=== PATIENT | female | born 1990 ===

== ENCOUNTER 2020-11-17 17:15 | Inpatient (IN) | payer OTHER, SELFPAY ==
--- NOTE | ~2020-11-17 | CT_ITS ---
EXAMINATION: CT ABDOMEN AND PELVIS WITH CONTRAST CLINICAL INFORMATION: Lower abdominal pain. Elevated white blood cell count. Rule out appendicitis COMPARISON: Pelvic ultrasound earlier the same day TECHNIQUE: Multidetector volumetric images were obtained from the superior aspect of the liver through the pubic symphysis following administration 85 mL of Omnipaque 350 intravenous contrast. Sagittal and coronal reformatted images were obtained on the technologist's workstation. Oral contrast: No This CT examination was performed using dose optimization techniques as appropriate, variously including the following: *Automated exposure control *Adjustment of mA and/or kV according to patient size (this includes techniques or standardized protocols for targeted exams where dose is matched to indication/reason for exam; i.e. extremities or head) *Use of iterative reconstruction technique DLP: 774 mGy-cm FINDINGS: LUNG BASES: The visualized lung bases are unremarkable. LIVER, GALLBLADDER, AND BILIARY TREE: Liver is diffusely hypoattenuating consistent with diffuse hepatic steatosis. There is a likely gallstone in the gallbladder. No concerning focal liver lesion. No biliary ductal dilatation. PANCREAS: Unremarkable. SPLEEN: Unremarkable. ADRENAL GLANDS: Unremarkable. KIDNEYS AND URETERS: The kidneys are normal in size, shape, and attenuation. No hydronephrosis, hydroureter, or calculi seen. No perinephric stranding. BLADDER: Unremarkable. GASTROINTESTINAL TRACT: Stomach and small bowel are nondilated. The appendix is not seen but there are no right lower quadrant inflammatory changes to suggest acute appendicitis. No evidence of colitis or diverticulitis. ABDOMINAL WALL: No significant hernia is appreciated. LYMPH NODES: Normal. VASCULAR: Unremarkable. PELVIC VISCERA: As noted on the earlier ultrasound, there is fluid and material expanding the endocervical canal. Higher density material measures 46 Hounsfield units, possibly clot or soft tissue. The right ovary is normal in appearance. There is fluid and fat stranding adjacent the left adnexa. There is a somewhat tubular appearance on coronal images. OSSEOUS STRUCTURES: Unremarkable. CT/CT abdomen pelvis w con IMPRESSION: The appendix is not seen but there are no right lower quadrant inflammatory changes to suggest appendicitis. There is an abnormal appearance to the left ovary which appears enlarged with adjacent fluid and fat stranding. There is a somewhat tubular appearance on coronal images. Pelvic inflammatory disease with hydrosalpinx/pyosalpinx could give this appearance. Left ovarian torsion could contribute to the findings but there were normal arterial and venous spectral Doppler waveforms on the earlier ultrasound. Abnormal appearance of the endocervical canal with either clot or soft tissue expanding the endocervical canal. Recommend correlation with direct visualization.
--- NOTE | ~2020-11-17 | US_ITS ---
EXAMINATION: PELVIC ULTRASOUND CLINICAL INFORMATION: Pain COMPARISON: None TECHNIQUE: Transabdominal and transvaginal pelvic ultrasound was performed. Transvaginal exam was performed for better visualization of the uterus and ovaries. FINDINGS: The uterus is anteverted and measures 10.5 x 5.7 6.2 cm in dimension. No focal uterine lesion is seen. Endometrial thickness is normal measuring 1 cm. The endocervical canal is dilated. There is heterogeneous soft tissue mass seen in the endocervical canal measuring 2.9 x 1.5 x 2.3 cm in sagittal AP and transverse dimension. Demonstrates minimal vascularity. Differential would include blood clot and mass/polyp. The right ovary measures 3.5 x 2.6 x 2.6 cm and contains a 1.9 x 1.5 x 2 cm cyst. The left ovary measures 4.6 x 3 x 2.8 cm, volume 20 mL and is slightly enlarged. No focal left ovarian lesion is seen. There is no fluid in the pelvis. US/US transvaginal IMPRESSION: Fluid in the endocervical canal and heterogeneous appearing soft tissue questionable for blood clot versus a mass or polyp. Small right ovarian cyst. Slightly prominent left ovary.
--- NOTE | ~2020-11-17 | US_ITS ---
EXAMINATION: PELVIC ULTRASOUND CLINICAL INFORMATION: Pain COMPARISON: None TECHNIQUE: Transabdominal and transvaginal pelvic ultrasound was performed. Transvaginal exam was performed for better visualization of the uterus and ovaries. FINDINGS: The uterus is anteverted and measures 10.5 x 5.7 6.2 cm in dimension. No focal uterine lesion is seen. Endometrial thickness is normal measuring 1 cm. The endocervical canal is dilated. There is heterogeneous soft tissue mass seen in the endocervical canal measuring 2.9 x 1.5 x 2.3 cm in sagittal AP and transverse dimension. Demonstrates minimal vascularity. Differential would include blood clot and mass/polyp. The right ovary measures 3.5 x 2.6 x 2.6 cm and contains a 1.9 x 1.5 x 2 cm cyst. The left ovary measures 4.6 x 3 x 2.8 cm, volume 20 mL and is slightly enlarged. No focal left ovarian lesion is seen. There is no fluid in the pelvis. US/US pelvic complete IMPRESSION: Fluid in the endocervical canal and heterogeneous appearing soft tissue questionable for blood clot versus a mass or polyp. Small right ovarian cyst. Slightly prominent left ovary.
[2020-11-17 19:14] VITALS: BP 147/90; PULSE 115; RESP 16; TEMP 37.1; O2SAT 100; BMI 32.4
--- NOTE | 2020-11-17 19:15 | ED.FEMALEGU ---
HPI - Female Genitourinary General Chief complaint: Back Pain/Injury Stated complaint: menstrual pain Time Seen by Provider: 11/17/20 19:15 Source: patient Mode of arrival: ambulatory Limitations: no limitations History of Present Illness HPI Narrative: 29 yo female on her period here with lower abdominal pain c/o suprapubic pelvic and wraps around her back - at this time no prior events when she has had her menses MD elicited complaint: pelvic pain Onset (ago): day(s) (2) Location of symptoms: suprapubic and low back Severity: moderate Quality of pain: aching Consistency: constant Vaginal discharge: none Vaginal bleeding: other (typical period for her) Exacerbating factors: none Relieving factors: none Associated symptoms: denies other symptoms Related Data Allergies Allergy/AdvReac Type Severity Reaction Status Date / Time No Known Allergies Allergy Verified 11/17/20 19:20 Review of Systems Review of Systems: Constitutional : No Weight loss, No Fever, No Chills ENT/Mouth : No sore throat, No Rhinorrhea Eyes: No Swelling, No Redness Cardiovascular : No Chest Pain, No SOB, NoEdema Respiratory : No Cough, No Sputum, No Wheezing Gastrointestinal : no Nausea, no Vomiting, no Diarrhea, positive abdominal Pain, No Hematochezia, No Melena Genitourinary : No Dysuria, No Urinary Frequency, No Hematuria, No Urgency Musculoskeletal : No joint pain, No Myalgias, No Joint Swelling Skin : No Skin Lesions, No rash Neuro : No Weakness, No Numbness, No Dizziness, No Headache Psych : No Anxiety/Panic, No Depression Heme/Lymph: No Bruising, No Lymphadenopathy Endocrine : No Polyuria, No Polydipsia All other systems reviewed and are negative. ON LICENSE OF [facility] Past Medical History Attestation statement: The following information was validated with the patient. Medical History (Updated 11/17/20 @ 22:46 by Surekha Keys DO) No active medical problems Social History Social History (Updated 11/17/20 @ 19:31 by Surekha Keys DO) Smoking Status: Never smoker Use of substances other than those prescribed or required for medical reasons: No Advance Directives: No Advance Directives Information Provided: Yes Patient : No Physical Exam Vital Signs: Vital Signs: Last Vital Signs Temp 98.4 F 11/17/20 22:28 Pulse 87 11/17/20 22:28 Resp 14 11/17/20 22:28 BP 140/91 H 11/17/20 22:28 Pulse Ox 100 11/17/20 22:28 Body Mass Index 32.4 Appearance: Alert. Oriented X3. No acute distress. Eyes: Pupils equal, round and reactive to light. ENT: Pharynx normal. Neck: Normal inspection. Neck supple. CVS: Normal heart rate and rhythm. Pulses normal. Respiratory: No respiratory distress. Breath sounds normal. Abdomen: Soft and mild suprapubic ttp no rebound or guarding : internal exam - L sided ovarian ttp + fullness felt, no CMT, pink discharge noted on exam from os Skin: Skin warm and dry. Normal skin color. Normal skin turgor. Extremities: No lower extremity edema. No calf ttp Neuro: Oriented X 3. No motor deficit. No sensory deficit. Course Course Course Narrative: 1031 pm possible infection suspected, lactic acid, cultures, IV antibiotics, call to OBGYN at this time Dr. Menendez ?possible TOA will admit for further workup and management MDM - Female Genitourinary MDM Narrative Medical decision making narrative: 29 yo female suprapubic abdominal pain on her menses but does not usually have pain like this - pain across entire abdomen at this time will need labs, PO pain control, US to evaluate ovaries for cyst, bilateral pain without n/v seems atypical for appendicitis Lab Data Result diagrams: 11/17/20 19:33 11/17/20 19:33 Labs: Lab Results 11/17/20 11/17/20 11/17/20 Range/Units 19:33 19:33 19:33 WBC 16.4 H (4.8-10.8) X10*3/uL RBC 4.55 (4.20-5.50) X10*6/uL Hgb 13.0 (12.0-16.0) g/dl Hct 38.8 (37-47) % MCV 85.3 (80-98) fL MCH 28.6 (27.0-33.0) pg MCHC 33.5 (31.0-35.0) g/dl RDW 12.5 (11.0-16.0) % Plt Count 329 (160-400) X10*3/uL MPV 10.6 (9.4-12.3) fL Immature Gran % (Auto) 0.5 H (0.0-0.4) % Neut % (Auto) 78.2 H (45-73) % Lymph % (Auto) 13.7 L (20-40) % [place] % (Auto) 6.8 (2-11) % Eos % (Auto) 0.4 (0-4) % Baso % (Auto) 0.4 (0-2) % Lymph # (Auto) 2.2 (1.2-4.9) X10*3/uL [place] # (Auto) 1.1 (0.1-1.2) X10*3/uL Eos # (Auto) 0.1 (0.0-0.4) X10*3/uL Baso # (Auto) 0.1 (0.0-0.2) X10*3/uL Abs Immat Gran (auto) 0.09 H (0.00-0.03) X10*3/uL Absolute Neuts (auto) 12.8 H (2.0-8.3) X10*3/uL Absolute Nucleated RBC 0.000 (0.0-0.012) X10*3/uL Nucleated RBC % (auto) 0.0 (0.0-0.2) /100WBC Sodium 138 (135-145) mmol/L Potassium 3.8 (3.3-5.1) mmol/L Chloride 103 (96-108) mmol/L Carbon Dioxide 25 (22-29) mmol/L Anion Gap 14 (12-20) BUN 10 (9-16) mg/dL Creatinine 0.76 (0.5-1.4) mg/dL Estim Creat Clear Calc 114.7 Estimated GFR > 60 Random Glucose 112 (60-115) mg/dL Calcium 9.5 (8.4-10.2) mg/dL Total Bilirubin 0.5 (0.0-1.0) mg/dL Direct Bilirubin 0.2 (0.0-0.5) mg/dL AST 16 (5-31) U/L ALT 30 (0-31) U/L Alkaline Phosphatase 87 (39-117) U/L Total Protein 7.6 (6.5-8.0) g/dL Albumin 4.0 (3.5-5.0) g/dL Lipase 8 (8-78) U/L Urine Color YELLOW Urine Appearance CLEAR Urine pH 6.0 (5.0-8.0) Ur Specific [place] 1.025 (1.005-1.025) Urine Protein NEG (NEG-TRACE) MG/DL Urine Glucose (UA) NEG (NEG) MG/DL Urine Ketones 5 (NEG) MG/DL Urine Blood 2+ H (NEG) Urine Nitrite NEG (NEG) Ur Leukocyte Esterase NEG (NEG) Urine RBC 0-2 (0) /HPF Urine WBC 0-2 (0-4) /HPF Ur Squamous Epith Cells 2+ /LPF Urine Bacteria 2+ /LPF Urine Mucus NONE /LPF Urine Test (NEGATIVE) 11/17/20 Range/Units 19:33 WBC (4.8-10.8) X10*3/uL RBC (4.20-5.50) X10*6/uL Hgb (12.0-16.0) g/dl Hct (37-47) % MCV (80-98) fL MCH (27.0-33.0) pg MCHC (31.0-35.0) g/dl RDW (11.0-16.0) % Plt Count (160-400) X10*3/uL MPV (9.4-12.3) fL Immature Gran % (Auto) (0.0-0.4) % Neut % (Auto) (45-73) % Lymph % (Auto) (20-40) % [place] % (Auto) (2-11) % Eos % (Auto) (0-4) % Baso % (Auto) (0-2) % Lymph # (Auto) (1.2-4.9) X10*3/uL [place] # (Auto) (0.1-1.2) X10*3/uL Eos # (Auto) (0.0-0.4) X10*3/uL Baso # (Auto) (0.0-0.2) X10*3/uL Abs Immat Gran (auto) (0.00-0.03) X10*3/uL Absolute Neuts (auto) (2.0-8.3) X10*3/uL Absolute Nucleated RBC (0.0-0.012) X10*3/uL Nucleated RBC % (auto) (0.0-0.2) /100WBC Sodium (135-145) mmol/L Potassium (3.3-5.1) mmol/L Chloride (96-108) mmol/L Carbon Dioxide (22-29) mmol/L Anion Gap (12-20) BUN (9-16) mg/dL Creatinine (0.5-1.4) mg/dL Estim Creat Clear Calc Estimated GFR Random Glucose (60-115) mg/dL Calcium (8.4-10.2) mg/dL Total Bilirubin (0.0-1.0) mg/dL Direct Bilirubin (0.0-0.5) mg/dL AST (5-31) U/L ALT (0-31) U/L Alkaline Phosphatase (39-117) U/L Total Protein (6.5-8.0) g/dL Albumin (3.5-5.0) g/dL Lipase (8-78) U/L Urine Color Urine Appearance Urine pH (5.0-8.0) Ur Specific [place] (1.005-1.025) Urine Protein (NEG-TRACE) MG/DL Urine Glucose (UA) (NEG) MG/DL Urine Ketones (NEG) MG/DL Urine Blood (NEG) Urine Nitrite (NEG) Ur Leukocyte Esterase (NEG) Urine RBC (0) /HPF Urine WBC (0-4) /HPF Ur Squamous Epith Cells /LPF Urine Bacteria /LPF Urine Mucus /LPF Urine Test NEGATIVE (NEGATIVE) Discharge Plan Discharge Clinical Impression: TOA (tubo-ovarian abscess) Leukocytosis Qualifiers: Leukocytosis type: unspecified Qualified Code(s): D72.829 - Elevated white blood cell count, unspecified Abdominal pain Qualifiers: Abdominal location: left lower quadrant Qualified Code(s): R10.32 - Left lower quadrant pain Patient Disposition: Admitted As Inpatient
[2020-11-17 19:41] LABS: MANUAL DIFF FLAG NO
[2020-11-17 19:42] LABS: Basophils Absolute Auto 0.1 X10*3/uL (0.0-0.2); Basophils Percent Auto 0.4 % (0-2); Eosinophils Absolute Auto 0.1 X10*3/uL (0.0-0.4); Eosinophils Percent Auto 0.4 % (0-4); Hematocrit 38.8 % (37-47); Imm Gran Abs Auto 0.09 X10*3/uL (0.00-0.03); Imm Gran Pct Auto 0.5 % (0.0-0.4); Lymphocytes Absolute Auto 2.2 X10*3/uL (1.2-4.9); Lymphocytes Percent Auto 13.7 % (20-40); Mean Corpuscular HGB Conc 33.5 g/dl (31.0-35.0); Mean Corpuscular Hemoglobin 28.6 pg (27.0-33.0); Mean Corpuscular Volume 85.3 fL (80-98); Mean Platelet Volume 10.6 fL (9.4-12.3); Monocytes Absolute Auto 1.1 X10*3/uL (0.1-1.2); Monocytes Percent Auto 6.8 % (2-11); Neutrophils Absolute Auto 12.8 X10*3/uL (2.0-8.3); Neutrophils Percent Auto 78.2 % (45-73); Platelet Count 329 X10*3/uL (160-400); Red Blood Count 4.55 X10*6/uL (4.20-5.50); Red Cell Distribution Width 12.5 % (11.0-16.0); White Blood Count 16.4 X10*3/uL (4.8-10.8)
[2020-11-17 19:47] LABS: Glucose Urine UA NEG (NEG); Leukocyte Esterase Urine NEG (NEG); Nitrite Urine NEG (NEG); Specific Gravity - Urine 1.025 (1.005-1.025); Urine Blood 2+ (NEG); Urine Ketones 5 MG/DL (NEG); Urine Protein NEG (NEG-TRACE)
[2020-11-17 19:49] LABS: Appearance Urine CLEAR; Color Urine YELLOW
[2020-11-17 19:51] LABS: UPreg QC Valid YES; Urine Pregnancy NEGATIVE (NEGATIVE)
[2020-11-17 20:06] LABS: Bacteria Urine 2+ /LPF; RBC Urine 0-2 /HPF (0); Squamous Epithelial Cell Urine 2+ /LPF; WBC Urine 0-2 /HPF (0-4)
[2020-11-17 20:14] LABS: Alanine Aminotransferase 30 U/L (0-31); Alkaline Phosphatase 87 U/L (39-117); Anion Gap 14 (12-20); Aspartate Amino Transferase 16 U/L (5-31); Bilirubin Direct 0.2 mg/dL (0.0-0.5); Bilirubin Total 0.5 mg/dL (0.0-1.0); Blood Urea Nitrogen 10 mg/dL (9-16); Calcium 9.5 mg/dL (8.4-10.2); Carbon Dioxide 25 mmol/L (22-29); Chloride 103 mmol/L (96-108); Creatinine Clr Calc Pharmacy 114.7; Estimated Glomerular Filt Rate > 60; Glucose Random 112 mg/dL (60-115); Lipase 8 U/L (8-78); Potassium 3.8 mmol/L (3.3-5.1); Sodium 138 mmol/L (135-145); Total Protein 7.6 g/dL (6.5-8.0)
[2020-11-17] MEDS: Ibuprofen 600 MG TABLET PO (20:15)
[2020-11-17] MEDS: HYDROcodone Bit/Acetam 5/325 TABLET 1 TAB PO (20:16)
[2020-11-17] MEDS: iohexoL 350 MG/ML 100 ML INFUS..BTL IV (22:07)
[2020-11-17 22:28] VITALS: BP 140/91; PULSE 87; RESP 14; TEMP 36.9; O2SAT 100
--- NOTE | 2020-11-17 23:03 | PM.GYNHP ---
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 The patient's pain started getting worse over the coming 2 days till Wednesday evening when she presented emergency room with worsening of her pain no associated urinary or GI symptoms, no vaginal bleeding or discharge. 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 Systems Review of Systems ROS Unobtainable: All systems reviewed & are unremarkable except as noted in HPI and below Cardiovascular: Denies Palpatations, Loss of consciousness and Chest pain Respiratory: Denies Cough, Wheezing and Shortness of breath Musculoskeletal: Denies Low back pain Gastrointestinal: Denies Heartburn, Constipation, Diarrhea, Nausea and Vomiting Genitourinary: Denies Pain with urination, Burning with urination and Urinary frequency Neurological: Denies Migranes Psychological: Denies Depression OB PMFSH Past Medical History Medical History No active medical problems Social History Social History Household Members: Family Household Members Other:: mother Housing: Apartment Smoking Status: Never smoker Use of substances other than those prescribed or required for medical reasons: No Currently Displaying Signs/Symptoms of Drug Intoxication Withdrawal: No Have you been hit, kicked, punched, or otherwise hurt by someone within the past year? If so, by whom?: No Do you feel safe in your current relationship?: Yes Is there a partner from a previous relationship who is making you feel unsafe now?: No Are you made to feel afraid or neglected: No Advance Directives: No Advance Directives Information Provided: Yes Do you have thoughts of harming others: None Do you have a plan to hurt others: No Plan Recently lost weight without trying: No Nutrition Risks: No Nutritional Risk Patient : No : No Poor oral hygiene: No service: No Current occupational status: employed Meds Allergies Allergy/AdvReac Type Severity Reaction Status Date / Time No Known Allergies Allergy Verified 11/17/20 19:20 Active Medications: Current Medications Generic Name Dose Route Start Last Admin Trade Name Freq PRN Reason Stop Dose Admin Pharmacy Consult 1 each 11/17/20 22:43 Consult Rx Perform Med Rec MISCELLANE ONCE PRN Consult order GEOGRAPHIC INFORMATION SYSTEMS ANALYST Physical Exam Vitals Vital signs: Temp Pulse Resp BP Pulse Ox 98.4 F 87 14 140/91 H 100 11/17/20 22:28 11/17/20 22:28 11/17/20 22:28 11/17/20 22:28 11/17/20 22:28 Body Mass Index 32.4 Constitutional General Appearance: Healthy appearing, Well-nourished and Well-developed Psychiatric Mood and Affect: active and alert, normal mood and normal affect Skin Appearance: No rashes and No lesions Lungs Respiratory Effort: No intercostal retractions Auscultation: Clear to auscultation Cardiovascular Auscultation: RRR Abdomen Auscultation/Inspection/Palpation: Normal bowel sounds, Non-distended and Tenderness (Left lower quadrant) Female Genitalia (Pelvic) Exam: Deferred GEOGRAPHIC INFORMATION SYSTEMS ANALYST - Results Labs CBC & Chem 7: 11/18/20 06:51 11/17/20 19:33 Labs: Short CBC 11/17/20 Range/Units 19:33 WBC 16.4 H (4.8-10.8) X10*3/uL Hgb 13.0 (12.0-16.0) g/dl Hct 38.8 (37-47) % Plt Count 329 (160-400) X10*3/uL BMP 11/17/20 19:33 Sodium 138 Potassium 3.8 Chloride 103 Carbon Dioxide 25 BUN 10 Creatinine 0.76 Calcium 9.5 Liver Function 11/17/20 Range/Units 19:33 Total Bilirubin 0.5 (0.0-1.0) mg/dL Direct Bilirubin 0.2 (0.0-0.5) mg/dL AST 16 (5-31) U/L ALT 30 (0-31) U/L Alkaline Phosphatase 87 (39-117) U/L Albumin 4.0 (3.5-5.0) g/dL Urine 11/17/20 11/17/20 Range/Units 19:33 19:33 Urine Color YELLOW Urine Appearance CLEAR Urine pH 6.0 (5.0-8.0) Ur Specific [place] 1.025 (1.005-1.025) Urine Protein NEG (NEG-TRACE) MG/DL Urine Glucose (UA) NEG (NEG) MG/DL Urine Test NEGATIVE (NEGATIVE) Assessment and Plan (1) TOA (tubo-ovarian abscess): Status: Acute Will admit start for IV antibiotics with cefotetan 2 g IV Q 12 with doxycycline 100 mg IV q.12, repeat CBC, HIV, hepatitis-B surface antigen, hepatitis-C surface antibody in a.m. pain management with p.o. ibuprofen, oxycodone, Tylenol as needed
[2020-11-17] MEDS: cefoTEtan disodium 2 GM in 0.9 % Sodium Chloride 50 ML IV (23:31)
[2020-11-17 23:33] LABS: COVID-19 Test Negative (Negative)
[2020-11-17 23:43] LABS: Lactic Acid 0.7 mmol/L (0.5-2.0)
--- NOTE | 2020-11-18 01:49 | PC.NURSE ---
PELVIC PERFORMED AT BEDSIDE BY DR DAVIS AND PCT WITNESS. PT AWARE SHE WILL BE ADMITTED FOR ANTIBIOTIC THERAPY.
--- NOTE | 2020-11-18 01:50 | PC.NURSE ---
PT MOVED TO MAIN ED ROOM 21 REPORT GIVEN TO LC AL.
[2020-11-18] MEDS: Lactated Ringers 1,000 ML 125 ML IVCONT ×3 (03:24→20:45)
[2020-11-18] MEDS: oxyCODONE HCl Immed Release 5 MG TABLET PO ×2 (03:25→20:45)
[2020-11-18 07:15] LABS: MANUAL DIFF FLAG NO
[2020-11-18 07:31] LABS: Basophils Percent Auto 0.3 % (0-2); Eosinophils Absolute Auto 0.1 X10*3/uL (0.0-0.4); Hematocrit 38.4 % (37-47); Hemoglobin 12.5 g/dl (12.0-16.0); Imm Gran Abs Auto 0.07 X10*3/uL (0.00-0.03); Imm Gran Pct Auto 0.6 % (0.0-0.4); Lymphocytes Percent Auto 15.5 % (20-40); Mean Corpuscular HGB Conc 32.6 g/dl (31.0-35.0); Mean Corpuscular Hemoglobin 28.4 pg (27.0-33.0); Mean Corpuscular Volume 87.3 fL (80-98); Mean Platelet Volume 10.8 fL (9.4-12.3); Monocytes Absolute Auto 0.9 X10*3/uL (0.1-1.2); Neutrophils Absolute Auto 9.6 X10*3/uL (2.0-8.3); Neutrophils Percent Auto 75.6 % (45-73); Platelet Count 295 X10*3/uL (160-400); Red Cell Distribution Width 12.5 % (11.0-16.0); White Blood Count 12.6 X10*3/uL (4.8-10.8)
[2020-11-18 08:00] VITALS: BP 133/79; PULSE 102; RESP 18; TEMP 36.4; O2SAT 97
[2020-11-18 08:46] LABS: BV Int Neg Control Negative (Negative); BV Int Pos Control Positive (Positive)
[2020-11-18 08:53] LABS: CT PCR NOT DETECTED (Not Detect.); NG PCR NOT DETECTED (Not Detect.)
[2020-11-18 09:04] LABS: Syphilis Screen Nonreactive (Nonreactive)
--- NOTE | 2020-11-18 09:36 | MHC.CM.PN ---
PATIENT LIVES WITH HER MOTHER. SHE IS INDEPENDENT WITH HER ADLS. NO DME OR VNA SERVICES. SHE WILL DISCHARGE HOME WITH NO SERVICES. FAMILY WILL PROVIDE TRANSPORTATION. PCP IS NOT DR FUNEZ. SHE NOW SEES GRACE CASTILLO. UPDATE MADE TO CASE MANAGEMENT OFFICE.
[2020-11-18] MEDS: cefoTEtan disodium 2 GM in 0.9 % Sodium Chloride 50 ML IV ×2 (10:18→22:00)
[2020-11-18] MEDS: Doxycycline Hyclate 100 MG in 0.9 % Sodium Chloride 250 ML 166.67 MG IV ×2 (11:56→22:42)
[2020-11-18 11:59] VITALS: BP 127/85; PULSE 89; RESP 18; TEMP 36.2; O2SAT 94
[2020-11-18 13:25] LABS: HBsAGNum1 0.26 S/CO (0.00-0.99); HIV AB/AG Nonreactive (Nonreactive); HIV Num 1 0.04 S/CO (0.00-0.99); Hepatitis B Surface Antigen Negative (Negative)
--- NOTE | 2020-11-18 13:32 | P.PNOB_ITS ---
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 Has been on cefotetan/doxycycline IV since yesterday evening, the pain has improved markedly, no fever, chills nausea or vomiting no other symptoms. 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 Physical Exam Vitals Vital signs: Temp Pulse Resp BP Pulse Ox 97.1 F 89 18 127/85 94 11/18/20 11:59 11/18/20 11:59 11/18/20 11:59 11/18/20 11:59 11/18/20 11:59 Body Mass Index 32.4 Abdomen Auscultation/Inspection/Palpation: Normal bowel sounds, Soft, Non-distended and No tenderness SWIMMING POOL ATTENDANT - Prog Note: Results Labs CBC & Chem 7: 11/18/20 06:51 11/17/20 19:33 Labs: Laboratory Results - last 24 hr 11/17/20 11/17/20 11/17/20 19:33 19:33 19:33 WBC 16.4 H RBC 4.55 Hgb 13.0 Hct 38.8 MCV 85.3 MCH 28.6 MCHC 33.5 RDW 12.5 Plt Count 329 MPV 10.6 Immature Gran % (Auto) 0.5 H Neut % (Auto) 78.2 H Lymph % (Auto) 13.7 L [place] % (Auto) 6.8 Eos % (Auto) 0.4 Baso % (Auto) 0.4 Lymph # (Auto) 2.2 Jay # (Auto) 1.1 Eos # (Auto) 0.1 Baso # (Auto) 0.1 Abs Immat Gran (auto) 0.09 H Absolute Neuts (auto) 12.8 H Absolute Nucleated RBC 0.000 Nucleated RBC % (auto) 0.0 Sodium 138 Potassium 3.8 Chloride 103 Carbon Dioxide 25 Anion Gap 14 BUN 10 Creatinine 0.76 Estim Creat Clear Calc 114.7 Estimated GFR > 60 Random Glucose 112 Lactic Acid Calcium 9.5 Total Bilirubin 0.5 Direct Bilirubin 0.2 AST 16 ALT 30 Alkaline Phosphatase 87 Total Protein 7.6 Albumin 4.0 Lipase 8 Urine Color YELLOW Urine Appearance CLEAR Urine pH 6.0 Ur Specific [place] 1.025 Urine Protein NEG Urine Glucose (UA) NEG Urine Ketones 5 Urine Blood 2+ H Urine Nitrite NEG Ur Leukocyte Esterase NEG Urine RBC 0-2 Urine WBC 0-2 Ur Squamous Epith Cells 2+ Urine Bacteria 2+ Urine Mucus NONE Urine Test T.pallidum Ab (EIA) Connie species DNA Chlam trachomat DNA PCR COVID-19 ([facility]) COVID-19 Clin Com [place] DNA Probe N.gonorrhoeae DNA (PCR) Trichomonas DNA Probe 11/17/20 11/17/20 11/17/20 19:33 19:33 23:03 WBC RBC Hgb Hct MCV MCH MCHC RDW Plt Count MPV Immature Gran % (Auto) Neut % (Auto) Lymph % (Auto) Jay % (Auto) Eos % (Auto) Baso % (Auto) Lymph # (Auto) Jay # (Auto) Eos # (Auto) Baso # (Auto) Abs Immat Gran (auto) Absolute Neuts (auto) Absolute Nucleated RBC Nucleated RBC % (auto) Sodium Potassium Chloride Carbon Dioxide Anion Gap BUN Creatinine Estim Creat Clear Calc Estimated GFR Random Glucose Lactic Acid 0.7 Calcium Total Bilirubin Direct Bilirubin AST ALT Alkaline Phosphatase Total Protein Albumin Lipase Urine Color Urine Appearance Urine pH Ur Specific [place] Urine Protein Urine Glucose (UA) Urine Ketones Urine Blood Urine Nitrite Ur Leukocyte Esterase Urine RBC Urine WBC Ur Squamous Epith Cells Urine Bacteria Urine Mucus Urine Test NEGATIVE T.pallidum Ab (EIA) Nonreactive Connie species DNA Chlam trachomat DNA PCR COVID-19 ([facility]) COVID-19 Clin Com [place] DNA Probe N.gonorrhoeae DNA (PCR) Trichomonas DNA Probe 11/17/20 11/17/20 11/17/20 23:04 23:04 23:05 WBC RBC Hgb Hct MCV MCH MCHC RDW Plt Count MPV Immature Gran % (Auto) Neut % (Auto) Lymph % (Auto) Jay % (Auto) Eos % (Auto) Baso % (Auto) Lymph # (Auto) Jay # (Auto) Eos # (Auto) Baso # (Auto) Abs Immat Gran (auto) Absolute Neuts (auto) Absolute Nucleated RBC Nucleated RBC % (auto) Sodium Potassium Chloride Carbon Dioxide Anion Gap BUN Creatinine Estim Creat Clear Calc Estimated GFR Random Glucose Lactic Acid Calcium Total Bilirubin Direct Bilirubin AST ALT Alkaline Phosphatase Total Protein Albumin Lipase Urine Color Urine Appearance Urine pH Ur Specific [place] Urine Protein Urine Glucose (UA) Urine Ketones Urine Blood Urine Nitrite Ur Leukocyte Esterase Urine RBC Urine WBC Ur Squamous Epith Cells Urine Bacteria Urine Mucus Urine Test T.pallidum Ab (EIA) Connie species DNA Negative Chlam trachomat DNA PCR NOT DETECTED COVID-19 ([facility]) Negative COVID-19 Clin Com See Note [place] DNA Probe Positive A N.gonorrhoeae DNA (PCR) NOT DETECTED Trichomonas DNA Probe Negative 11/18/20 06:51 WBC 12.6 H RBC 4.40 Hgb 12.5 Hct 38.4 MCV 87.3 MCH 28.4 MCHC 32.6 RDW 12.5 Plt Count 295 MPV 10.8 Immature Gran % (Auto) 0.6 H Neut % (Auto) 75.6 H Lymph % (Auto) 15.5 L [place] % (Auto) 7.0 Eos % (Auto) 1.0 Baso % (Auto) 0.3 Lymph # (Auto) 2.0 Jay # (Auto) 0.9 Eos # (Auto) 0.1 Baso # (Auto) 0.0 Abs Immat Gran (auto) 0.07 H Absolute Neuts (auto) 9.6 H Absolute Nucleated RBC 0.000 Nucleated RBC % (auto) 0.0 Sodium Potassium Chloride Carbon Dioxide Anion Gap BUN Creatinine Estim Creat Clear Calc Estimated GFR Random Glucose Lactic Acid Calcium Total Bilirubin Direct Bilirubin AST ALT Alkaline Phosphatase Total Protein Albumin Lipase Urine Color Urine Appearance Urine pH Ur Specific [place] Urine Protein Urine Glucose (UA) Urine Ketones Urine Blood Urine Nitrite Ur Leukocyte Esterase Urine RBC Urine WBC Ur Squamous Epith Cells Urine Bacteria Urine Mucus Urine Test T.pallidum Ab (EIA) [place] species DNA Chlam trachomat DNA PCR COVID-19 ([facility]) COVID-19 Clin Com [place] DNA Probe N.gonorrhoeae DNA (PCR) Trichomonas DNA Probe SWIMMING 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 antibiotics for 10 more days. Explained to the patient the findings on physical exam, initial workup in the emergency room and subsequent blood work this morning white count improvement, negative GC and chlamydia, syphilis and Trichomonas, hepatitis-B surface antigen, hepatitis-C antibody are pending Time Spent With Patient Time: Total time spent is greater than 50% in coordination of care (as documented) at patient's floor/unit and/or counseling patient: 15 minutes Time with patient: 15 - 24 minutes
[2020-11-18] MEDS: Acetaminophen 325 MG TABLET 650 MG PO (15:31)
[2020-11-18 16:00] VITALS: BP 135/85; PULSE 98; RESP 14; TEMP 36.4; O2SAT 99
[2020-11-18 20:00] VITALS: BP 144/83; PULSE 99; RESP 16; TEMP 36.9; O2SAT 96
[2020-11-19] VITALS: BP 135/82; PULSE 97; RESP 16; TEMP 36.5; O2SAT 99
[2020-11-19 04:00] VITALS: BP 113/62; PULSE 101; RESP 16; TEMP 37.1; O2SAT 100
[2020-11-19] MEDS: Lactated Ringers 1,000 ML 125 ML IVCONT (04:53)
[2020-11-19 08:00] VITALS: BP 117/72; PULSE 104; RESP 18; TEMP 36.3; O2SAT 99
[2020-11-19 08:30] LABS: ~HepC Num1 0.08 S/CO (0.00-0.79); ~Hepatitis C Antibody Nonreactive (Nonreactive)
[2020-11-19] MEDS: cefoTEtan disodium 2 GM in 0.9 % Sodium Chloride 50 ML IV (09:24)
[2020-11-19] MEDS: Doxycycline Hyclate 100 MG in 0.9 % Sodium Chloride 250 ML 166.67 MG IV (10:03)
--- NOTE | 2020-11-19 11:07 | P.PNOB_ITS ---
GENERAL SERVICE TECHNICIAN - Subjective Subjective Date of Service: 11/19/20 Interval history: Doing well with no complaints. Has been on cefotetan/doxycycline IV since Wednesday evening, the pain has improved markedly, no fever, chills nausea or vomiting no other symptoms. On no and a G6 [employer] Physical Exam Vitals Vital signs: Temp Pulse Resp BP Pulse Ox 97.4 F 104 H 18 117/72 99 11/19/20 08:00 11/19/20 08:00 11/19/20 08:00 11/19/20 08:00 11/19/20 08:00 Body Mass Index 32.4 Abdomen Auscultation/Inspection/Palpation: Normal bowel sounds, Soft, Non-distended and No tenderness GENERAL SERVICE TECHNICIAN - Prog Note: Results Labs CBC & Chem 7: 11/18/20 06:51 11/17/20 19:33 Labs: Laboratory Results - last 24 hr 11/18/20 06:51 Hep Bs Antigen Negative Hepatitis C Ab (EIA) Nonreactive HIV 1&2 Ab/P24 Ag 4thGn Nonreactive GENERAL SERVICE TECHNICIAN - A/P (1) TOA (tubo-ovarian abscess): Status: Acute Assessment and Plan: Will discharge patient home on p.o. doxycycline 100 mg p.o. b.i.d. for 14 days and follow-up in the office in 2 weeks. Instructions given to patient to call if fever above 100.4, abdominal pain, vaginal bleeding, nausea and vomiting occur. Time Spent With Patient Time: Total time spent is greater than 50% in coordination of care (as documented) at patient's floor/unit and/or counseling patient: Time with patient: less than 15 minutes
--- NOTE | 2020-11-19 11:49 | MHC.CM.PN ---
PATIENT IS DISCHARGED HOME WITH NO SERVICES. RN AWARE OF PLAN.
--- NOTE | 2020-11-20 09:16 | PM.DS ---
DS: Providers Provider Date of Service: 11/20/20 Date of admission: 11/17/20 22:46 Primary care physician: Joey Mcdowell MD DS: Diagnosis Discharge Diagnosis (1) TOA (tubo-ovarian abscess): Status: Acute DS: Medications Discharge Medications Home Medications: Previous Rx's Medication Instructions Recorded doxycycline monohydrate 100 mg 100 mg PO BID #14 cap 11/20/20 capsule DS: Summary Time Spent with Patient Time attestation: Total time spent providing and/or coordinating discharge services: 10 minutes Discharge coordination time: Less than 30 minutes Quality: Stroke Does the patient have a stroke diagnosis?: No Physical Exam Vital Signs: Vital Signs: Last Vital Signs Temp 97.4 F 11/19/20 08:00 Pulse 104 H 11/19/20 08:00 Resp 18 11/19/20 08:00 BP 117/72 11/19/20 08:00 Pulse Ox 99 11/19/20 08:00 Body Mass Index 32.4 Const: General: cooperative, healthy appearing and comfortable GI: Inspection: Yes normal to inspection Palpation (GI): Soft to palpation and nontender Percussion: Yes normal to percussion Auscultation: normal bowel sounds DS: Data Data Completed and Pending Labs on day of discharge: Laboratory Results - last 24 hr 11/18/20 06:51 Hepatitis C Ab (EIA) Nonreactive Preliminary micro results at discharge 11/17/20 23:03 Blood Culture - Preliminary Blood - Venous No growth after 48 hours. 11/17/20 23:03 Blood Culture - Preliminary Blood - Venous No growth after 48 hours. Discharge Plan Discharge Patient Disposition: Home, Self-Care Discharge Diagnosis: TOA Referrals: Joey Mcdowell MD [Primary Care Provider] - 1 Week Discharge Medications: No Action doxycycline monohydrate 100 mg capsule 100 mg PO BID Qty: 14 RF: 0 Discharge Orders: Discharge Order (Routine); Ordered 11/19/20 Ordered By: Sonu Menendez Diet: advance to usual diet Activity on Discharge: As tolerated Stand Alone Forms: Patient Portal Discharge page Care Plan Goals: Continue doxycycline 100 mg p.o. b.i.d. for 14 days and follow-up in 14 days in the office. Call if fever above 100.4, abdominal pain, nausea and vomiting occur Health Concerns: Continue antibiotics Plan of Treatment: Doxycycline 100 mg p.o. b.i.d. for 14 days and follow up in 2 weeks in the office Assessment: Call if fever above 100.4, abdominal pain, nausea and vomiting occur Discharge Date/Time: 11/19/20 12:54
== END 2020-11-19 12:54 | disposition home or self-care (01) | DRG 531 ==
LOC: HO.ED 22:46 → HO.EDOVER 11-18 00:43 → HO.S3 11-18 02:19
PROVIDERS: Admitting Provider Obstetrics & Gynecology; Emergency Provider Emergency Medicine; PCP Internal Medicine; Visit Provider Obstetrics & Gynecology
DX: N70.93 Salpingitis and oophoritis, unspecified (principal); D72.829 Elevated white blood cell count, unspecified; Z20.822 Contact with and (suspected) exposure to COVID-19
CPT/HCPCS: 36415; 74177; 76830; 76856; 80048; 80076; 81001; 81025; 83605; 83690; 85025; 86780; 86803; 87040; 87340; 87389; 87480; 87491; 87510; 87591; 87635; 87660; 96365; 96366; 96368; 99024; 99285; Q9967

== ENCOUNTER 2021-09-08 10:46 | Outpatient (REF) | payer OTHER, SELFPAY ==
[2021-09-09 03:06] LABS: CT PCR NOT DETECTED (Not Detect.); NG PCR NOT DETECTED (Not Detect.)
[2021-09-09 14:11] LABS: BV Int Neg Control Negative (Negative); BV Int Pos Control Positive (Positive)
== END 2021-09-08 10:47 | disposition home or self-care (01) ==
LOC: HO.LAB 10:46
PROVIDERS: PCP Internal Medicine; Visit Provider Advanced Practice Midwife
DX: Z01.411 Encounter for gynecological examination (general) (routine) with abnormal findings (principal); N92.6 Irregular menstruation, unspecified; N70.93 Salpingitis and oophoritis, unspecified; Z20.2 Contact with and (suspected) exposure to infections with a predominantly sexual mode of transmission
CPT/HCPCS: 81025; 87086; 87480; 87491; 87510; 87591; 87660; 99212

== ENCOUNTER 2021-10-02 10:34 | Outpatient (REF) | payer OTHER, SELFPAY ==
--- NOTE | ~2021-10-02 | US_ITS ---
EXAM: Pelvic Ultrasound CLINICAL INDICATION: Irregular menstruation. COMPARISON: CT abdomen pelvis 11/17/2020 and pelvic ultrasound 11/17/2020 TECHNIQUE: The pelvis was evaluated using transabdominal and transvaginal imaging. FINDINGS: The uterus measures 11.3 x 4.7 x 5.5 cm in longitudinal by AP by transverse dimension. The endometrial stripe measures 1.4 cm. The cervix measures approximately 3 cm in length. Within the cervix there is a heterogeneous soft tissue avascular focus which measures approximately 2.3 x 0.7 x 1.9 cm (previously 2.9 x 1.5 x 2.3 cm). The left ovary measures approximately 2.5 x 2.8 x 2.7 cm. Abutting the left ovary is a 2 cm tubular hypoechoic focus which although nonspecific possibly represents a hydrosalpinx or exophytic cyst. The right ovary measures approximately 2.5 x 2.3 x 2.3 cm and is normal. There is no free fluid in the pelvis. US/US pelvic and transvaginal IMPRESSION: 1. Again demonstrated is an approximately 2.3 cm heterogeneous soft tissue avascular focus within the endocervical canal. The persistence of this finding is concerning for a large polyp. Direct inspection is warranted. 2. Small tubular hypoechoic focus adjacent to the left ovary is nonspecific but possibly a hydrosalpinx or exophytic cyst. This structure appears less prominent compared with CT imaging from 11/17/2020. 3. Endometrial stripe measures 1.4 cm in thickness. Correlation with menstrual cycle recommended.
== END 2021-10-02 10:35 | disposition home or self-care (01) ==
LOC: HO.US 10:34
PROVIDERS: Visit Provider Advanced Practice Midwife
DX: N70.93 Salpingitis and oophoritis, unspecified (principal); N92.6 Irregular menstruation, unspecified
CPT/HCPCS: 76830; 76856

== ENCOUNTER 2021-10-16 14:58 | Outpatient (REF) | payer OTHER, SELFPAY ==
[2021-10-17 03:16] LABS: CT PCR NOT DETECTED (Not Detect.); NG PCR NOT DETECTED (Not Detect.)
[2021-10-17 09:24] LABS: BV Int Neg Control Negative (Negative); BV Int Pos Control Positive (Positive)
[2021-10-21 19:31] LABS: HPV mRNA E6/E7 rflx Not Detected (Not Detected)
== END 2021-10-16 14:59 | disposition home or self-care (01) ==
LOC: HO.LAB 14:58
PROVIDERS: Visit Provider Advanced Practice Midwife
DX: N92.6 Irregular menstruation, unspecified (principal); Z11.51 Encounter for screening for human papillomavirus (HPV); Z20.2 Contact with and (suspected) exposure to infections with a predominantly sexual mode of transmission; N70.93 Salpingitis and oophoritis, unspecified; R93.89 Abnormal findings on diagnostic imaging of other specified body structures
CPT/HCPCS: 87480; 87491; 87510; 87591; 87624; 87660; 88142

== ENCOUNTER 2022-05-14 13:25 | Outpatient (REF) | payer OTHER, SELFPAY ==
--- NOTE | ~2022-05-14 | US_ITS ---
EXAMINATION: US PELVIS CLINICAL INFORMATION: Salpingitis and oophoritis, last menstrual period 04/12/2022. COMPARISON: 10/02/2021 TECHNIQUE: Ultrasound of the pelvis is performed using both transabdominal and transvaginal transducers along with Doppler. Transvaginal imaging is performed due to inadequate visualization transabdominally. FINDINGS: The uterus is heterogeneous and measures 10.6 x 5.0 x 6.6 cm. No discrete fibroids. Endometrial thickness is 1.1 cm. Right ovary seen only on transabdominal ultrasound images and is grossly unremarkable. Right ovary measures 2.9 x 2.2 x 1.9 cm, volume 6.6 mL. Left ovary is unremarkable and measures 3.7 x 2.2 x 2.9 cm, volume 12.0 mL. Complex fluid and soft tissue collection within the cervix measures approximately 4.2 x 1.3 x 3.4 cm. Previously identified possible 2.3 cm polyp may contribute to this appearance, but is less well defined today. Gynecologic consultation and possible biopsy recommended. Previously identified possible left hydrosalpinx or exophytic cyst not identified today, although visualization of the left ovary and left adnexa limited due to bowel gas and body habitus. US/US pelvic and transvaginal IMPRESSION: 1. Complex fluid and soft tissue collection within the cervix measures approximately 4.2 x 1.3 x 3.4 cm. Previously identified possible 2.3 cm polyp may contribute to this appearance, but is less well defined today. Gynecologic consultation and possible biopsy recommended. 2. Previously identified possible left hydrosalpinx or exophytic cyst not identified today, although visualization of the left ovary and left adnexa is limited due to bowel gas and body habitus.
== END 2022-05-14 13:26 | disposition home or self-care (01) ==
LOC: HO.US 13:25
PROVIDERS: Visit Provider Advanced Practice Midwife
DX: N70.93 Salpingitis and oophoritis, unspecified (principal); N92.6 Irregular menstruation, unspecified; R93.89 Abnormal findings on diagnostic imaging of other specified body structures
CPT/HCPCS: 76830; 76856

== ENCOUNTER 2022-12-03 13:29 | Outpatient (REF) | payer OTHER, SELFPAY ==
[2022-12-04 10:29] LABS: CT PCR NOT DETECTED (Not Detect.); NG PCR NOT DETECTED (Not Detect.)
[2022-12-04 11:13] LABS: BV Int Neg Control Negative (Negative); BV Int Pos Control Positive (Positive)
== END 2022-12-03 13:30 | disposition home or self-care (01) ==
LOC: HO.LNP 13:29
PROVIDERS: PCP Internal Medicine; Visit Provider Advanced Practice Midwife
DX: N93.9 Abnormal uterine and vaginal bleeding, unspecified (principal); N70.93 Salpingitis and oophoritis, unspecified; N84.1 Polyp of cervix uteri; N92.6 Irregular menstruation, unspecified; R10.2 Pelvic and perineal pain; R93.89 Abnormal findings on diagnostic imaging of other specified body structures; R10.9 Unspecified abdominal pain; Z98.51 Tubal ligation status; Z12.4 Encounter for screening for malignant neoplasm of cervix
CPT/HCPCS: 0353U; 58100; 87480; 87510; 87660; 88305; 99212

== ENCOUNTER 2022-12-04 14:50 | Outpatient (REF) | payer OTHER, SELFPAY ==
--- NOTE | ~2022-12-04 | US_ITS ---
EXAMINATION: US PELVIS CLINICAL INFORMATION: Polyp of cervix. COMPARISON: Portions of previous including 05/14/22, 10/02/21, 11/17/20 TECHNIQUE: Ultrasound of the pelvis is performed using both transabdominal and transvaginal transducers along with Doppler. Transvaginal imaging is performed due to inadequate visualization transabdominally. FINDINGS: Uterus: The uterus is anteverted and measures 12.2 x 4.8 x 5.6 cm. There is no abnormality in the expected region of the vagina. The cervix is abnormal. The estimated cervical length is approximately 4.4 cm. There is a complex echo pattern within the cervix including anechoic spaces and thin linear echogenic components. There are submucosal round and oval anechoic spaces. This is difficult to quantify but measures approximately 2.5 x 0.9 x 2.6 cm. On 11/17/20 this had a more solid appearance and measured approximately 2.8 x 1.5 x 2.3 cm and on that remote study there was some color signal. The endometrium measures approximately 0.9 cm. No focal endometrial mass. The myometrium is homogeneous. The uterine contour is smooth. Right ovary measures 1.9 x 2.3 x 3.1 cm. The right ovarian estimated volume a 7 mL. No suspicious right adnexal mass or collection Left ovary measures 2.5 x 2.3 x 1.9 cm. The estimated left ovarian volume is approximately 6 mL. No suspicious left adnexal mass. There may be a trace amount of fluid around the left ovary. Color mapping was performed. There is color signal present within each ovary. US/US pelvic and transvaginal IMPRESSION: There is a persistent abnormality of the cervix. This manifests as anechoic and linear septated components as well as some mucosal cystic components. The appearance 11/17/20 was more solid-appearing. Correlate with any biopsy results or visual inspection. If no intervention is undertaken continued imaging follow-up necessary
== END 2022-12-04 14:51 | disposition home or self-care (01) ==
LOC: HO.US 14:50
PROVIDERS: Visit Provider Advanced Practice Midwife
DX: R10.9 Unspecified abdominal pain (principal); N84.1 Polyp of cervix uteri; N92.6 Irregular menstruation, unspecified; Z98.51 Tubal ligation status
CPT/HCPCS: 76830; 76856

== ENCOUNTER → 2022-12-14 13:09 | Outpatient (BNVA) | payer OTHER, SELFPAY | PROVIDERS: PCP Internal Medicine; Visit Provider Advanced Practice Midwife ==

== ENCOUNTER 2022-12-25 16:59 | Emergency (ER) | payer OTHER, SELFPAY ==
[2022-12-25 17:07] VITALS: BP 136/84; PULSE 103; RESP 20; TEMP 36.6; O2SAT 99; BMI 32.6
--- NOTE | 2022-12-25 17:08 | ED_ITS ---
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 Related Data Home Medications Medication Instructions Recorded Confirmed No Known Home Meds 12/14/22 12/14/22 Allergies Allergy/AdvReac Type Severity Reaction Status Date / Time No Known Allergies Allergy Verified 12/14/22 13:10 Review of Systems Review of Systems: Pertinent positives and negatives as stated in [facility] Past Medical History Source: nursing notes reviewed Medical History TOA (tubo-ovarian abscess) Surgical History History of tubal ligation Family History Family History Father Medical history unknown Mother Diabetes Hypertension Maternal Aunt Breast cancer Social History Social History Household Members: Family Household Members Other:: mother Housing: Apartment Advance Directives: No Advance Directives Information Provided: No service: No Current occupational status: employed Physical Exam ED Vital Signs: Vital Signs - 24 hr 12/25/22 17:07 12/25/22 17:37 Temperature 97.8 F 98.6 F Pulse Rate 103 H 95 Respiratory Rate 20 18 Blood Pressure 136/84 144/92 H Pulse Oximetry 99 98 Oxygen Delivery Method Room Air BMI result Body Mass Index 32.6 VITAL SIGNS: Reviewed. GENERAL: Well developed, well nourished, in no acute distress. HEAD: Normocephalic/atraumatic EYES: PERRLA, EOMI EARS: Ext canals without abnormality NOSE: Nares patent bilateral OROPHARYNX: no oral lesions noted, posterior pharynx clear NECK: Supple, no adenopathy LUNGS: Normal breath sounds. No adventitious sounds or accessory muscle use. SpO2<98> CARDIOVASCULAR: Regular rate and rhythm without noted murmurs ABDOMEN: Soft, non-tender, non-distended with bowel sounds. BACK: No midline vertebral tenderness or step-offs. MUSCULOSKELETAL: No tenderness, deformities, or effusions noted on gross inspection. EXTREMITIES: No cyanosis, clubbing or edema. SKIN: Inspection of the skin reveals no rashes NEUROLOGIC: Alert and oriented x 4. Strength and sensation to light touch were grossly intact x 4. Course Course Course Narrative: This is an RME: Additional HPI, ROS, PE not included below will be deferred to primary provider. 32 yo f presents w/ L lower lumbar back pain atraumatic. No red flag sx. Ambulatory into triage Meds ordered Medical Decision Making Medical Decision Making MDM Narrative: This is a 32-year-old female with history and clinical presentation consistent with lower back strain, I have no clinical suspicion for abscess/diskitis/cauda equina/renal colic/pyelonephritis/UTI. Patient was treated with combination analgesics to include a lidocaine patch and discharged home in stable condition. Differential Diagnosis Please see the discussion above Discharge Plan Discharge Clinical Impression: Lumbar strain, Back pain Patient Disposition: Home, Self-Care Instructions: Low Back Strain (ED), Back Pain (ED), Lower Back Exercises (ED) Additional Instructions: 1. Tylenol 1000 mg, por v?a oral, cada 6 horas seg?n sea necesario para cont rolar el dolor. No exceda los 4000 mg dentro de las 24 horas. 2. Parche de lidoca?na, aplique en el ?sumit de m?xima sensibilidad maddy se indica en el empaque exterior. 3. Ibuprofeno 400 mg, por v?a oral con leche o comida, cada 6 horas seg?n sea necesario para controlar el dolor. T?ayon junto con Tylenol para un mayor alivio de los s?ntomas. Regrese a la kevin de emergencias si los s?ntomas empeoran. 1. Tylenol 1000 mg, orally, every 6 hours as needed for pain control. Do not exceed 4000 mg within 24 hours. 2. Lidocaine patch, apply to area of maximal tenderness as directed on the outside packaging. 3. Ibuprofen 400 mg, orally with milk or food, every 6 hours as needed for pain control. Please take this together with Tylenol for increased symptom relief. Return to the ER for any worsening symptoms. Prescriptions: No Action No Known Home Meds Referrals: Dayan Malave MD [Primary Care Provider] - Stand Alone Forms: Work/School Release Print Language: Paraguayan
[2022-12-25 17:37] VITALS: BP 144/92; PULSE 95; RESP 18; TEMP 37; O2SAT 98
[2022-12-25] MEDS: Acetaminophen 325 MG TABLET 975 MG PO (18:24)
[2022-12-25] MEDS: Lidocaine 4 % Patch ADH..PATCH 1 PATCH TRANSDERMA (18:25)
[2022-12-25] MEDS: Ketorolac Tromethamine 15 MG/ML VIAL 30 MG IM (18:26)
== END 2022-12-25 18:34 | disposition home or self-care (01) ==
PROVIDERS: Emergency Provider Student in an Organized Health Care Education/Training Program; PCP Internal Medicine
DX: S39.012A Strain of muscle, fascia and tendon of lower back, initial encounter (principal); X50.0XXA Overexertion from strenuous movement or load, initial encounter; Y93.89 Activity, other specified; Y92.59 Other trade areas as the place of occurrence of the external cause; Y99.0 Civilian activity done for income or pay
CPT/HCPCS: 96372; 99283; 99284; J1885

== ENCOUNTER 2023-05-26 13:14 | Outpatient (REF) | payer MEDICAID, SELFPAY ==
[2023-05-26 14:44] LABS: Hematocrit 40.1 % (37.0-47.0); Mean Corpuscular HGB Conc 32.4 g/dl (31.0-35.0); Mean Corpuscular Hemoglobin 26.7 pg (27.0-33.0); Mean Corpuscular Volume 82.5 fL (80.0-98.0); Mean Platelet Volume 10.9 fL (9.4-12.3); Platelet Count 411 X10*3/uL (160-400); Red Blood Count 4.86 X10*6/uL (4.20-5.50); Red Cell Distribution Width 13.6 % (11.0-16.0); White Blood Count 9.8 X10*3/uL (4.8-10.8)
[2023-05-26 15:37] LABS: HCG Quantitative < 2 mIU/mL; TSH reflex Free T4 1.98 uIU/mL (0.32-4.0)
[2023-05-27 05:54] LABS: Prolactin 8.2 ng/mL
== END 2023-05-26 13:15 | disposition home or self-care (01) ==
LOC: HO.LAB 13:14
PROVIDERS: PCP Internal Medicine; Visit Provider Obstetrics & Gynecology
DX: N93.9 Abnormal uterine and vaginal bleeding, unspecified (principal); N88.9 Noninflammatory disorder of cervix uteri, unspecified
CPT/HCPCS: 36415; 84146; 84443; 84702; 85027; 99212

== ENCOUNTER 2023-05-26 13:14 | Outpatient (AMB) | payer SELFPAY ==
[2023-05-26 13:27] VITALS: BP 130/80; BMI 32.6
--- NOTE | 2023-05-26 13:27 | MHC.OFFVIS ---
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 The patient has been experiencing irregular menstrual cycles over the last few months. A pelvic ultrasound done in 12/18 showed the following: IMPRESSION: There is a persistent abnormality of the cervix. This manifests as anechoic and linear septated components as well as some mucosal cystic components. The appearance 11/17/20 was more solid-appearing. Correlate with any biopsy results or visual inspection. If no intervention is undertaken continued imaging follow-up necessary EMB done in 12/18, the pathology results showed the following: Chronic endometritis; background disordered proliferative endometrium with breakdown. - Abundant mucoinflammatory material. - No atypia identified Last co testing in 10/17 was negative GC/chlamydia with BV panel were all negative in 12/18 [facility] Medical History TOA (tubo-ovarian abscess) Surgical History History of tubal ligation Family History Father Medical history unknown Mother Diabetes Hypertension Maternal Aunt Breast cancer Social History Household Members: Family Household Members Other:: mother Housing: Apartment Patient : No service: No Current occupational status: employed Female Reproductive History Menstrual Age of Menarche: 11 Date of last menstrual period: 04/25/20 control method: permanent sterilization Total pregnancies: 2 Full term: 2 Date of last pap smear: 10/17/21 (negative) Review of Systems Const All systems reviewed & are unremarkable except as noted in HPI and below Card Reports as per HPI and Reports no additional complaints Resp Reports as per HPI and Reports no additional complaints GI Reports as per HPI and Reports no additional complaints Reports as per HPI Physical Exam Vital Signs: Last Vital Signs BP 130/80 05/26/23 13:27 BMI result Body Mass Index 32.6 Const General: cooperative, healthy appearing and comfortable Chest Chest palpation & inspection: normal inspection of the chest and normal palpation of entire chest wall Breast/axilla inspection: normal inspection of the breasts and normal inspection of the axillae Breast/axilla palpation: normal palpation of the breasts, normal palpation of the axillae and no axillary lymphadenopathy Resp Effort & Inspection: normal respiratory effort Auscultation: clear to auscultation bilaterally Percussion: percussion normal Cardio Palpation: normal PMI Rate: regular rate Rhythm: regular rhythm Heart sounds: no murmurs and no rubs Peripheral pulses: Peripheral pulses 2+ throughout GI Inspection: Yes normal to inspection Palpation (GI): Soft to palpation, nontender, no guarding, not rigid and No hepatosplenomegaly present Percussion: Yes normal to percussion Auscultation: normal bowel sounds Rectal Exam - Female: deferred General: Yes no CVA tenderness External Female Exam: normal external appearance and normal appearance of the urethra Speculum Exam - Vagina: normal appearance of the vagina, normal palpation, no lesions and no masses Speculum Exam - Cervix: normal appearance of the cervix, normal palpation, no lesions, no masses and nontender Bimanual exam- vagina & uterus: normal bimanual exam, normal palpation, uterine size normal, normal palpation, uterine shape normal, No Cervical tenderness present and non-tender Bimanual Exam- Adnexa, other: normal adnexae Back/Spine/Pelvis Back: no CVA tenderness Assessment & Plan Assessment & Plan (1) Abnormal uterine bleeding (AUB): Code(s): N93.9 - Abnormal uterine and vaginal bleeding, unspecified Plan: Co testing not indicated this year, GC and chlamydia done recently and within normal, will order CBC, TSH, prolactin, HCG, and pelvic ultrasound done in 12/18. Discussed with the patient the different causes of abnormal bleeding including thyroid disorders, uterine and ovarian pathology, endometrial hyperplasia, carcinoma and other potential causes. Discussed with the patient the work up including CBC (to r/o anemia), TSH, prolactin , hCG, endometrial biopsy was done in 12/18 and it ruled out endometrial pathology. All questions answered and the patient verbalized understanding. Instructed the patient to schedule a follow-up appointment fin 2 weeks. (2) Abnormality of cervix: Comment: By ultrasound Code(s): N88.9 - Noninflammatory disorder of cervix uteri, unspecified Plan: Discussed with the patient the abnormal finding on ultrasound, since on pelvic exam the cervix looks normal, recommended hysteroscopy D&C possible polypectomy/myomectomy rule out endocervical pathology. Discussed with the patient the procedure , all benefits and risks including but not limited to inability to complete the procedure , bleeding, infection, possible need for blood transfusion with all its risk ( HIV,syphilis, Hepatitis, anaphylaxis shock, others..), injury to bladder, rectum, possible need for laparoscopy/laparotomy or hysterectomy. The patient verbalized understanding and signed the consent. Instructions given the patient to schedule a 2 week postoperative appointment Orders: Orders TSH reflex Free T4 Today N93.9 - Abnormal uterine and vaginal bleeding, unspecified HCG Quantitative Today N93.9 - Abnormal uterine and vaginal bleeding, unspecified Complete Blood Count no Diff Today N93.9 - Abnormal uterine and vaginal bleeding, unspecified Prolactin Today N93.9 - Abnormal uterine and vaginal bleeding, unspecified Coding Level of Care Code Est Pt Level 3 (76903) Diagnoses Abnormal uterine bleeding (AUB) N93.9 Abnormality of cervix N88.9
== END 2023-05-26 14:05 | disposition home or self-care (01) ==
LOC: HO.HWS 13:14
PROVIDERS: PCP Internal Medicine; Visit Provider Obstetrics & Gynecology
DX: N93.9 Abnormal uterine and vaginal bleeding, unspecified (principal); N88.9 Noninflammatory disorder of cervix uteri, unspecified
CPT/HCPCS: 99213

== ENCOUNTER 2023-05-28 06:21 | Day surgery (SDC) | payer MEDICAID, SELFPAY ==
--- NOTE | 2023-05-27 14:00 | HO.ANESPROP2 ---
Documented by User: Kaitlin Crabtree NP 05/27/23 14:00 HPI - Anesthesia Eval Consult details Narrative: 32yo F for D&C Hysteroscopy,poss myomectomy,poss polypectomy, PMFSH Active Problems Active Problems: All Active Problems (Updated 05/26/23 @ 13:56 by Sonu Menendez MD) Abnormality of cervix (Acute) Abnormal uterine bleeding (AUB) (Acute) Right sided abdominal pain (Acute) Polyp at cervical os (Acute) History of tubal ligation (Acute) Cervical cancer screening (Acute) Abnormal ultrasound (Acute) Menstrual periods irregular (Acute) TOA (tubo-ovarian abscess) (Acute) Past Medical History Medical History TOA (tubo-ovarian abscess) Family History Family History Father Medical history unknown Mother Diabetes Hypertension Maternal Aunt Breast cancer Surgical History Surgical History History of tubal ligation Social History Social History Household Members: Family Household Members Other:: mother Housing: Apartment Use of substances other than those prescribed or required for medical reasons: No Are you DNR?: No Advance Directives: No Advance Directives Information Provided: Yes service: No Current occupational status: employed Meds Allergies Allergy/AdvReac Type Severity Reaction Status Date / Time No Known Allergies Allergy Verified 05/26/23 13:28 Home Medications Medication Instructions Recorded Confirmed Last Taken Type No Known Home Meds 12/14/22 12/14/22 Unknown History Exam Pertinent Lab Results Pertinent Lab Results: Laboratory Tests 05/26/23 14:19 WBC 9.8 Hgb 13.0 Hct 40.1 Plt Count 411 H Assessment and Plan Assessment Anesthesia Assessment: Chart Reviewed Documented by User: John Webster MD 05/28/23 07:27 PMFSH Past Medical History Medical History TOA (tubo-ovarian abscess) Family History Family History Father Medical history unknown Mother Diabetes Hypertension Maternal Aunt Breast cancer Family history of problems with anesthesia: No Surgical History Surgical History History of tubal ligation History of Problems with Anesthesia: No Social History Social History Household Members: Family Household Members Other:: mother Housing: Apartment Use of substances other than those prescribed or required for medical reasons: No Are you DNR?: No Advance Directives: No Advance Directives Information Provided: Yes service: No Current occupational status: employed Meds Allergies Allergy/AdvReac Type Severity Reaction Status Date / Time No Known Allergies Allergy Verified 05/26/23 13:28 Home Medications Medication Instructions Recorded Confirmed Last Taken Type No Known Home Meds 12/14/22 12/14/22 Unknown History Exam Airway Mallampati Class: II TM Dist: <=3cm Neck ROM: Full Heart: ok Lungs: ok Assessment and Plan Assessment Anesthesia Assessment: Anesthesia Plan Discussed Final Anesthetic Review Family History of Problems with Anesthesia: No History of Problems with Anesthesia: No NPO: Yes ASA Class: II Final Preanesthetic Review: No Changes in Pt Med Stat, Meds/Allgs Chart Reviewed, Consent Obtained/Reviewed and Anes Risks/Benef Reviewed Patient Risk: Intermediate Procedure Risk: Low Anesthetic Plan Anesthetic Plan: GA and Agree w/ Assess. and Plan Disposition: Standard PACU
[2023-05-28] VITALS (7 sets, daily range): BP systolic 115–143; BP diastolic 70–95; PULSE 71–94; RESP 16–18; TEMP 36.4–36.7; O2SAT 96–99; BMI 35.9
[2023-05-28] MEDS: Lactated Ringers 1,000 ML 100 ML IVCONT (07:04)
--- NOTE | 2023-05-28 07:37 | MHC.SHP ---
Pre-Procedural Eval Section A Date of Service: 05/28/23 The patient is an INPATIENT: No Changes since office visit: No Cold of Flu in the past 2 weeks, No New Medical Problems, No Changes in Medication and No Patient answered all questions The History & Physical has been completed within 30 days and I have reviewed it.: Yes Section B Chief Complaint: Abnormal uterine and vaginal bleeding, unspecified Allergies: Allergies Allergy/AdvReac Type Severity Reaction Status Date / Time No Known Allergies Allergy Verified 05/26/23 13:28 Plan Diagnosis/Plan: Unchanged I have reviewed the history and physical and performed a pertinent physical examination on my patient. No changes have occurred unless specified. Time Spent With Patient Time: Total time managing care of this patient today ____ minutes.
--- NOTE | 2023-05-28 07:39 | PC.NURSE ---
MD aware no urine obtained due to pt having QUANT done 05/26, neg.
--- NOTE | 2023-05-28 08:10 | P.BOP_ITS ---
Brief Operative Note Date of Service: 05/28/23 Pre-op diagnosis: Abnormal cervix by ultrasound Post-op diagnosis: same ( endocervical cyst / purulent accumulation) Procedure: Hysteroscopy D&C GC/CT, BV panel and culture of the purulent discharge Surgeon: Sonu Menendez MD Anesthesia: GLMA Was an Certified Ophthalmic Surgical Assistant used for this Procedure?: No Estimated blood loss (mL): 0 Pathology: other (Endometrial Scrapping. Polyp) Condition: stable Disposition: PACU
--- NOTE | 2023-05-28 08:11 | W.PM.OPN ---
Operative Note Operative Note Date of Service: 05/28/23 Narrative: Preop Diagnosis: Abnormal cervix by ultrasound Operation: Diagnostic Hysteroscopy, Dilataion & Curettage Post Op Diagnosis: Endocervical cyst /purulent collection.Normal endometrial QBL: Minimal Anesthesia: GLMA Surgeon: Sonu Menendez MD Utility Systems Repairer Operator: None Complication: None Pathology: Endometrial Scrapings , GC/ Chlamydia, BV panel, culture of the endocervical fluid collection Procedure: The patient was put in the dorsal lithotomy position, scrubbed, and draped in the usual manner. A sterile speculum was inserted in the patient's vagina. The anterior lip of the cervix was grasped with a single tooth tenaculum. The cervix was dilated up to 5 mm, purulent discharge came out of the cervix, GC/CT collected, BV panel taken, and general culture taken from the fluid coming out of this the endocervix.Then the scope was inserted in the patient's uterus. Inspection revealed normal endocervical & endometrial cavity with no evidence of remaining pathology. The scope was taken out of the uterine cavity , then sharp curetting was carried on with no complications. At the end of the procedure, all instruments were taken out of the patient uterine and vaginal cavity. The single tooth tenaculum was removed and homeostasis was assured using pressure. The patient tolerated the procedure well and was transferred to the PACU in a stable condition. Will give the patient prophylactic ceftriaxone 500 mg IM , 2 g Flagyl p.o. and start the patient on doxycycline 100 mg p.o. b.i.d. pending cultures results
[2023-05-28] MEDS: oxyCODONE HCl Immed Release 5 MG TABLET PO (08:27)
[2023-05-28] MEDS: Acetaminophen 325 MG TABLET 650 MG PO (08:27)
[2023-05-28] MEDS: metroNIDAZOLE 500 MG TABLET PO (08:39)
[2023-05-28] MEDS: Doxycycline Monohydrate 100 MG CAPSULE PO (08:39)
[2023-05-28] MEDS: cefTRIAXone sodium 500 MG VIAL IM (08:42)
[2023-05-28 09:56] LABS: CT PCR NOT DETECTED (Not Detect.); NG PCR NOT DETECTED (Not Detect.)
[2023-05-28 11:02] LABS: BV Int Neg Control Negative (Negative); BV Int Pos Control Positive (Positive)
== END 2023-05-28 09:31 | disposition home or self-care (01) ==
PROVIDERS: PCP Internal Medicine; Visit Provider Obstetrics & Gynecology
PROC: 0UDB8ZZ Extraction of Endometrium, Via Natural or Artificial Opening Endoscopic (ICD-10-PCS; CPT 58558; principal; 2023-05-28 07:30)
DX: N93.9 Abnormal uterine and vaginal bleeding, unspecified (principal); N88.8 Other specified noninflammatory disorders of cervix uteri
CPT/HCPCS: 58558; 0353U; 87070; 87205; 87480; 87510; 87660; 88305; J0696; J1885; J2405; J2704; J3010

== ENCOUNTER → 2023-05-28 06:21 | Outpatient (BNV) | payer SELFPAY | PROVIDERS: PCP Internal Medicine; Visit Provider Obstetrics & Gynecology | DX: N93.9 Abnormal uterine and vaginal bleeding, unspecified (principal) | CPT/HCPCS: 58558 ==

== ENCOUNTER 2023-06-16 08:39 | Outpatient (AMB) | payer SELFPAY ==
[2023-06-16 08:43] VITALS: BP 124/80; BMI 35.9
--- NOTE | 2023-06-16 08:43 | A.OFFVIS_ITS ---
Intake Vital Signs 06/16/23 08:43 Height 5 ft 4 in Weight 209 lb BMI 35.9 BP 124/80 Intake Visit Reasons: post op Shroud Line Tier Required: Yes Shroud Line Tier Language: Mining Consultant Name: Lotus Paz Allergies No Known Allergies Allergy (Verified 06/16/23 08:44) Is last menstrual period known: No Post menopausal: No HPI HPI Comments History of Present Illness Details The patient is presenting post hysteroscopy D&C no complaints minimal vaginal bleeding no feverishness chills or abdominal pain. The pathology showed the following: Proliferative endometrium with stromal breakdown; negative for atypia, hyperplasia or malignancy Endocervical discharge GC/chlamydia with BV panel and Trichomonas all negative The following workup was done so far: Pelvic ultrasound showed the following: IMPRESSION: There is a persistent abnormality of the cervix. This manifests as anechoic and linear septated components as well as some mucosal cystic components. The appearance 11/17/20 was more solid-appearing. Correlate with any biopsy results or visual inspection. If no intervention is undertaken continued imaging follow-up necessary EMB done in 12/18, the pathology results showed the following: Chronic endometritis; background disordered proliferative endometrium with breakdown. - Abundant mucoinflammatory material. - No atypia identified Last co testing in 10/17 was negative GC/chlamydia with BV panel were all negative in 12/18 COUNTS INCLUDE 234 BEDS AT THE [facility] Medical History TOA (tubo-ovarian abscess) Surgical History Hx of dilation and curettage History of tubal ligation Family History Father Medical history unknown Mother Diabetes Hypertension Maternal Aunt Breast cancer Social History Household Members: Family Household Members Other:: mother Housing: Apartment service: No Current occupational status: employed Female Reproductive History Menstrual Age of Menarche: 11 control method: permanent sterilization Review of Systems Const All systems reviewed & are unremarkable except as noted in HPI and below Reports as per HPI and Reports no additional complaints GI Reports no additional complaints Reports no additional complaints Physical Exam Vital Signs: Last Vital Signs BP 124/80 06/16/23 08:43 BMI result Body Mass Index 35.9 Assessment & Plan Assessment & Plan (1) Abnormality of cervix: Comment: By ultrasound Code(s): N88.9 - Noninflammatory disorder of cervix uteri, unspecified Plan: Discussed with patient the intraoperative finding showing endocervical cyst that was incised cultures taken for GC/Chlamydia, BV panel and Trichomonas all were negative. (2) Abnormal uterine bleeding (AUB): Code(s): N93.9 - Abnormal uterine and vaginal bleeding, unspecified Plan: Discussed with the patient the results of the work up done and options of treatment including but not limited to BCP's, cyclic Progesterone, Mirena IUD, endometrial ablation and hysterectomy. All pros, cons, risks and benefits of each option were discussed with the patient and the patient decided to go ahead with cyclic Provera, so a more detailed discussion re: Progesterone treatment including mechanism of action, benefits (regular menses, endometrial protection form unopposed estrogen and reduction in the risk of endometrial hyperplasia and/or cancer ...), risks (Thrombosis, mood changes, weight gain, breast soreness, ? increased breast ca, others). Instructions were given to take 10 mg of Provera daily starting day 15-24 cyclically and to schedule a 3 months follow-up appointment; the patient verbalized understanding and agreed with the plan. Medications: New medroxyprogesterone (Provera) start Provera 1 tablet daily from day 15-24 cyclically every months, day 1 being 1st day of menses 10 mg PO DAILY 30 tabs 0RF 10 days Coding Level of Care Code Est Pt Level 3 (95023) Diagnoses Abnormality of cervix N88.9 Abnormal uterine bleeding (AUB) N93.9
== END 2023-06-16 09:06 | disposition home or self-care (01) ==
PROVIDERS: PCP Internal Medicine; Visit Provider Obstetrics & Gynecology
DX: N88.9 Noninflammatory disorder of cervix uteri, unspecified (principal); N93.9 Abnormal uterine and vaginal bleeding, unspecified
CPT/HCPCS: 99213

== ENCOUNTER → 2023-06-16 08:39 | Outpatient (BNVA) | payer MEDICAID, SELFPAY | PROVIDERS: PCP Internal Medicine; Visit Provider Obstetrics & Gynecology | DX: N88.9 Noninflammatory disorder of cervix uteri, unspecified (principal); N93.9 Abnormal uterine and vaginal bleeding, unspecified | CPT/HCPCS: 99212 ==

== ENCOUNTER 2023-09-16 09:03 | Outpatient (AMB) | payer OTHER, SELFPAY ==
[2023-09-16 09:18] VITALS: BP 116/70; BMI 36.6
--- NOTE | 2023-09-16 09:18 | MHC.OFFVIS ---
Intake Vital Signs 09/16/23 09:18 Height 5 ft 4 in Weight 213 lb BMI 36.6 BP 116/70 Blood Pressure Location Rt brachial Position Sitting Intake Visit Reasons: medication follow up Structural Draftsman Required: Yes Structural Draftsman Language: Installer Molding And Trim Name: NATHAN Rudolph Information Interpreted: non-clinical & clinical Brine Tank Separator Operator: Brine Tank Separator Operator Present Accompanied by: Spouse Allergies No Known Allergies Allergy (Verified 09/16/23 09:19) HPI HPI Comments History of Present Illness Details Presenting for follow-up Provera the patient has been taking Provera 10 mg p.o. q.d. day 15-24 and her menstrual cycles are regular. No complaint, the patient is interested in a prescription refill [facility] Medical History TOA (tubo-ovarian abscess) Surgical History Hx of dilation and curettage History of tubal ligation Family History Father Medical history unknown Mother Diabetes Hypertension Maternal Aunt Breast cancer Social History Household Members: Family Household Members Other:: mother Housing: Apartment service: No Current occupational status: employed Female Reproductive History Menstrual Age of Menarche: 11 Review of Systems Const All systems reviewed & are unremarkable except as noted in HPI and below Reports as per HPI and Reports no additional complaints GI Reports no additional complaints Reports no additional complaints Assessment & Plan Assessment & Plan (1) Abnormal uterine bleeding (AUB): Code(s): N93.9 - Abnormal uterine and vaginal bleeding, unspecified Plan: Provera 10 mg p.o. q.d. day 15-24 refilled for a year. Instructions given the patient to schedule annual exam appointment. All questions answered, the patient verbalized understanding. Medications: Refilled medroxyprogesterone (Provera) start Provera 1 tablet daily from day 15-24 cyclically every months, day 1 being 1st day of menses 10 mg PO DAILY 10 days 30 tabs 3RF Coding Level of Care Code Est Pt Level 3 (79283) Diagnoses Abnormal uterine bleeding (AUB) N93.9
== END 2023-09-16 11:37 | disposition home or self-care (01) ==
LOC: HO.HWS 09:03
PROVIDERS: PCP Internal Medicine; Visit Provider Obstetrics & Gynecology
DX: N93.9 Abnormal uterine and vaginal bleeding, unspecified (principal)
CPT/HCPCS: 99213

== ENCOUNTER → 2023-09-16 09:03 | Outpatient (BNVA) | payer OTHER, SELFPAY | PROVIDERS: PCP Internal Medicine; Visit Provider Obstetrics & Gynecology | DX: N93.9 Abnormal uterine and vaginal bleeding, unspecified (principal); Z79.899 Other long term (current) drug therapy | CPT/HCPCS: 99212 ==

== ENCOUNTER 2025-03-12 15:09 | Outpatient (AMB) | payer OTHER, SELFPAY ==
--- NOTE | 2025-03-12 15:15 | A.OFFVIS_ITS ---
Intake Visit Reasons: pelvic pain/AUB Educational Assistant Required: Yes Educational Assistant Language: Wardrobe Assistant Services: Educational Assistant Present (in person) Educational Assistant Name: NATHAN Rudolph Information Interpreted: non-clinical & clinical Membership Sales Representative: Membership Sales Representative Present (NATHAN Rudolph ) Accompanied by: Self / Same As Patient Allergies No Known Allergies Allergy (Verified 09/16/23 09:19) HPI Comments Details: Presenting complaining of urinary frequency, dysuria PFSH Medical History TOA (tubo-ovarian abscess) Surgical History Hx of dilation and curettage History of tubal ligation Family History Father Medical history unknown Mother Diabetes Hypertension Maternal Aunt Breast cancer Social History Household Members: Family Household Members Other:: mother Housing: Apartment service: No Current occupational status: employed Female Reproductive History Menstrual Age of Menarche: 11 Review of Systems Const All systems reviewed & are unremarkable except as noted in HPI and below Physical Exam General: Yes no CVA tenderness External Female Exam: normal external appearance and normal appearance of the urethra Speculum Exam - Vagina: normal appearance of the vagina, normal palpation, no lesions and no masses Speculum Exam - Cervix: normal appearance of the cervix, normal palpation, no lesions, no masses and nontender Bimanual exam- vagina & uterus: normal bimanual exam, normal palpation, uterine size normal, normal palpation, uterine shape normal, No Cervical tenderness present and non-tender Bimanual Exam- Adnexa, other: normal adnexae Back/Spine/Pelvis Back: no CVA tenderness Assessment & Plan Assessment & Plan (1) UTI (urinary tract infection): Code(s): N39.0 - Urinary tract infection, site not specified Category: Medical Plan: Urine dip showed microscopic hematuria with leukocytes, urine culture sent, Macrobid 100 mg p.o. b.i.d. sent to the patient's pharmacy for 5 days. Instructions given the patient to call if symptoms not improve within 48 hours, in case of fever above 100.4, nausea or vomiting or flank pain. All questions answered, the patient verbalized understanding (2) Microscopic hematuria: Code(s): R31.29 - Other microscopic hematuria Category: Medical Plan: Urine dip showed microscopic hematuria, urine culture sent. Will repeat urine dip in 2 weeks. Discussed with the patient the possible causes of microscopic hematuria including but not limited to: interstitial cystitis, polyps, stones, masses, urethral inflammatory processes and others. If Urine Culture is negati ve and repeat urine dip in 2 weeks shows persistent microscopic hematuria, will proceed with CT abdomen/pelvis and urology referral. Instructions given the patient to schedule a 2 week urine dip follow-up appointment. All questions answered and the patient verbalized understanding. Medications: New nitrofurantoin monohyd/m-cryst 100 mg (Macrobid) 100 mg PO BID 10 caps 0RF 5 days Coding Level of Care Code Est Pt Level 3 (72817) Diagnoses UTI (urinary tract infection) N39.0 Microscopic hematuria R31.29
--- OUTSIDE RECORDS SUMMARY | 2025-03-12 20:34 | XMS_ITS | Encounter Summary ---
Author Organization [employer] Address [address] [facility] 7 [place] [address] Care Team Providers Care Construction Project Engineer Name Role Phone Unavailable Primary Care Provider Unavailabl e Encounter Details Date Type Department Care Team (Latest Contact Info) Description 08/31/2018 Abstract [facility] Dental, Provider, DDS Social History Tobacco Use Types Packs/Day Years Used Date Smoking Tobacco: Never Assessed Comments Unknown Sex and Gender Information Value Date Recorded Sex Assigned at Female 04/27/2022 10:34 AM EDT Legal Sex Female 10:34 AM EDT Gender Identity Female 06/03/2022 2:54 PM EST Sexual Orientation Straight 06/30/2022 8: 48 AM EST documented as of this encounter Plan of Treatment Not on file documented as of this encounter Visit Diagnoses Not on filedocumented in this encounter
--- OUTSIDE RECORDS SUMMARY | 2025-03-12 20:34 | XMS_ITS | Encounter Summary ---
Author Organization [employer] Address [address] [facility] [address] [place] [address] Care Team Providers Care Ambulatory Technologist Name Role Phone Unavailable Primary Care Provider Unavailabl e Encounter Details Date Type Department Care Team (Late st Contact Info) Description 06/12/2022 Abstract [facility]ULT D[facility] [address] [place] [address] Rhys Diaz DDS [address] [place] [address] Social History Tobacco Use Types Packs/Day Years [...]
--- OUTSIDE RECORDS SUMMARY | 2025-03-12 20:34 | XMS_ITS | Clinical Summary ---
Author Organization [facility] Address [address] [place] [address] Care Team Providers Care Magazine Designer Name Role Phone Unavailable Primary Care Provider Unavailabl e Social History Tobacco Use Types Packs/Day Years Used Date Smoking Tobacco: Never Assessed Comments Unknown Sex and Gender Information Value Date Recorded Sex Assigned at Not on file Legal Sex Female 3:24 AM EST Gender Identity Not on file Sexual Orientation Not on file Plan of Treatment Health Maintenance Due Date Last Done Comments DTaP,Tdap,and Td Vaccines (1 - Tdap) 2008 Hepatitis B Vaccines (1 of 3 - 19+ 3-dose series) 2008 Cervical Cancer Screening: P ap Smear 2010 HIV Screening 05/31/2022 Hepatitis C Screening 05/31/2022 Social Influencers of Health Screening 05/31/2022 Depression Screening 06/28/2024 COVID-19 Vaccine (2023-2 5 season) 2025 Influenza Vaccine (#1) 2025 HIB Vaccines Aged Out No longer eligi ble based on patient's age to complete this topic HPV Vaccines Aged Out No longer eligi ble based on patient's age to complete this topic Hepatitis A Vaccines Aged Out No long er eligible based on patient's age to complete this topic IPV Vaccines Aged Out No longer eligi ble based on patient's age to complete this topic MMR Vaccines Aged Out No longer eligi ble based on patient's age to complete this topic Meningococcal ACWY Vaccine Aged Out N o longer eligible based on patient's age to complete this topic Meningococcal B Vaccine Aged Out No l onger eligible based on patient's age to complete this topic Pneumococcal Vaccine: Pediat rics (0 to 5 Years) and At-Risk Patients (6 to 49 Years) Aged Out No longer eligible b ased on patient's age to complete this topic RSV Immunization Patients Un meenu 20 months Aged Out No longer eligible b ased on patient's age to complete this topic Varicella Vaccines Aged Out No longer eligible based on patient's age to complete this topic
--- OUTSIDE RECORDS SUMMARY | 2025-03-12 20:34 | XMS_ITS | Encounter Summary ---
Author Organization [employer] Address [address] [place] [address] 7 [place] [address] Care Team Providers Care Land Lease Information Clerk Name Role Phone Unavailable Primary Care Provider Unavailabl e Reason for Visit * Reason Onset Date Comments medication 09/23/2022 Encounter Details Date Type Department Care Team ([facility] st Contact Info) Description 09/23/2022 Telephone [facility] ADULT DENTAL [address], [place] [phone] Rhys Diaz DDS [address], [place] [phone] medication Social History Tobacco Use Types Packs/Day Years Used Date Smoking Tobacco: Never Passive Smoke Exposure: Never Smokeless Tobacco: Never Alcohol Use Standard Drinks/Week Comments Defer 0 (1 standard drink = 0.6 oz pur e alcohol) Comments Unknown Sex and Gender Information Value Date Recorded Sex Assigned at Female 04/27/2022 10:34 AM EDT Legal Sex Female 10:34 AM EDT Gender Identity Female 06/03/2022 2:54 PM EST Sexual Orientation Straight 06/30/2022 8: 48 AM EST COVID-19 Exposure Response Date Recorded In the last 10 days, have yo u been in contact with someone who was confirmed or suspected to have Coronavirus/COVID-19? No / Unsure 09/07/2022 2:02 PM EDT documented as of this encounter Miscellaneous Notes * Telephone Encounter - Johana Howard - 10/02/2022 10:39 AM EDT Patient was here yesterday 10/[address] Edward. Alena is not here today and the script that he was to send to pharmacy was not sent and patient is in pain. Can you help with sending script? * Telephone Encounter - Johana Howard - 09/23/2022 2:22 PM EDT Patient called in stating that she was told she was going to get an appt for the or for ext but has not heard back for scheduling DR documented in this encounter Plan of Treatment Not on file documented as of this encounter Visit Diagnoses Not on filedocumented in this encounter
--- OUTSIDE RECORDS SUMMARY | 2025-03-12 20:34 | XMS_ITS | Clinical Summary ---
Author Organization [employer] Address [address] [place] [address] [address] [place] [address] Care Team Providers Care Stump Shooter Name Role Phone Unavailable Primary Care Provider Unavailabl e Allergies No known active allergies Medications No known medications Social History Tobacco Use Types Packs/Day Years Used Date Smoking Tobacco: Never Passive Smoke Exposure: Never Smokeless Tobacco: Never Tobacco Cessation:Counseling Given: Not Answered Alcohol Use Standard Drinks/Week Comments Defer 0 (1 standard drink = 0.6 oz pur e alcohol) Comments Unknown Sex and Gender Information Value Date Recorded Sex Assigned at Female 04/27/2022 10:34 AM EDT Legal Sex Female 10:34 AM EDT Gender Identity Female 06/03/2022 2:54 PM EST Sexual Orientation Straight 06/30/2022 8: 48 AM EST Last Filed Vital Signs Vital Sign Reading Time Taken Comments Blood Pressure 160/100 10/01/2022 1:49 PM EDT Pulse 68 06/23/2022 2:09 PM EST Temperature - - Respiratory Rate - - Oxygen Saturation - - Inhaled Oxygen Concentration - - Weight - - Height - - Body Mass Index - - Plan of Treatment Health Maintenance Due Date Last Done Comments Dental Oral Exam 1989 Dental Prophylaxis 1989 Dental X-Ray: Bitewings 1989 Depression Screening 1989 HIV Screening 1989 SDOH Screening 1989 Disability Screening 1989 Alcohol/Substance Use Screening 2001 Family Planning (PISQ) 2004 HPV Vaccines (1 - 3-dose series) 2004 Hepatitis C Screening 12/09/2007 DTaP/Tdap/Td Vaccines (1 - Tdap) 2008 Hepatitis B Vaccines (1 of 3 - 19+ 3-dose series) 2008 Pap Smear 2010 Cervical Cancer Screening 12/09/2019 HPV/Cotest 12/09/2019 Tobacco Screening 10/02/2023 10/01/2022 COVID-19 Vaccine (1 - 2023-2 5 season) 2025 Influenza Vaccine (#1) 2025 Dental X-Ray: Full Mouth 09/08/2025 09/07/2022 Zoster Vaccines (1 of 2) 12/09/2039 RSV Patients and Pa tients Aged 60 years or older (1 - 1-dose 75+ series) 2064 HIB Vaccines Aged Out No longer eligi [...] patient's age to complete this topic Meningococcal Vaccine Aged Out No lanny jonh eligible based on patient's age to complete this topic Pneumococcal Vaccine: Pediat rics (0 to 5 Years) and At-Risk Patients (6 to 49) Years Aged Out No longer eligi ble based on patient's age to complete this topic RSV under 20 months Aged Out No longe r eligible based on patient's age to complete this topic Rotavirus Vaccines Aged Out No longer eligible based on patient's age to complete this topic Procedures Procedure Name Priority Date/Time Associated Diagnosis Comments PANORAMIC RADIOGRAPHIC IMAGE Routine 09/07/2022 2:00 PM EDT from Last 3 Months or Most Recently Relevant to Health Maintenance Insurance [place] ST[place] ADULT
== END 2025-03-12 15:34 | disposition home or self-care (01) ==
PROVIDERS: PCP Internal Medicine; Visit Provider Obstetrics & Gynecology
DX: N39.0 Urinary tract infection, site not specified (principal); R31.29 Other microscopic hematuria; Z32.02 Encounter for pregnancy test, result negative
CPT/HCPCS: 99213

== ENCOUNTER 2025-03-12 15:09 | Outpatient (REF) | payer OTHER, SELFPAY | END 2025-03-12 15:10 | disposition home or self-care (01) | LOC: HO.LNP 15:09 | PROVIDERS: PCP Internal Medicine; Visit Provider Obstetrics & Gynecology | DX: N39.0 Urinary tract infection, site not specified (principal); R31.29 Other microscopic hematuria; Z32.02 Encounter for pregnancy test, result negative | CPT/HCPCS: 81002; 81025; 87086 ==

== ENCOUNTER 2025-03-18 08:01 | Observation (INO) | payer OTHER, SELFPAY ==
[2025-03-18] VITALS (9 sets, daily range): BP systolic 116–177; BP diastolic 70–96; PULSE 79–94; RESP 12–18; TEMP 36.1–36.9; O2SAT 96–100; BMI 35.2
--- NOTE | ~2025-03-18 | CT_ITS ---
CLINICAL HISTORY: R flank pain s p atbx ? pyelo CT abdomen and pelvis with contrast Comparison: None provided Findings: No consolidation or effusion. Gallstone in a distended gallbladder. Correlate clinically for presence or absence of right upper quadrant pain. Hepatic steatosis. No bowel obstruction, pneumoperitoneum, or pneumatosis. Nonspecific enlarged portacaval node measuring up to 12 mm in short axis may be reactive in nature. Small broad-based uncomplicated fat containing umbilical hernia. No evidence of appendicitis. The bones are intact. IMPRESSION: 1. Gallstone in a distended gallbladder. Correlate clinically for presence or absence of right upper quadrant pain. 2. Hepatic steatosis. 3. No urinary tract stone or hydronephrosis. This document has been electronically signed by: Gabby Huynh MD on 03/18/2025 12:43:16
--- NOTE | 2025-03-18 08:24 | ED.GENADULT ---
HPI - General Adult General Chief complaint: Back Pain/Injury Stated complaint: lower back pain Time Seen by Provider: 03/18/25 08:18 Source: patient Mode of arrival: ambulatory Limitations: no limitations History of Present Illness ED Provider: ERICA Jorgensen HPI narrative: 34-year-old female past medical history significant for tubo-ovarian abscess, microscopic hematuria presenting to the emergency department with complaints of right-sided flank pain/ abd pain that radiates into right buttocks and intermittent discomfort with urination. Patient reports she was seen by OBGYN, on Wednesday they prescribed her a 5 day course of Macrobid which she recently completed. They told her that they thought she had a UTI however despite this medicine patient is still having right-sided flank pain and mild abnormalities with urination. Patient tells me otherwise she feels okay. Denies chest pain, shortness of breath, nausea, vomiting, abdominal pain, headache, vision changes, dizziness and weakness. Related Data Previous Rx's ?Medication ?Instructions ?Recorded medroxyprogesterone 10 mg tablet 10 mg PO DAILY 10 days #30 tabs 10/12/24 (Provera) nitrofurantoin 100 mg PO BID 5 days #10 caps 03/12/25 monohydrate/macrocrystals 100 mg capsule (Macrobid) Allergies Allergy/AdvReac Type Severity Reaction Status Date / Time No Known Allergies Allergy Verified 03/18/25 08:14 Review of Systems Review of Systems: Yes all other systems are reviewed and are negative [facility] Past Medical History Attestation statement: The following information was validated with the patient. Source: old records reviewed and nursing notes reviewed Medical History TOA (tubo-ovarian abscess) Surgical History Hx of dilation and curettage History of tubal ligation Family History Family History Father Medical history unknown Mother Diabetes Hypertension Maternal Aunt Breast cancer Social History Social History Household Members: Family Household Members Other:: mother Housing: Apartment Smoked in Last 30 Days: No Use of substances other than those prescribed or required for medical reasons: No Advance Directives: No Advance Directives Information Provided: Yes Patient : No service: No Current occupational status: employed Physical Exam ED Exam Exam: Appearance: Alert.? Oriented X3.? No acute distress.? Head: Normocephalic, atraumatic, no step-offs or deformities Eyes: Pupils equal, round and reactive to light.? ENT: Pharynx normal.? Neck: Normal inspection.? Neck supple.? CVS: Normal heart rate and rhythm.? Pulses normal.? Respiratory: No respiratory distress.? Breath sounds normal.? Abdomen: Soft and + mild ttp to RUQ .? Skin: Skin warm and dry.? Normal skin color.? Normal skin turgor.? Extremities: No lower extremity edema.? No calf ttp. 5/5 strength to bilateral upper and lower extremities Back: No midline tenderness, no C-spine tenderness, full range of motion,+ Right RVA tenderness Neuro: Oriented X 3.? No motor deficit.? No sensory deficit. CN 2-12 intact Vital Signs: Vital Signs - 24 hr 03/18/25 08:12 03/18/25 10:00 03/18/25 12:00 Temperature 96.9 F 97.1 F 98.1 F Pulse Rate 94 85 81 Respiratory Rate 18 16 16 Blood Pressure 177/85 H 140/90 H 135/93 H Pulse Oximetry 100 100 98 Oxygen Delivery Method Room Air Room Air Room Air 03/18/25 13:20 Temperature Pulse Rate 79 Respiratory Rate 16 Blood Pressure 127/88 Pulse Oximetry 99 Oxygen Delivery Method Room Air BMI result Body Mass Index 35.2 vss Course Reevaluation(s) Reevaluation #1: CBC unremarkable. Chemistry pending. UA with evidence of infection 2+ bacteria and urine RBCs. IV ceftriaxone ordered at this time infection suspected. Imaging pending Time: 09:33 Reevaluation #2: CBC unremarkable. Chemistry no acute findings needing intervention. Normal lactic acid. CT abdomen pelvis gallstones and a distended gallbladder patient does have mild right upper quadrant discomfort. Hepatic steatosis. No urinary tract obstruction or hydronephrosis. She does explain she has intermittent posterior scapula pain when she gets right upper quadrant pain question + intermittently + boas sign. Ran this case by surgery no acute surgical intervention needed at this time. I do plan to admit this patient for UTI not responding to p.o. antibiotics Time: 12:48 Medications Administered Discontinued Medications Generic Name Dose Route Start Last Admin Trade Name Neel PRN Reason Stop Dose Admin Ceftriaxone Sodium 1 gm 03/18/25 09:32 03/18/25 10:21 Ceftriaxone Sodium 1 Gm Vial IVPUSH 03/18/25 09:33 1 gm ONCE ONE Administration Sodium Chloride 2,793 mls @ 2,793 mls/hr 03/18/25 09:32 03/18/25 13:18 Ns 30 ml/kg infuse over 1 hr (2793 ml) 03/18/25 10:31 Infused IV Infusion .Q1H STA Iohexol 100 ml 03/18/25 09:50 03/18/25 09:51 Iohexol 350 Mg/Ml 100 Ml Infus..Btl IV 03/18/25 09:51 85 ml ONCE ONE Administration Ketorolac Tromethamine 30 mg 03/18/25 08:27 03/18/25 08:52 Ketorolac Tromethamine 15 Mg/Ml Vial IVPUSH 03/18/25 08:28 30 mg ONCE ONE Administration Medical Decision Making Medical Decision Making [facility] Narrative: 0825 34-year-old female presents with right-sided flank pain & abd pain recently completed course of antibiotics however pain persists. Physical exam right-sided CVA tenderness on exam and ruq pain History and physical exam concerning for UTI versus pyelo versus kidney stones vs cholecysittis. Unlikely choledocholithiasis, cholangitis acute abdomen, dissection. No falls or traumas unlikely cauda equina, cord compression. I do not suspect torsion or ectopic Plan labs, imaging Differential Diagnosis Differential Diagnoses: The differential diagnosis associated with the presentation includes (History and physical exam concerning for UTI versus pyelo versus kidney stones vs cholecysittis. Unlikely choledocholithiasis, cholangitis acute abdomen, dissection. No falls or traumas unlikely cauda equina, cord compression. I do not suspect torsion or ectopic ) Admission/Observation Consideration of admission/observation: Escalation of care including admission/observation considered Consult Healthcare Provider Management of the patient was discussed with: Welding Process Specialist (Surgery Dr. Yates ) Lab Data [facility] Lab Attestation statement: I reviewed the patient's lab results. 03/18/25 08:35 03/18/25 08:35 Labs: Lab Results 03/18/25 03/18/25 Range/Units 08:35 10:16 WBC 8.1 (4.8-10.8) X10*3/uL RBC 4.74 (4.20-5.50) X10*6/uL Hgb 13.4 (12.0-16.0) g/dl Hct 39.4 (37.0-47.0) % MCV 83.1 (80.0-98.0) fL MCH 28.3 (27.0-33.0) pg MCHC 34.0 (31.0-35.0) g/dl RDW 12.4 (11.0-16.0) % Plt Count 330 (160-400) X10*3/uL MPV 10.0 (9.4-12.3) fL Immature Gran % (Auto) 0.4 (0.0-0.4) % Neut % (Auto) 62.4 (45-73) % Lymph % (Auto) 28.6 (20-40) % [place] % (Auto) 6.7 (2-11) % Eos % (Auto) 1.5 (0-4) % Baso % (Auto) 0.4 (0-2) % Lymph # (Auto) 2.3 (1.2-4.9) X10*3/uL [place] # (Auto) 0.5 (0.1-1.2) X10*3/uL Eos # (Auto) 0.1 (0.0-0.4) X10*3/uL Baso # (Auto) 0.0 (0.0-0.2) X10*3/uL Abs Immat Gran (auto) 0.03 (0.00-0.03) X10*3/uL Absolute Neuts (auto) 5.0 (2.0-8.3) x10*3/uL Absolute Nucleated RBC 0.000 (0.0-0.012) X10*3/uL Nucleated RBC % (auto) 0.0 (0.0-0.2) /100WBC Sodium 139 (135-145) mmol/L Potassium 3.7 (3.3-5.1) mmol/L Chloride 107 (96-108) mmol/L Carbon Dioxide 26 (22-29) mmol/L Anion Gap 10 L (12-20) BUN 12 (9-16) mg/dL Creatinine 0.66 (0.5-1.4) mg/dL Estim Creat Clear Calc 131.6 Estimated GFR > 60 Random Glucose 113 (60-115) mg/dL Lactic Acid 0.8 (0.5-2.0) mmol/L Calcium 9.1 (8.4-10.2) mg/dL Magnesium 1.9 (1.6-2.6) mg/dL Total Bilirubin 0.3 (0.0-1.0) mg/dL AST 29 (5-31) U/L ALT 35 H (0-31) U/L Alkaline Phosphatase 79 (39-117) U/L Total Protein 7.8 (6.5-8.0) g/dL Albumin 4.4 (3.5-5.0) g/dL Urine Color Yellow Urine Appearance Cloudy Urine pH 5.5 (5.0-9.0) Ur Specific [place] 1.025 (1.005-1.025) Urine Protein 30 (1+) H (Neg-Trace) mg/dL Urine Glucose (UA) Negative (Negative) mg/dL Urine Ketones Negative (Negative) mg/dL Urine Blood Large (3+) H (Negative) Urine Nitrite Negative (Negative) Ur Leukocyte Esterase Small (1+) H (Negative) Urine RBC >20 H (0-2) /HPF Urine WBC 21-50 H (0-5) /HPF Ur Squamous Epith Cells 3-5 (0-2) /HPF Urine Bacteria 2+ (None Seen) Hyaline Casts 0-2 (0-2) /LPF Independent Interpretation I performed an independent interpretation of an: CT Scan (IMPRESSION: 1. Gallstone in a distended gallbladder. Correlate clinically for presence or absence of right upper quadrant pain. 2. Hepatic steatosis. 3. No urinary tract stone or hydronephrosis.) Radiology Impression Discussion of test interpretation with radiology: I have reviewed the radiologist's reading. Independent Historian Clinical information obtained from an independent historian. History obtained from or confirmed by: Other (Significant other) External Record Review External record reviewed: Inpatient record, Office record, Outpatient record, Prior outpatient labs, Prior outpatient radiology, Primary care record and Outside ED record Prescription Management I considered prescription management with: Pain Medication Critical Care Time Critical Care Time Critical Care Time: Yes Total Critical Care Time: 35 Attestation: I attest to this time spent taking care of the patient, obtaining history, physical, reviewing labs, imaging, treatment of patients condition +/- specialist/hospitalist consult +/- procedure Discharge Plan Discharge Clinical Impression: UTI (urinary tract infection), Right flank pain, Hematuria Patient Disposition: Admitted As Inpatient
[2025-03-18 08:40] LABS: MANUAL DIFF FLAG NO
[2025-03-18 08:41] LABS: Hematocrit 39.4 % (37.0-47.0); Hemoglobin 13.4 g/dl (12.0-16.0); Imm Gran Abs Auto 0.03 X10*3/uL (0.00-0.03); Imm Gran Pct Auto 0.4 % (0.0-0.4); Lymphocytes Absolute Auto 2.3 X10*3/uL (1.2-4.9); Mean Corpuscular HGB Conc 34.0 g/dl (31.0-35.0); Mean Corpuscular Hemoglobin 28.3 pg (27.0-33.0); Mean Corpuscular Volume 83.1 fL (80.0-98.0); NRBC Abs Auto 0.000 X10*3/uL (0.0-0.012); NRBC Pct Auto 0.0 /100WBC (0.0-0.2); Platelet Count 330 X10*3/uL (160-400); Red Blood Count 4.74 X10*6/uL (4.20-5.50); White Blood Count 8.1 X10*3/uL (4.8-10.8)
[2025-03-18 08:42] LABS: Appearance Urine Cloudy; Glucose Urine UA Negative (Negative); PH 5.5 (5.0-9.0); Specific Gravity - Urine 1.025 (1.005-1.025); UMIC TRIGGER UACC YES
[2025-03-18 08:47] LABS: UACC Culture Trigger YES
--- OUTSIDE RECORDS SUMMARY | 2025-03-18 08:51 | XMS_ITS | Clinical Summary ---
Author Organization [facility] ity Address [address] [place] [address] Care Team Providers Care Roll Grinder Name Role Phone Unavailable Primary Care Provider [...]
--- OUTSIDE RECORDS SUMMARY | 2025-03-18 08:51 | XMS_ITS | Encounter Summary ---
Author Organization [employer] Address [address] [facility] 7 [place] [address] Care Team Providers Care Cork Floor Installer Name Role Phone Unavailable Primary Care Provider Unavailabl e Encounter Details Date Type Department Care Team (Late st Contact Info) Description 06/12/2022 Abstract [facility] ADULT DENTAL [address] [place] [address] Rhys Diaz DDS [address] [place] [address] Social History Tobacco Use Types Packs/Day Years [...]
--- OUTSIDE RECORDS SUMMARY | 2025-03-18 08:51 | XMS_ITS | Clinical Summary ---
Author Organization [employer] Address [address] [place] [address] [address] [place] [address] Care Team Providers Care Chemical Processing Technician Name Role Phone Unavailable Primary Care Provider [...]
--- OUTSIDE RECORDS SUMMARY | 2025-03-18 08:51 | XMS_ITS | Encounter Summary ---
Author Organization [employer] Address [address] [place] [address] 7 [place] [address] Care Team Providers Care Fisher Seal Name Role Phone Unavailable Primary Care Provider Unavailabl e Reason for Visit * Reason Onset Date Comments medication 09/23/2022 Encounter Details Date Type Department Care Team ([facility] st Contact Info) Description 09/23/2022 Telephone [facility] ADULT DENTAL [address], [place] [phone] Rhys Diaz DDS [address], [place] [phone] medication Social History Tobacco Use Types Packs/Day [...]
--- OUTSIDE RECORDS SUMMARY | 2025-03-18 08:51 | XMS_ITS | Encounter Summary ---
Author Organization [employer] Address [address] [facility] 7 [place] [address] Care Team Providers Care Infantry Senior Sergeant Name Role Phone Unavailable Primary Care Provider Unavailabl e Encounter Details Date Type Department Care Team (Latest Contact Info) Description 08/31/[address] [facility] CONVERSIONS Dental, Provider, DDS Social History Tobacco [...]
[2025-03-18 09:35] LABS: Alanine Aminotransferase 35 U/L (0-31); Albumin Level 4.4 g/dL (3.5-5.0); Alkaline Phosphatase 79 U/L (39-117); Anion Gap 10 (12-20); Aspartate Amino Transferase 29 U/L (5-31); Blood Urea Nitrogen 12 mg/dL (9-16); Calcium 9.1 mg/dL (8.4-10.2); Carbon Dioxide 26 mmol/L (22-29); Chloride 107 mmol/L (96-108); Creatinine Clr Calc Pharmacy 131.6; Estimated Glomerular Filt Rate > 60; Magnesium 1.9 mg/dL (1.6-2.6); Potassium 3.7 mmol/L (3.3-5.1); Sodium 139 mmol/L (135-145); Total Protein 7.8 g/dL (6.5-8.0)
[2025-03-18] MEDS: iohexoL 350 MG/ML 100 ML INFUS..BTL IV (09:51)
[2025-03-18] MEDS: SODIUM CHLORIDE 2793 ML IV (10:21)
--- NOTE | 2025-03-18 14:08 | PM.IMHP ---
History of Present Illness Date of Service: 03/18/25 Attending physician on admission: Jose Hein Chief Complaint: abdominal pain This is a 34-year-old female with no significant past medical history who presents to the emergency department with abdominal pain. Patient states she was diagnosed to have a UTI and was treated with 5 days of oral Macrobid. After completing treatment her dysuria resolved. However she has been having right flank pain. In addition she reports intermittent right upper quadrant abdominal pain with radiation to her right shoulder after eating. In the emergency department she was afebrile, there was no elevated white blood cell count. Kidney function is stable, lactic acid is normal. Urinalysis is consistent with urinary tract infection. CT scan of the abdomen and pelvis showed hepatic steatosis, gallstones with a distended gallbladder. LFTs were within normal limits. Emergency room provider did discuss the case with the on-call general surgeon who did not feel that the patient would likely require acute surgical intervention at this time. Review of Systems Review of Systems: Yes all other systems are reviewed and are negative Constitutional: Constitutional: Denies chills and Denies fever(s) Cardiovascular: Cardiovascular: Denies chest pain, Denies palpitations and Denies dyspnea Respiratory: Respiratory: Denies cough and Denies dyspnea Gastrointestinal: Gastrointestinal: Denies nausea and Denies vomiting Endocrine: Endocrine: Denies palpitations [facility] Medical History TOA (tubo-ovarian abscess) Family History Father Medical history unknown Mother Diabetes Hypertension Maternal Aunt Breast cancer Surgical History Hx of dilation and curettage History of tubal ligation Social History Household Members: Family Household Members Other:: mother Housing: Apartment Smoked in Last 30 Days: No Use of substances other than those prescribed or required for medical reasons: No Advance Directives: No Advance Directives Information Provided: Yes Patient : No service: No Current occupational status: employed Meds Allergies Allergy/AdvReac Type Severity Reaction Status Date / Time No Known Allergies Allergy Verified 03/18/25 08:14 Active Medications: Current Medications Acetaminophen (Acetaminophen 325 Mg Tablet) 650 mg PO Q6H PRN PRN Reason: Pain, Mild 1-3,fever,headache Calcium Carbonate (Calcium Carbonate 750 Mg Tab.Chew) 750 mg PO Q4H PRN PRN Reason: Heartburn Magnesium Hydroxide (Milk Of Magnesia 30 Ml Oral.Susp) 30 ml PO DAILY PRN PRN Reason: Constipation Melatonin (Melatonin 3 Mg Tablet) 6 mg PO BEDTIME PRN PRN Reason: Insomnia Sodium Chloride (0.9 % Sodium Chloride Flush 3 Ml Syringe) 3 ml IVFLUSH QSHIFT [facility] Home Medications ?Medication ?Instructions ?Recorded ?Confirmed ?Last Taken ?Type No Known Home Meds 03/18/25 03/18/25 Unknown History Physical Exam Vital Signs and Narrative: Vital Signs: Last Vital Signs Temp 98.1 F 03/18/25 12:00 Pulse 79 03/18/25 13:20 Resp 16 03/18/25 13:20 BP 127/88 03/18/25 13:20 Pulse Ox 99 03/18/25 13:20 O2 Del Method Room Air 03/18/25 13:20 BMI result Body Mass Index 35.2 Const: General: cooperative, comfortable, alert and awake Nutritional Appearance: obese Orientation/consciousness: patient oriented x3 Resp: Effort & Inspection: normal respiratory effort, able to speak in complete sentences, no respiratory distress and no use of accessory muscles Cardio: Rate: regular rate GI: Other: some RUQ tenderness with deep palpation Inspection: No distended Palpation (GI): Soft to palpation Neuro: General: patient oriented x3, No moves all extremities and No CN's II-XI intact bilaterally Extrem: General: No pedal edema Results Labs 03/18/25 08:35 03/18/25 08:35 Labs: Laboratory Results - last 24 hr 03/18/25 03/18/25 08:35 10:16 MCV 83.1 MCH 28.3 MCHC 34.0 RDW 12.4 Plt Count 330 MPV 10.0 Immature Gran % (Auto) 0.4 Neut % (Auto) 62.4 Lymph % (Auto) 28.6 [place] % (Auto) 6.7 Eos % (Auto) 1.5 Baso % (Auto) 0.4 Lymph # (Auto) 2.3 [place] # (Auto) 0.5 Eos # (Auto) 0.1 Baso # (Auto) 0.0 Abs Immat Gran (auto) 0.03 Absolute Neuts (auto) 5.0 Absolute Nucleated RBC 0.000 Nucleated RBC % (auto) 0.0 Anion Gap 10 L Estim Creat Clear Calc 131.6 Estimated GFR > 60 Random Glucose 113 Lactic Acid 0.8 Calcium 9.1 Magnesium 1.9 Total Bilirubin 0.3 AST 29 ALT 35 H Alkaline Phosphatase 79 Total Protein 7.8 Albumin 4.4 Urine Color Yellow Urine Appearance Cloudy Urine pH 5.5 Ur Specific [place] 1.025 Urine Protein 30 (1+) H Urine Glucose (UA) Negative Urine Ketones Negative Urine Blood Large (3+) H Urine Nitrite Negative Ur Leukocyte Esterase Small (1+) H Urine RBC >20 H Urine WBC 21-50 H Ur Squamous Epith Cells 3-5 Urine Bacteria 2+ Hyaline Casts 0-2 Assessment and Plan (1) UTI (urinary tract infection): Status: Acute (2) Cholelithiasis: Status: Acute Plan This is a 54-year-old female with no significant past medical history who was recently treated for UTI and presents to the emergency with right-sided flank pain and right upper quadrant abdominal pain UTI Failed outpatient therapy with Macrobid No sepsis IV Ceftriaxone follow urine culture RUQ abdominal pain/cholelithiasis possible biliary colic imaging with gallstones with distended gallbladder General surgery consultation Pain management DVT prophylaxis-mechanical devices/early ambulation Quality Stroke Does the patient have a stroke diagnosis?: No VTE Prior VTE?: No VTE Risk Level:: Medical - moderate - high VTE Device Contraindication: N/A - Device Ordered VTE Drug Contraindication: Treatment Not Indicated
--- NOTE | 2025-03-18 15:32 | PHA.MEDREC ---
Addendum entered by Lisa Chan RPh 03/18/25 15:35: MED REC REVIEWED BY [facility] Original Note: Pharmacy Consult ? Medication Reconciliation Pharmacy has completed the medication reconciliation. Patient states she is not taking any medications.
[2025-03-18] MEDS: 0.9 % Sodium Chloride Flush 3 ML SYRINGE IVFLUSH ×2 (16:18→23:36)
--- NOTE | 2025-03-18 17:12 | PM.HPGS ---
History of Present Illness History of Present Illness Date of Service: 03/18/25 Chief complaint: UTI Narrative: Genet Russell is a 34 year old female been having issues with urinary tract infections and was treated as an outpatient with Macrobid. She comes in now because she has been having right flank pain and in the emergency room workup shows gallbladder with gallstones. There is no evidence of any cholecystitis. She does have some tenderness in the right upper quadrant right flank area. With discussion she does complain after eating having epigastric type pain right upper quadrant going towards her back. She does have some nausea at times. She was not aware of having gallstones. Urinalysis is also consistent with active urinary tract infection Review of Systems Review of Systems: Yes all other systems are reviewed and are negative [facility] Past Medical History Medical History TOA (tubo-ovarian abscess) Family History Family History Father Medical history unknown Mother Diabetes Hypertension Maternal Aunt Breast cancer Surgical History Surgical History Hx of dilation and curettage History of tubal ligation Social History Social History Household Members: Family Household Members Other:: mother Housing: Apartment Smoked in Last 30 Days: No Use of substances other than those prescribed or required for medical reasons: No Advance Directives: No Advance Directives Information Provided: Yes Patient : No service: No Current occupational status: employed Meds Allergies Allergy/AdvReac Type Severity Reaction Status Date / Time No Known Allergies Allergy Verified 03/18/25 08:14 Active Medications: Current Medications Acetaminophen (Acetaminophen 325 Mg Tablet) 650 mg PO Q6H PRN PRN Reason: Pain, Mild 1-3,fever,headache Calcium Carbonate (Calcium Carbonate 750 Mg Tab.Chew) 750 mg PO Q4H PRN PRN Reason: Heartburn Ceftriaxone Sodium (Ceftriaxone Sodium 1 Gm Vial) 1 gm IVPUSH Q24H [facility] Magnesium Hydroxide (Milk Of Magnesia 30 Ml Oral.Susp) 30 ml PO DAILY PRN PRN Reason: Constipation Melatonin (Melatonin 3 Mg Tablet) 6 mg PO BEDTIME PRN PRN Reason: Insomnia Morphine Sulfate (Morphine Sulfate 4 Mg/Ml Cartridge) 2 mg IVPUSH Q4H PRN; Protocol PRN Reason: Pain, Severe (Pain Scale 7-10) Ondansetron HCl (Ondansetron Hcl 4 Mg/2 Ml Vial) 4 mg IVPUSH Q8H PRN PRN Reason: Nausea and Vomiting Sodium Chloride (0.9 % Sodium Chloride Flush 3 Ml Syringe) 3 ml IVFLUSH [facility] Last Admin: 03/18/25 16:18 Dose: 3 ml Home Medications ?Medication ?Instructions ?Recorded ?Confirmed ?Last Taken ?Type No Known Home Meds 03/18/25 03/18/25 Unknown History Physical Exam Vital Signs: Vital Signs: Last Vital Signs Temp 98.4 F 03/18/25 16:19 Pulse 87 03/18/25 16:19 Resp 12 03/18/25 16:19 BP 140/87 H 03/18/25 16:19 Pulse Ox 97 03/18/25 16:19 O2 Del Method Room Air 03/18/25 16:19 BMI result Body Mass Index 35.2 Const: General: cooperative, healthy appearing, comfortable and no acute distress Eyes: Other: Nonicteric Resp: Effort & Inspection: normal respiratory effort Auscultation: clear to auscultation bilaterally Cardio: Rate: regular rate Rhythm: regular rhythm GI: Other: Abdomen is soft nondistended little tender in the epigastric to right upper quadrant area mild guarding no rebound no peritoneal signs Skin: Other: Nonicteric Extrem: General: Yes normal to inspection Psych: Appearance: grossly normal Mental Status: mental status grossly normal Speech and movement: Normal speech and movement present Affect: normal affect Results Results Labs: Short CBC 03/18/25 Range/Units 08:35 WBC 8.1 (4.8-10.8) X10*3/uL Hgb 13.4 (12.0-16.0) g/dl Hct 39.4 (37.0-47.0) % Plt Count 330 (160-400) X10*3/uL BMP 03/18/25 08:35 Sodium 139 Potassium 3.7 Chloride 107 Carbon Dioxide 26 BUN 12 Creatinine 0.66 Calcium 9.1 Liver Function 03/18/25 Range/Units 08:35 Total Bilirubin 0.3 (0.0-1.0) mg/dL AST 29 (5-31) U/L ALT 35 H (0-31) U/L Alkaline Phosphatase 79 (39-117) U/L Albumin 4.4 (3.5-5.0) g/dL Urine 03/18/25 Range/Units 08:35 Urine Color Yellow Urine Appearance Cloudy Urine pH 5.5 (5.0-9.0) Ur Specific [place] 1.025 (1.005-1.025) Urine Protein 30 (1+) H (Neg-Trace) mg/dL Urine Glucose (UA) Negative (Negative) mg/dL Abdomen CT scan report/results: report reviewed and image reviewed CT scan - pelvis: report reviewed and image reviewed Additional studies: Patient: Genet Webber MR#: [id number] : 1990 Acct:[id number] Age/Sex: 34 / F ADM Date: 03/18/25 Loc: HO.ED Attending Dr: Ordering Physician: Joseph Jorgensen Date of Service: 03/18/25 Procedure(s): CT abdomen pelvis w IV con Accession Number(s): [id number] cc: Joseph Jorgensen; Dayan Malave MD~ Report Number: [id number]: Total DLP = 0.00 mGy-cm Reason for Exam: R flank pain s/p atbx ? pyelo CLINICAL HISTORY: R flank pain s p atbx ? pyelo CT abdomen and pelvis with contrast Comparison: None provided Findings: No consolidation or effusion. Gallstone in a distended gallbladder. Correlate clinically for presence or absence of right upper quadrant pain. Hepatic steatosis. No bowel obstruction, pneumoperitoneum, or pneumatosis. Nonspecific enlarged portacaval node measuring up to 12 mm in short axis may be reactive in nature. Small broad-based uncomplicated fat containing umbilical hernia. No evidence of appendicitis. The bones are intact. IMPRESSION: 1. Gallstone in a distended gallbladder. Correlate clinically for presence or absence of right upper quadrant pain. 2. Hepatic steatosis. 3. No urinary tract stone or hydronephrosis. This document has been electronically signed by: Gabby Huynh MD on 03/18/2025 12:43:16 Dictated By: Gabby Huynh MD Signed By: <Electronically signed by Gabby Huynh MD in OV> 03/18/25 1244 DD/ 1243 TD/TT: 03/18/25 1243 Compressed Gases Tester: Assessment and Plan (1) Biliary colic: Status: Acute Plan 34-year-old female coming in having issues with urinary tract infection having blood in her urine treated with antibiotics but having flank pain especially after eating yesterday and CT scan showing gallstones and distended gallbladder. Her findings are potentially compatible with biliary colic and plan will be to admit her make her NPO after midnight and re-evaluate in the morning. Consider carrying out laparoscopic cholecystectomy. In the meantime we will treat her as per medical team for continuing urinary tract infection. Extensive discussion had with the patient as well as her fiancee and they understand and agree with the above plan Quality Stroke Does the patient have a stroke diagnosis?: No VTE Prior VTE?: No VTE Risk Level:: Medical - moderate - high VTE Device Contraindication: N/A - Device Ordered VTE Drug Contraindication: Treatment Not Indicated Procedures Date of Service Date of Service: 03/18/25
--- NOTE | 2025-03-18 20:20 | HO.NURTONUR ---
Pt 34 yo f from home with reports of right side flank and abdominal pain x3days radiating into the buttocks. Pt states she was being treated for a uti and completed abx but continues to have pain. Pt denies any chest pain, sob, nausea, vomiting, fevers or any other symptoms of concern. Pt is a&ox4, able to make her needs known and ambulates with steady gait. Pt has 20GIV in LAC and has been medicated per mar, pt states 2mg of prn morphine are effective for her pain. Pt being admitted for IV abx and reevaluation by general surgery in the morning. Pt is NPO after midnight. CT abdomen/ Pelvis: IMPRESSION: 1. Gallstone in a distended gallbladder. Correlate clinically for presence or absence of right upper quadrant pain. 2. Hepatic steatosis. 3. No urinary tract stone or hydronephrosis.
[2025-03-19 03:27] VITALS: BP 128/79; PULSE 85; RESP 18; TEMP 36.6; O2SAT 97
[2025-03-19 06:14] LABS: Anion Gap 12 (12-20); Blood Urea Nitrogen 8 mg/dL (9-16); Calcium 8.6 mg/dL (8.4-10.2); Carbon Dioxide 23 mmol/L (22-29); Chloride 108 mmol/L (96-108); Creatinine Clr Calc Pharmacy 149.7; Estimated Glomerular Filt Rate > 60; Potassium 3.5 mmol/L (3.3-5.1); Sodium 139 mmol/L (135-145)
[2025-03-19 07:21] VITALS: BP 132/81; PULSE 84; RESP 12; TEMP 36.6; O2SAT 97
--- NOTE | 2025-03-19 07:44 | PM.PNGS ---
Subjective Subjective Date of Service: 03/19/25 <Malissa Molina PA-C - Last Filed: 03/19/25 07:52> 03/19/25 <Rancho Sanchez MD - Last Filed: 03/19/25 08:11> Interval history: Presented with right flank/back pain, did report it wrapped around to right side yesterday. Was initially not c/o of abd pain this morning, reports back is sore. Was able to tolerate mashed potatoes and beef last night without RUQ pain. Denies prior similar episodes of pain in the past. <Malissa Molina PA-C - Last Filed: 03/19/25 07:52> Physical Exam Vital Signs: Vital Signs: Last Vital Signs Temp 97.8 F 03/19/25 07:21 Pulse 84 03/19/25 07:21 Resp 12 03/19/25 07:21 BP 132/81 03/19/25 07:21 Pulse Ox 97 03/19/25 07:21 O2 Del Method Room Air 03/19/25 07:21 BMI result Body Mass Index 35.2 <Malissa Molina PA-C - Last Filed: 03/19/25 07:52> Const: General: comfortable, no acute distress and alert <ZORAN Ortega Last Filed: 03/19/25 07:52> Orientation/consciousness: patient oriented x3 <Malissa Molina PA-C - Last Filed: 03/19/25 07:52> Resp: Effort & Inspection: normal respiratory effort <Malissa Molina PA-C - Last Filed: 03/19/25 07:52> GI: Other: corpulent abdomen soft RUQ nontender mild right flank tenderness <ZORAN Ortega Last Filed: 03/19/25 07:52> Skin: General skin exam: no rashes or lesions noted <ZORAN Ortega Last Filed: 03/19/25 07:52> Neuro: General: patient oriented x3 and moves all extremities <ZORAN Ortega Last Filed: 03/19/25 07:52> Objective Data Active Medications Acetaminophen (Acetaminophen 325 Mg Tablet) 650 mg PO Q6H PRN PRN Reason: Pain, Mild 1-3,fever,headache Calcium Carbonate (Calcium Carbonate 750 Mg Tab.Chew) 750 mg PO Q4H PRN PRN Reason: Heartburn Ceftriaxone Sodium (Ceftriaxone Sodium 1 Gm Vial) 1 gm IVPUSH Q24H [facility] Last Admin: 03/19/25 06:21 Dose: 1 gm Documented By: BLANCA Magnesium Hydroxide (Milk Of Magnesia 30 Ml Oral.Susp) 30 ml PO DAILY PRN PRN Reason: Constipation Melatonin (Melatonin 3 Mg Tablet) 6 mg PO BEDTIME PRN PRN Reason: Insomnia Morphine Sulfate (Morphine Sulfate 4 Mg/Ml Cartridge) 2 mg IVPUSH Q4H PRN; Protocol PRN Reason: Pain, Severe (Pain Scale 7-10) Last Admin: 03/18/25 20:00 Dose: 2 mg Documented By: TIFFANIE Ondansetron HCl (Ondansetron Hcl 4 Mg/2 Ml Vial) 4 mg IVPUSH Q8H PRN PRN Reason: Nausea and Vomiting Sodium Chloride (0.9 % Sodium Chloride Flush 3 Ml Syringe) [address] [facility] Last Admin: 03/18/25 23:36 Dose: 3 ml Documented By: BLANCA <Malissa Molina PA-C - Last Filed: 03/19/25 07:52> Labs CBC & Chem 7: 03/18/25 08:35 03/19/25 05:33 <Malissa Molina PA-C - Last Filed: 03/19/25 07:52> Labs: Laboratory Results - last 24 hr 03/18/25 03/18/25 03/19/25 08:35 10:16 05:33 MCV 83.1 MCH 28.3 MCHC 34.0 RDW 12.4 Plt Count 330 MPV 10.0 Immature Gran % (Auto) 0.4 Neut % (Auto) 62.4 Lymph % (Auto) 28.6 [place] % (Auto) 6.7 Eos % (Auto) 1.5 Baso % (Auto) 0.4 Lymph # (Auto) 2.3 [place] # (Auto) 0.5 Eos # (Auto) 0.1 Baso # (Auto) 0.0 Abs Immat Gran (auto) 0.03 Absolute Neuts (auto) 5.0 Absolute Nucleated RBC 0.000 Nucleated RBC % (auto) 0.0 Anion Gap 10 L 12 Estim Creat Clear Calc 131.6 149.7 Estimated GFR > 60 > 60 Random Glucose 113 107 Lactic Acid 0.8 Calcium 9.1 8.6 Magnesium 1.9 Total Bilirubin 0.3 AST 29 ALT 35 H Alkaline Phosphatase 79 Total Protein 7.8 Albumin 4.4 Urine Color Yellow Urine Appearance Cloudy Urine pH 5.5 Ur Specific [place] 1.025 Urine Protein 30 (1+) H Urine Glucose (UA) Negative Urine Ketones Negative Urine Blood Large (3+) H Urine Nitrite Negative Ur Leukocyte Esterase Small (1+) H Urine RBC >20 H Urine WBC 21-50 H Ur Squamous Epith Cells 3-5 Urine Bacteria 2+ Hyaline Casts 0-2 <Malissa Molina PA-C - Last Filed: 03/19/25 07:52> Procedures Date of Service Date of Service: 03/19/25 <Malissa Molina PA-C - Last Filed: 03/19/25 07:52> 03/19/25 <Rancho Sanchez MD - Last Filed: 03/19/25 08:11> Progress Note: A&P Assessment and plan (1) UTI (urinary tract infection): Status: Acute <Malissa Molina PA-C - Last Filed: 03/19/25 07:52> (2) Gallstone: Status: Acute <Malissa Molina PA-C - Last Filed: 03/19/25 07:52> Assessment and Plan: Admitted for hematuria, UTI that failed outpatient treatment. Found to have gallstone on CT scan and therefore general surgery consulted, no wall thickening or pericholecystic fluid. She was able to tolerate solid diet last night without abd pain. She does have a large gallstone on imaging without surrounding changes. She is clinically appearing well. Unclear if this is biliary colic as she has had no prior similar episodes. Will advance to low fat diet and see how she does. If has recurrence, can discuss proceeding with cholecystectomy during admission. Patient comfortable with plan. <Malissa Molina PA-C - Last Filed: 03/19/25 07:52> Admitted for hematuria, UTI that failed outpatient treatment. Found to have gallstone on CT scan and therefore general surgery consulted, no wall thickening or pericholecystic fluid. She was able to tolerate solid diet last night without abd pain. She does have a large gallstone on imaging without surrounding changes. She is clinically appearing well. Unclear if this is biliary colic as she has had no prior similar episodes. Will advance to low fat diet and see how she does. If has recurrence, can discuss proceeding with cholecystectomy during admission. Patient comfortable with plan. Patient seen and examined, did report some tenderness to my examination mainly in the right upper quadrant. Agree with the above assessment and plan. Findings suggestive of biliary colic. Could potentially undergo elective cholecystectomy once UTI cleared. <Rancho Sanchez MD - Last Filed: 03/19/25 08:11> Time Spent With Patient Time: Total time managing care of this patient today ____ minutes. <Malissa Molina PA-C - Last Filed: 03/19/25 07:52> Quality Stroke Does the patient have a stroke diagnosis?: No <Malissa Molina PA-C - Last Filed: 03/19/25 07:52> VTE Prior VTE?: No <Malissa Molina PA-C - Last Filed: 03/19/25 07:52> VTE Risk Level:: Medical - moderate - high <ZORAN Ortega Last Filed: 03/19/25 07:52> VTE Device Contraindication: N/A - Device Ordered <Malissa Molina PA-C - Last Filed: 03/19/25 07:52> VTE Drug Contraindication: Treatment Not Indicated <Malissa Molina PA-C - Last Filed: 03/19/25 07:52>
[2025-03-19] MEDS: 0.9 % Sodium Chloride Flush 3 ML SYRINGE IVFLUSH (08:43)
--- NOTE | 2025-03-19 11:47 | P.DS_ITS ---
DS: Providers Provider Date of Service: 03/19/25 Date of admission: 03/18/25 13:34 Date of discharge: 03/19/25 Primary care physician: Dayan Torres MD Consults: 03/18/25 14:04 Consult to General Surgery Routine Consulting Provider: [facility] General Surgeons Reason for consultation: ?cholecystitis Has provider been notified: No DS: Diagnosis Discharge Diagnosis (1) UTI (urinary tract infection): Status: Acute (2) Gallstone: Status: Acute DS: Summary Hospital Course Hospital Course: History and physical as per admitting provider. This is a 34-year-old female with no significant past medical history who presents to the emergency department with abdominal pain. Patient states she was diagnosed to have a UTI and was treated with 5 days of oral Macrobid. After completing treatment her dysuria resolved. However she has been having right flank pain. In addition she reports intermittent right upper quadrant abdominal pain with radiation to her right shoulder after eating. In the emergency department she was afebrile, there was no elevated white blood cell count. Kidney function is stable, lactic acid is normal. Urinalysis is consistent with urinary tract infection. CT scan of the abdomen and pelvis showed hepatic steatosis, gallstones with a distended gallbladder. LFTs were within normal limits. Emergency room provider did discuss the case with the on-call general surgeon who did not feel that the patient would likely require acute surgical intervention at this time. UTI Failed outpatient therapy with Macrobid No sepsis Treated with IV Ceftriaxone Negative urine culture treat with 3 more days of Ceftin RUQ abdominal pain/cholelithiasis possible biliary colic imaging with gallstones with distended gallbladder General surgery consultation> no need for surgical intervention at this time may follow up with General surgery for outpatient cholecystectomy Time Attestation Discharge Coordination Time (in mins): 42 Quality: Safe Use of Opioids Does Pt have an Active Cancer Diagnosis on the Problem List?: No Quality: Stroke Does the patient have a stroke diagnosis?: No Physical Exam Exam: Exam: Appearing in no acute distress head is normocephalic atraumatic eyes pupils are PERRLA sclera is anicteric mouth throat mucous membranes are intact and moist neck is supple no lymphadenopathy, no JVD noted lung sounds are clear to auscultation heart regular rate rhythm, clear S1, S2 positive bowel sounds, abdomen is soft, nontender neuro patient is alert x3, no focal deficits Vital Signs: Vital Signs: Last Vital Signs Temp 97.8 F 03/19/25 07:21 Pulse 84 03/19/25 07:21 Resp 12 03/19/25 07:21 BP 132/81 03/19/25 07:21 Pulse Ox 97 03/19/25 07:21 O2 Del Method Room Air 03/19/25 07:21 BMI result Body Mass Index 35.2 DS: Data Data Completed and Pending Labs on day of discharge: Laboratory Results - last 24 hr 03/19/25 05:33 Sodium 139 Potassium 3.5 Chloride 108 Carbon Dioxide 23 Anion Gap 12 BUN 8 L Creatinine 0.58 Estim Creat Clear Calc 149.7 Estimated GFR > 60 Random Glucose 107 Calcium 8.6 Discharge Plan Discharge Anticipated Discharge Date/Time: 03/19/25 11:44 Patient Disposition: Home, Self-Care Discharge Diagnosis: UTI Biliary colic Referrals: Malissa Molina PA-C [Physician Heel Boom Operator, General Surgery] - 1 Week Dayan Malave MD [Primary Care Provider, Internal Medicine] - 1 Week Discharge Medications: New cefuroxime axetil 500 mg tablet 500 mg PO BID Qty: 6 0RF Discharge Orders: Discharge Order (Routine); Ordered 03/19/25 Ordered By: Yamila Loja Diet: Advance to usual diet Activity on Discharge: As tolerated Stand Alone Forms: Patient Portal Discharge page Print Language: Faroese Care Plan Goals: Follow up with General surgery for outpatient elective cholecystitis Health Concerns: UTI Biliary colic Plan of Treatment: Follow up primary care provider as needed Take all medications as prescribed Assessment: See discharge summary
--- NOTE | 2025-03-19 15:08 | MHC.CM.PN ---
CM MET PT WITH A HAND PLEATER PT LIVES WITH HER AND IS INDEPENDENT WITH CARE SHE HAS NO DME OR SERVICES DECLINES A HCP PCP: GRACE KENT OBSERVATION NOTICE DELIVERED PT CLEARED TO DC HOME TODAY VIA PRIVATE TRANSPORT
== END 2025-03-19 15:33 | disposition home or self-care (01) ==
LOC: HO.ED 12:58 → HO.EDOVER 13:34 → HO.S3 20:07
PROVIDERS: Physician Assistant; Admitting Provider Physician Assistant Medical; Emergency Provider Emergency Medicine; PCP Internal Medicine; Visit Provider Nurse Practitioner Acute Care
DX: K80.50 Calculus of bile duct without cholangitis or cholecystitis without obstruction (principal); K80.20 Calculus of gallbladder without cholecystitis without obstruction; N39.0 Urinary tract infection, site not specified; R10.31 Right lower quadrant pain
CPT/HCPCS: 36415; 74177; 80048; 80053; 81001; 83605; 83735; 85025; 87040; 87086; 96361; 96374; 96375; 96376; 99221; 99285; J0696; J1885; J2270; Q9967

== ENCOUNTER → 2025-03-18 08:26 | Outpatient (BNV) | payer OTHER, SELFPAY | PROVIDERS: Emergency Provider Emergency Medicine; PCP Internal Medicine; Visit Provider Radiology Diagnostic Radiology | DX: K80.20 Calculus of gallbladder without cholecystitis without obstruction (principal); K76.0 Fatty (change of) liver, not elsewhere classified | CPT/HCPCS: 74177 ==

== ENCOUNTER → 2025-03-18 13:34 | Outpatient (BNV) | payer OTHER, SELFPAY | PROVIDERS: Admitting Provider Physician Assistant Medical; Emergency Provider Emergency Medicine; PCP Internal Medicine; Visit Provider Surgery | DX: K80.50 Calculus of bile duct without cholangitis or cholecystitis without obstruction (principal) | CPT/HCPCS: 99222; 99232 ==

== ENCOUNTER → 2025-03-18 13:34 | Outpatient (BNV) | payer OTHER, SELFPAY | PROVIDERS: Admitting Provider Physician Assistant Medical; Emergency Provider Emergency Medicine; PCP Internal Medicine; Visit Provider Nurse Practitioner Acute Care | DX: N39.0 Urinary tract infection, site not specified (principal); K80.20 Calculus of gallbladder without cholecystitis without obstruction | CPT/HCPCS: 99222; 99239 ==

== ENCOUNTER 2025-03-23 07:33 | Outpatient (AMB) | payer OTHER, SELFPAY ==
--- OUTSIDE RECORDS SUMMARY | 2025-03-23 07:36 | XMS_ITS | Encounter Summary ---
Author Organization [employer] Address [address] [facility] 7 [place] [address] Care Team Providers Care Hitcher Name Role Phone Unavailable Primary Care Provider Unavailabl e Encounter Details Date Type Department Care Team (Late st Contact Info) Description 06/12/2022 Abstract [facility] [address] [place] [address] Rhys Diaz DDS [address] [place] [address] Social History Tobacco Use Types Packs/Day Years [...]
--- OUTSIDE RECORDS SUMMARY | 2025-03-23 07:36 | XMS_ITS | Clinical Summary ---
Author Organization [employer] Address [address] [place] [address] [address] [place] [address] Care Team Providers Care Fur Dry Cleaner Hand Name Role Phone Unavailable Primary Care Provider [...]
--- OUTSIDE RECORDS SUMMARY | 2025-03-23 07:36 | XMS_ITS | Encounter Summary ---
Author Organization [employer] Address [address] [place] [address] 7 [place] [address] Care Team Providers Care Labor Training Manager Name Role Phone Unavailable Primary Care Provider Unavailabl e Reason for Visit * Reason Onset Date Comments medication 09/23/2022 Encounter Details Date Type Department Care Team ([facility] st Contact Info) Description 09/23/2022 Telephone [facility] [address] [place], [place] [phone] Rhys Diaz DDS [address] [place], [place] [phone] medication Social History Tobacco Use Types Packs/Day [...]
--- OUTSIDE RECORDS SUMMARY | 2025-03-23 07:36 | XMS_ITS | Clinical Summary ---
Author Organization [facility] Address [address] [place] [address] Care Team Providers Care Sole Assessor Name Role Phone Unavailable Primary Care Provider [...]
--- OUTSIDE RECORDS SUMMARY | 2025-03-23 07:36 | XMS_ITS | Encounter Summary ---
Author Organization [employer] Address [address] [facility] [address] [place] [address] Care Team Providers Care Elevator Tender Name Role Phone Unavailable Primary Care Provider Unavailabl e Encounter Details Date Type Department Care Team (Latest Contact Info) Description 08/31/2018 Abstract [facility] CONVERSIONS Dental, Provider, DDS Social [...]
[2025-03-23 07:37] VITALS: BP 134/76; PULSE 86; O2SAT 98; BMI 35.2
--- NOTE | 2025-03-23 07:37 | A.OFFPC_ITS ---
Vital Signs 03/23/25 07:37 Height 5 ft 4 in Weight 205 lb BMI 35.2 BP 134/76 Blood Pressure Location Lt brachial Position Sitting Pulse 86 Pulse Source Pulse Oximeter Pulse Oximetry (%) 98 Oxygen Delivery Method Room Air Intake Visit Reasons: [facility] 03/18 UTI Allergies No Known Allergies Allergy (Verified 03/23/25 07:38) Tobacco use date assessed: 03/23/25 Dental Screening Dental Screen Date: 03/23/25 Did you have a dental visit in the last 12 months?: Yes Did you have a dental problem in the last 6 months where you did not have access to dental care?: No Was dental information given to patient?: Patient has dentist HPI HPI Comments History of Present Illness Details 34 y/o Female patient who presents to [facility] today for HDF. She was admitted at [facility] on 03/18 - 03/19 for an evaluation and treatment of UTI and Biliary Colic. CT scan of the abdomen and pelvis showed hepatic steatosis, gallstones with a distended gallbladder. LFTs were within normal limits. General surgery was consulted and there was no need for surgical intervention at that time. She was recommended to follow up with General surgery for possible outpatient cholecystectomy. She has an appointment with them on 03/29/25. Today she is feeling much better - she does have intermittent RLQ pain. REPLACED BY [facility] Medical History TOA (tubo-ovarian abscess) Surgical History Hx of dilation and curettage History of tubal ligation Family History (Updated 03/23/25 @ 07:43 by Eva Calixto CMA) Father Medical history unknown Mother Diabetes Hypertension Maternal Aunt Breast cancer Social History Household Members: Spouse Household Members Other:: mother Housing: House Do you presently have visiting nurse or other home services: No Patient Tobacco Use Status: Never used Tobacco Tobacco use type: Cigarette e-Cigarette/Vaping Use: Never Used Second Hand Smoke Exposure: No service: No Current occupational status: employed Cognitive needs: No Hearing needs: No Vision needs: No Female Reproductive History Menstrual Age of Menarche: 11 Questionnaire PHQ-9 Over the last 2 weeks, how often have you been bothered by any of the following problems? 1. Little interest or pleasure in doing things: not at all 2. Feeling down, depressed, or hopeless: not at all 3. Trouble falling or staying asleep, or sleeping too much: several days 4. Feeling tired or having little energy: several days 5. Poor appetite or overeating: not at all 6. Feeling bad about yourself - or that you are a failure or have let yourself or your family down: not at all 7. Trouble concentrating on things, such as reading the newspaper or watching television: not at all 8. Moving or speaking so slowly that other people could have noticed. Or the opposite - being so fidgety or restless that you have been moving around a lot more than usual: not at all 9. Thoughts that you would be better off or of hurting yourself in some way: not at all Total score: 2 Depression Screening Interpretation: Positive Depression Screening Done: Yes Source: Developed by Drs. Fady Joshi, Genet Oakley, Jairon Lowry and colleagues, with an educational hermila from [employer]. Thrive Questionnaire Date Thrive assessed: 03/19/25 I am a: Patient What is your living situation today?: I have a steady place to live Within the past 12 months, did the food you bought not last and you didn't have the money to get more?: Never true Within the past 12 months, did you worry whether your food would run out before you got money to buy more?: Never true Do you have trouble paying for medicines?: No Do you have trouble getting transportation to medical appointments?: No Do you have trouble paying your heating and electricity bill?: No Do you have trouble taking care of your child, family member or friend?: No Do you have trouble with day-to-day activities such as bathing, preparing meals, shopping, managing finances, etc.?: No Are you currently unemployed and looking for a job?: No Are you interested in more education?: Yes Please select the resources that you would like help with: None Currently or been in a relationship where the following occur: No concerns reported THRIVE Score: 0 AUDIT C Alcohol Use Questionnaire (AUDIT-C) 1. How often do you have a drink containing alcohol?: Monthly or less 2. How many drinks containing alcohol do you have on a typical day when you are drinking?: 5 or 6 3. How often do you have six or more drinks on one occasion?: Monthly Total Score: 5 SOCO-7 AMB Questionnaire SOCO-7 Date SOCO - 7 assessed: 03/23/25 Feeling nervous, anxious, or on edge: 0 = Not at all Not being able to stop or control worryin = Not at all Worrying too much about different things: 0 = Not at all Trouble relaxin = Several days Being so restless that it is hard to sit still: 1 = Several days Becoming easily annoyed or irritable: 0 = Not at all Feeling afraid as if something awful might happen: 0 = Not at all Total SOCO-7 score (0-4 normal; 5-9 mild; 10-14 moderate; 15-21 severe): 2 Source: Developed by Drs. Fady Joshi, Genet Oakley, Jairon Lowry and colleagues, with an educational hermila from [employer]. Review of Systems Const All systems reviewed & are unremarkable except as noted in HPI and below Physical exam (Primary Care) Vital Signs: Last Vital Signs Pulse 86 03/23/25 07:37 BP 134/76 03/23/25 07:37 Pulse Ox 98 03/23/25 07:37 Oxygen Delivery Method Room Air 03/23/25 07:37 BMI result Body Mass Index 35.2 Tobacco/Smoking Status: Tobacco use Status Tobacco use date assessed 03/23/25 03/23/25 07:38 Patient Tobacco Use Status Never used Tobacco 03/23/25 07:38 Tobacco use type Cigarette 03/23/25 07:38 e-Cigarette/Vaping Use Never Used 03/23/25 07:38 PHQ-9: PHQ-9 Score PHQ-9: Total score 2 03/23/25 07:47 Depression Screening Interpretation: Positive Thrive Assessment: Date of Thrive Assessment Date Thrive assessed 03/19/25 03/23/25 07:38 Currently or been in a relationship where the following occur: No concerns reported Const General: no acute distress Nutritional Appearance: obese Orientation/consciousness: patient oriented x3 Resp Effort & Inspection: normal respiratory effort Auscultation: clear to auscultation bilaterally Cardio Heart sounds: S1 normal heart sound present and S2 normal heart sound present GI Inspection: Yes Abdominal panniculus present and Yes obesity Palpation (GI): Soft to palpation, not firm, Tenderness to palpation present (GI) in the RLQ, no guarding and not rigid Neuro General: patient oriented x3, gait normal and moves all extremities Psych Speech and movement: Normal speech and movement present Coding Level of Care Code New Pt Level 4 (53725) Diagnoses UTI (urinary tract infection) N39.0 Biliary colic K80.50 Time Spent (min) 20 Assessment & Plan Assessment & Plan (1) UTI (urinary tract infection): Code(s): N39.0 - Urinary tract infection, site not specified Category: Medical Plan: Resolved. (2) Biliary colic: Code(s): K80.50 - Calculus of bile duct without cholangitis or cholecystitis without obstruction Category: Medical Plan: Has an appointment with General Surgery on 03/29/25.
== END 2025-03-23 07:58 | disposition home or self-care (01) ==
PROVIDERS: PCP Internal Medicine; Visit Provider Nurse Practitioner Family
DX: N39.0 Urinary tract infection, site not specified (principal); K80.50 Calculus of bile duct without cholangitis or cholecystitis without obstruction

== ENCOUNTER 2025-03-28 08:08 | Outpatient (AMB) | payer OTHER, SELFPAY ==
--- NOTE | 2025-03-28 08:14 | MHC.OFFVIS ---
Vital Signs 03/28/25 08:20 Height 5 ft 4 in Weight 205 lb BMI 35.2 BP 116/82 Intake Visit Reasons: repeat urine dip Sterile Processing Technologist Required: Yes Sterile Processing Technologist Language: Certified Industrial Hygienist Services: Sterile Processing Technologist Present (in person) Sterile Processing Technologist Name: Lotus EVANS Information Interpreted: non-clinical & clinical Accompanied by: Self / Same As Patient Allergies No Known Allergies Allergy (Verified 03/28/25 08:21) Is last menstrual period known: Yes Last menstrual period: 03/22/25 HPI Comments Details: Presenting for repeat urine dip. Last visit urine dip showed microscopic hematuria, urine culture showed no growth PFSH Medical History TOA (tubo-ovarian abscess) Surgical History Hx of dilation and curettage History of tubal ligation Family History (Updated 03/23/25 @ 07:43 by Eva Calixto CMA) Father Medical history unknown Mother Diabetes Hypertension Maternal Aunt Breast cancer Social History Household Members: Spouse Household Members Other:: mother Housing: House Do you presently have visiting nurse or other home services: No Patient Tobacco Use Status: Never used Tobacco Tobacco use type: Cigarette e-Cigarette/Vaping Use: Never Used Second Hand Smoke Exposure: No service: No Current occupational status: employed Cognitive needs: No Hearing needs: No Vision needs: No Female Reproductive History Menstrual Age of Menarche: 11 Date of last menstrual period: 03/22/25 control method: permanent sterilization Review of Systems Const All systems reviewed & are unremarkable except as noted in HPI and below Reports as per HPI and Reports no additional complaints GI Reports no additional complaints Reports no additional complaints Physical Exam Vital Signs: Last Vital Signs BP 116/82 03/28/25 08:20 BMI result Body Mass Index 35.2 Assessment & Plan Assessment & Plan (1) Microscopic hematuria: Code(s): R31.29 - Other microscopic hematuria Category: Medical Plan: Repeat urine dip showed persistent microscopic hematuria. Discussed with the patient the differential diagnosis of microscopic hematuria. CT scan done on 03/18/2025, will refer to Urology. Instructed the patient to call our office back in case a referral appointment is not scheduled, missed or canceled so that we will assist on rescheduling another appointment, the patient verbalized understanding agreed with the plan. Orders: Orders AMB Urinalysis Dipstick Today R31.29 - Other microscopic hematuria Referrals Urology Referral R31.29 - Other microscopic hematuria Coding Level of Care Code Est Pt Level 3 (95370) Diagnoses Microscopic hematuria R31.29
[2025-03-28 08:20] VITALS: BP 116/82; BMI 35.2
--- OUTSIDE RECORDS SUMMARY | 2025-03-28 08:23 | XMS_ITS | Clinical Summary ---
Author Organization [facility] ity Address [address] [place] [address] Care Team Providers Care Pool Table Operator Name Role Phone Unavailable Primary Care Provider [...] Cervical Cancer Screening: P ap Smear 2010 HPV Vaccines (1 - 3-dose SCD M series) 2016 HIV Screening 05/31/2022 Hepatitis C Screening 05/31/2022 Social Influencers of Health Screening 05/31/2022 Depression Screening 06/28/2024 COVID-19 Vaccine (1 - 2023-2 5 season) 2025 Influenza Vaccine (#1) 2025 RSV Immunization Adult Patie nts (1 - 1-dose 75+ series) 2064 HIB [...]
--- OUTSIDE RECORDS SUMMARY | 2025-03-28 08:23 | XMS_ITS | Encounter Summary ---
Author Organization [employer] Address [address] [facility] 7 [place] [address] Care Team Providers Care Assistance Representative Name Role Phone Unavailable Primary Care Provider Unavailabl e Encounter Details Date Type Department Care Team (Latest Contact Info) Description 08/31/2018 Abstract [facility] CONVERSION[facility] Dental, Provider, DDS Social History Tobacco [...]
--- OUTSIDE RECORDS SUMMARY | 2025-03-28 08:23 | XMS_ITS | Clinical Summary ---
Author Organization [employer] Address [address] [place] [address] 7t [place] [address] Care Team Providers Care Audiology Technician Name Role Phone Unavailable Primary Care [...]
--- OUTSIDE RECORDS SUMMARY | 2025-03-28 08:23 | XMS_ITS | Encounter Summary ---
Author Organization [employer] Address [address] [place] [address] 7 [place] [address] Care Team Providers Care Pharmaceutical Development Technician Name Role Phone Unavailable Primary Care Provider Unavailabl e Reason for Visit * Reason Onset Date Comments medication 09/23/2022 Encounter Details Date Type Department Care Team ([facility] st Contact Info) Description 09/23/2022 Telephone [facility] ADULT DENTAL [address] [place], [place] [phone] Rhys Diaz DDS [address] [place], [place] [phone] medication Social History Tobacco Use Types Packs/Day [...]
--- OUTSIDE RECORDS SUMMARY | 2025-03-28 08:23 | XMS_ITS | Encounter Summary ---
Author Organization [employer] Address [address] [facility] 7 [place] [address] Care Team Providers Care New Product Trainer Name Role Phone Unavailable Primary Care Provider Unavailabl e Encounter Details Date Type Department Care Team (Late st Contact Info) Description 06/12/2022 Abstract [facility] ADULT DENTAL [address] [place] [address] Rhys Diaz DDS [address] [place] [address] Social History Tobacco Use Types Packs/Day Years [...]
== END 2025-03-28 08:26 | disposition home or self-care (01) ==
LOC: HO.HWS 08:08
PROVIDERS: PCP Internal Medicine; Visit Provider Obstetrics & Gynecology
DX: R31.29 Other microscopic hematuria (principal)
CPT/HCPCS: 99213

== ENCOUNTER → 2025-03-28 08:08 | Outpatient (BNVA) | payer OTHER, SELFPAY | PROVIDERS: PCP Internal Medicine; Visit Provider Obstetrics & Gynecology | DX: R31.29 Other microscopic hematuria (principal) | CPT/HCPCS: 81002 ==

== ENCOUNTER 2025-03-29 11:30 | Outpatient (AMB) | payer OTHER, SELFPAY ==
--- NOTE | 2025-03-29 11:36 | A.OFFVIS_ITS ---
Vital Signs 03/29/25 11:44 Height 5 ft 4 in Weight 204 lb BMI 35.0 BP 147/77 H Blood Pressure Location Rt brachial Position Sitting Pulse 92 Intake Visit Reasons: biliary colic Intake Note: Patient seen at [facility] ED, here to follow up biliary colic. Patient c/o: RUQ pain that spreads to back, diarrhea, stomach upset. Not eating greasy, fatty foods. Imaging: Abdomen pelvis CT~ 03-18-2025 Pad Extraction Tender Required: Yes Information Interpreted: clinical only (Allison EVANS) Accompanied by: spouse Raheel Russell Allergies No Known Allergies Allergy (Verified 03/29/25 11:43) HPI HPI biliary colic: Details: 34 year old female who was recently admitted to the hospital for UTI that failed outpatient antibiotics. She complained of RUQ/right back pain at that time and CT scan was performed which showed gallstones. She was mildly tender in the RUQ. She was advanced to a solid diet which she tolerated and was discharged to home with instructions to follow up with general surgery. Since being home she has completed her antibiotic course. She denies dysuria, hematuria. She continues to have intermittent RUQ pain that worsens after eating and wraps around her back. She denies fevers, chills, nausea, vomiting, diarrhea, change in skin color, chest pain, palpitations. Her abdominal surgical history is significant for 3 C sections. She does not take any daily medications. [facility] Medical History Gallstone Cholelithiasis TOA (tubo-ovarian abscess) Surgical History Hx of dilation and curettage History of tubal ligation Family History Father Medical history unknown Mother Diabetes Hypertension Maternal Aunt Breast cancer Social History Household Members: Spouse Household Members Other:: mother Housing: House Do you presently have visiting nurse or other home services: No Patient Tobacco Use Status: Never used Tobacco Tobacco use type: Cigarette e-Cigarette/Vaping Use: Never Used Second Hand Smoke Exposure: No service: No Current occupational status: employed Cognitive needs: No Hearing needs: No Vision needs: No Female Reproductive History Menstrual Age of Menarche: 11 Review of Systems Const All systems reviewed & are unremarkable except as noted in HPI and below Physical Exam Vital Signs: Last Vital Signs Pulse 92 03/29/25 11:44 BP 147/77 H 03/29/25 11:44 BMI result Body Mass Index 35.0 Const General: comfortable, no acute distress and alert Orientation/consciousness: patient oriented x3 Resp Effort & Inspection: normal respiratory effort, able to speak in complete sentences and not tachypneic Cardio Rate: regular rate GI Other: corpulent abdomen Inspection: No distended Palpation (GI): Soft to palpation, Tenderness to palpation present (GI) (mild RUQ tenderness, negative landers sign ) and no guarding Percussion: Yes normal to percussion Skin General skin exam: no rashes or lesions noted and no jaundice Neuro General: patient oriented x3 and moves all extremities Assessment & Plan Assessment & Plan (1) Biliary colic: Code(s): K80.50 - Calculus of bile duct without cholangitis or cholecystitis without obstruction Category: Medical Plan 34 year old female who was recently admitted to the hospital for UTI that failed outpatient antibiotics found to have gallstones on imaging with recurrent RUQ abd pain that worsens after eating. Symptoms are suggestive of biliary colic. Her states she is quite uncomfortable at home during the episodes. It was therefore recommended to proceed with laparoscopic cholecystectomy. Risks, benefits, alternatives of laparoscopic possible open cholecystectomy were reviewed with the patient including but not limited to bleeding, infection, numbness, pain, poor healing, injury to the liver, bowel or bile ducts, leak, retained stones and the patient wishes to proceed.?Arrangements will be made for this through short stay surgery with Dr. Sanchez.?All questions were answered. Coding Level of Care Code Tele New Pt Level 4 (45719) Diagnoses Biliary colic K80.50
[2025-03-29 11:44] VITALS: BP 147/77; PULSE 92; BMI 35.0
--- OUTSIDE RECORDS SUMMARY | 2025-03-29 13:22 | XMS_ITS | Encounter Summary ---
Author Organization [employer] Address [address] [place] [address] 7 [place] [address] Care Team Providers Care Clearing Distribution Clerk Name Role Phone Unavailable Primary Care Provider Unavailabl e Reason for Visit * Reason Onset Date Comments medication 09/23/2022 Encounter Details Date Type Department Care Team ([facility] st Contact Info) Description 09/23/2022 Telephone [facility] ADULT DENTAL [address] [place], [place] [phone] Rhys Diaz DDS [address] [place], [place] [phone] medication Social History Tobacco Use Types Packs/Day [...]
--- OUTSIDE RECORDS SUMMARY | 2025-03-29 13:22 | XMS_ITS | Clinical Summary ---
Author Organization [employer] Address [address] [place] [address] [address] [place] [address] Care Team Providers Care Mechanical Spreader Operator Name Role Phone Unavailable Primary Care [...]
--- OUTSIDE RECORDS SUMMARY | 2025-03-29 13:22 | XMS_ITS | Encounter Summary ---
Author Organization [employer] Address [address] [facility] 7 [place] [address] Care Team Providers Care Landscape Contractor Name Role Phone Unavailable Primary Care Provider Unavailabl e Encounter Details Date Type Department Care Team (Latest Contact Info) Description 08/31/2018 Abstract [facility] CONVERSIONS Dental, Provider, DDS Social History Tobacco [...]
--- OUTSIDE RECORDS SUMMARY | 2025-03-29 13:22 | XMS_ITS | Encounter Summary ---
Author Organization [employer] Address [address] [facility] 7 [place] [address] Care Team Providers Care Psychiatry Instructor Name Role Phone Unavailable Primary Care Provider Unavailabl e Encounter Details Date Type Department Care Team (Late st Contact Info) Description 06/12/2022 Abstract [facility] ADULT DENTAL [address] [place] [address] Rhys Diaz DDS [address] [place] [address] Social History Tobacco Use Types Packs/Day Years [...]
--- OUTSIDE RECORDS SUMMARY | 2025-03-29 13:22 | XMS_ITS | Clinical Summary ---
Author Organization [facility] ity Address [address] [place] [address] Care Team Providers Care Warehouse Director Name Role Phone Unavailable Primary Care Provider [...]
== END 2025-03-29 11:46 | disposition home or self-care (01) ==
LOC: HO.HGS 11:31
PROVIDERS: PCP Internal Medicine; Visit Provider Physician Assistant Surgical
DX: K80.50 Calculus of bile duct without cholangitis or cholecystitis without obstruction (principal)
CPT/HCPCS: 99214

== ENCOUNTER 2025-04-18 06:03 | Day surgery (SDC) | payer OTHER, SELFPAY ==
--- OUTSIDE RECORDS SUMMARY | 2025-03-30 06:52 | XMS_ITS | Encounter Summary ---
Author Organization [employer] Address [address] [facility] 7 [place] [address] Care Team Providers Care Leg Assembler Name Role Phone Unavailable Primary Care Provider Unavailabl e Encounter Details Date Type Department Care Team (Latest Contact Info) Description 08/31/2018 Abstract [facility] CONVERSIONS Dental, Provider, DDS Social History Tobacco [...]
--- OUTSIDE RECORDS SUMMARY | 2025-03-30 06:52 | XMS_ITS | Encounter Summary ---
Author Organization [employer] Address [address] [facility] 7 [place] [address] Care Team Providers Care Folding Machine Tender Name Role Phone Unavailable Primary Care Provider Unavailabl e Encounter Details Date Type Department Care Team (Late st Contact Info) Description 06/12/2022 Abstract [facility] ADULT DENTAL [address] [place] [address] Rhys Diaz DDS [address] [place] [address] Social History Tobacco Use Types Packs/Day Years [...]
--- OUTSIDE RECORDS SUMMARY | 2025-03-30 06:52 | XMS_ITS | Clinical Summary ---
Author Organization [facility] ity Address [address] [place] [address] Care Team Providers Care Management Accounts Manager Name Role Phone Unavailable Primary Care [...]
--- OUTSIDE RECORDS SUMMARY | 2025-03-30 06:52 | XMS_ITS | Clinical Summary ---
Author Organization [employer] Address [address] [place] [address] [address]t [place] [address] Care Team Providers Care Buckle Wire Inserter Name Role Phone Unavailable Primary Care Provider [...]
--- OUTSIDE RECORDS SUMMARY | 2025-03-30 06:53 | XMS_ITS | Encounter Summary ---
Author Organization [employer] Address [address] [place] [address] 7 [place] [address] Care Team Providers Care Court Clerk Name Role Phone Unavailable Primary Care Provider Unavailabl e Reason for Visit * Reason Onset Date Comments medication 09/23/2022 Encounter Details Date Type Department Care Team ([facility] st Contact Info) Description 09/23/2022 Telephone [facility] ADULT DENTAL [address] [place], [place] [phone] Rhys Diaz DDS [address] [place], [place] [phone] medication Social History Tobacco Use Types Packs/Day [...]
--- NOTE | 2025-04-16 09:55 | HO.ANESPROP2 ---
Documented by User: Fatemeh Huggins NP 04/16/25 09:57 HPI - Anesthesia Eval Consult details Narrative: 34 yr old female for Cholecystectomy Laparoscopic,POSSIBLE OPEN PMFSH Active Problems Active Problems: All Active Problems (Updated 03/29/25 @ 12:19 by Malissa Molina PA-C) Biliary colic (Acute) Microscopic hematuria (Acute) Abnormality of cervix (Acute) Abnormal uterine bleeding (AUB) (Acute) Right sided abdominal pain (Acute) Polyp at cervical os (Acute) History of tubal ligation (Acute) Cervical cancer screening (Acute) Abnormal ultrasound (Acute) Menstrual periods irregular (Acute) TOA (tubo-ovarian abscess) (Acute) Past Medical History Medical History (Updated 03/29/25 @ 12:19 by Malissa Molina PA-C) Gallstone Cholelithiasis TOA (tubo-ovarian abscess) Family History Family History Father Medical history unknown Mother Diabetes Hypertension Maternal Aunt Breast cancer Family history of problems with anesthesia: No Surgical History Surgical History (Updated 04/16/25 @ 10:50 by Juany Guardado RN) Hx of dilation and curettage (05/28/23) History of tubal ligation History of Problems with Anesthesia: No Social History Social History Household Members: Spouse Household Members Other:: mother Housing: House Do you presently have visiting nurse or other home services: No Patient Tobacco Use Status: Never used Tobacco Tobacco use type: Cigarette e-Cigarette/Vaping Use: Never Used Second Hand Smoke Exposure: No Use of substances other than those prescribed or required for medical reasons: No Are you DNR?: No Advance Directives: No Advance Directives Information Provided: Yes Patient : No (tubal ligation) : No Poor oral hygiene: No service: No Current occupational status: employed Cognitive needs: No Hearing needs: No Vision needs: No Meds Allergies Allergy/AdvReac Type Severity Reaction Status Date / Time No Known Allergies Allergy Verified 03/29/25 11:43 Exam Pertinent Lab Results Pertinent Lab Results: Laboratory Tests 03/18/25 03/19/25 08:35 05:33 WBC 8.1 RBC 4.74 Hgb 13.4 Hct 39.4 Plt Count 330 Sodium 139 Potassium 3.5 Chloride 108 Carbon Dioxide 23 BUN 8 L Creatinine 0.58 Assessment and Plan Final Anesthetic Review Family History of Problems with Anesthesia: No History of Problems with Anesthesia: No Documented by User: Tanya Wilson MD 04/18/25 07:27 [facility] Past Medical History Medical History (Updated 03/29/25 @ 12:19 by Malissa Molina PA-C) Gallstone Cholelithiasis TOA (tubo-ovarian abscess) Family History Family History Father Medical history unknown Mother Diabetes Hypertension Maternal Aunt Breast cancer Surgical History Surgical History (Updated 04/16/25 @ 10:50 by Juany Guardado RN) Hx of dilation and curettage (05/28/23) History of tubal ligation Social History Social History Household Members: Spouse Household Members Other:: mother Housing: House Do you presently have visiting nurse or other home services: No Patient Tobacco Use Status: Never used Tobacco Tobacco use type: Cigarette e-Cigarette/Vaping Use: Never Used Second Hand Smoke Exposure: No Use of substances other than those prescribed or required for medical reasons: No Are you DNR?: No Advance Directives: No Advance Directives Information Provided: Yes Patient : No (tubal ligation) : No Poor oral hygiene: No service: No Current occupational status: employed Cognitive needs: No Hearing needs: No Vision needs: No Meds Allergies Allergy/AdvReac Type Severity Reaction Status Date / Time No Known Allergies Allergy Verified 03/29/25 11:43 Exam Airway Mallampati Class: III TM Dist: >3cm Neck ROM: Full Heart: rrr Lungs: cta Assessment and Plan Assessment Anesthesia Assessment: Anesthesia Plan Discussed and Chart Reviewed Final Anesthetic Review NPO: Yes ASA Class: II Final Preanesthetic Review: No Changes in Pt Med Stat, Meds/Allgs Chart Reviewed and Consent Obtained/Reviewed Patient Risk: Intermediate Procedure Risk: Low Anesthetic Plan Anesthetic Plan: GA Disposition: Standard PACU
[2025-04-16 10:50] VITALS: BMI 35.0
[2025-04-18] VITALS (9 sets, daily range): BP systolic 97–133; BP diastolic 62–85; PULSE 77–103; RESP 16–18; TEMP 36.2–36.7; O2SAT 93–100; BMI 35.2
[2025-04-18] MEDS: Lactated Ringers 1,000 ML 100 ML IVCONT (07:01)
--- NOTE | 2025-04-18 07:17 | MHC.SHP ---
Pre-Procedural Eval Section A - 24 Hr Update-Section A only Date of Service: 04/18/25 The patient is an INPATIENT: No Changes since office visit: Yes Patient answered all questions; No Cold of Flu in the past 2 weeks, No New Medical Problems and No Changes in Medication The patient has been examined within 24 hours of the surgical procedure. The History & Physical has been completed within 30 days and I have reviewed it.: Yes Section B - Complete if H&P > 30 days Chief Complaint: Calculus of bile duct without cholangitis Allergies: Allergies Allergy/AdvReac Type Severity Reaction Status Date / Time No Known Allergies Allergy Verified 03/29/25 11:43 Plan Diagnosis/Plan: Unchanged I have reviewed the history and physical and performed a pertinent physical examination on my patient. No changes have occurred unless specified. Reviewed the procedure, risks, and alternatives in detail with the patient including the possibility of bleeding, infection, pain, or leakage from the bile ducts. We also discussed possibility of an open cholecystectomy. She consents to the laparoscopic or possible open cholecystectomy. Time Spent With Patient Time: Total time managing care of this patient today ____ minutes.
[2025-04-18] MEDS: cefoTEtan disodium 2 GM VIAL IVPUSH (07:39)
--- NOTE | 2025-04-18 08:29 | W.PM.OPN ---
Operative Note Operative Note Date of Service: 04/18/25 Narrative: Preoperative diagnosis: Biliary colic, gallstones Postoperative diagnosis: Same Procedure: Laparoscopic cholecystectomy Surgeon: Rancho Sanchez MD Gas Station Attendant: Malissa Molina PA-C; Cameron Vogel PA-C Anesthesia: General endotracheal Indications for procedure: 34-year-old female patient presenting with recurring episodes of abdominal pain in the right upper quadrant found to have gallstones within the gallbladder including at the neck of the gallbladder. She presents today for elective laparoscopic or possible open cholecystectomy. Operative findings: Moderate adhesions to the gallbladder, large gallstone in the neck of the gallbladder Specimen: gallbladder Estimated blood loss: 2 mL Complications: None Procedure details: Patient was brought to the OR and placed in a supine position. After administering general anesthesia the patient's abdomen was prepped with ChloraPrep and draped in a sterile fashion. A surgical time-out was called the consent confirmed. Patient received preoperative antibiotics and Venodyne boots were in place. Local anesthesia consisting of 0.5% Sensorcaine without epinephrine was infiltrated in a periumbilical region. A 5 mm incision was made above the umbilicus in a transverse fashion. The Veress needle was then inserted while elevating abdominal cavity with towel clips. After positive drop test the abdomen was insufflated to a pressure of 15 mm of mercury. The Veress needle was then removed and a 5 mm trocar inserted. The camera was inserted in the abdomen explored. A 12 mm trocar was then placed in the epigastrium. Two 5 mm trocars placed in the right upper quadrant by the business services assistant. The patient was placed in reverse Trendelenburg positioning and rotated to the left. The gallbladder was grasped with the fundus and retracted cephalad by the business services assistant. The infundibulum was then grasped and retracted away from the liver bed, also by the business services assistant. The Dolphin dissected was then used by the surgeon to dissect the peritoneum off the infundibulum to reveal the junction with the cystic duct. Cystic artery was noted slightly medial and posterior to the cystic duct. After obtaining a critical view the cystic duct was doubly clipped and divided. The cystic artery was then doubly clipped and divided. The gallbladder was then dissected off the liver bed using electrocautery with an L hook. Hemostasis was assured all times using the electrocautery. When the gallbladder is completely dissected off the liver bed was placed in an Endo-Catch bag and brought out through the epigastric incision. The gallbladder was sent to pathology for further examination. The abdomen was then re-examined. The liver bed was irrigated and suctioned dry. No bleeding or bile leak could be identified. CO2 was then evacuated and all trocars removed. Fascia was closed at the epigastric incision using a [id number] 0 Polysorb suture. Skin was closed in all incisions using a subcuticular 4 0 Polysorb suture by both the surgeon and business services assistant. Sterile dressings consisting of Steri-Strips, 2 x 2 gauze, and Tegaderm were then applied. The patient tolerated the procedure well. Sponge instrument and needle counts reported as correct. The patient was transferred to PACU in stable condition.
== END 2025-04-18 10:36 | disposition home or self-care (01) ==
PROVIDERS: PCP Internal Medicine; Visit Provider Surgery
PROC: 0FT44ZZ Resection of Gallbladder, Percutaneous Endoscopic Approach (ICD-10-PCS; CPT 47562; principal; 2025-04-18 07:30)
DX: K80.10 Calculus of gallbladder with chronic cholecystitis without obstruction (principal); K82.8 Other specified diseases of gallbladder; Z98.51 Tubal ligation status
CPT/HCPCS: 47562; 88304; J0131; J0525; J1100; J2003; J2250; J2405; J2704; J2795; J3010

== ENCOUNTER → 2025-04-18 06:03 | Outpatient (BNV) | payer OTHER, SELFPAY | PROVIDERS: PCP Internal Medicine; Visit Provider Surgery | DX: K80.50 Calculus of bile duct without cholangitis or cholecystitis without obstruction (principal) | CPT/HCPCS: 47562 ==

== ENCOUNTER 2025-04-26 10:28 | Outpatient (AMB) | payer OTHER, SELFPAY ==
--- NOTE | 2025-04-26 10:36 | MHC.OFFVIS ---
Vital Signs 04/26/25 10:41 Weight 198 lb BP 135/87 Blood Pressure Location Rt brachial Position Sitting Pulse 96 Intake Visit Reasons: s/p Lap Lucie, poss open Intake Note: Patient here s/p Laparoscopic cholecystectomy. Patient c/o: developed red rash from adhesive bandage. On and off pain at surgical site. Steri strips almost off. Still taking Oxy as needed. Surgery (): 04-18-2025 Research Home Economist Required: No Accompanied by: Self / Same As Patient Allergies No Known Allergies Allergy (Verified 04/26/25 10:43) HPI HPI s/p Lap Lucie, poss open: Details: Ms. Poppy Russell presents today for routine follow up and wound check. She underwent laparoscopic cholecystectomy on 04/18/[address] Sanchez for biliary colic. She tolerated the procedure well. She overall feels well. She only required the oxycodone at night for incisional pain and still has some soreness which she occasionally will take the oxycodone for. She is tolerating a solid diet without nausea or vomiting. She is moving her bowels normally. She reports some redness around the incision sites. She has no other concerns. [facility] Medical History (Updated 03/29/25 @ 12:19 by Malissa Molina PA-C) Gallstone Cholelithiasis TOA (tubo-ovarian abscess) Surgical History (Updated 04/26/25 @ 14:39 by Malissa Molina PA-C) S/P laparoscopic cholecystectomy (04/18/25) Hx of dilation and curettage (05/28/23) History of tubal ligation Family History Father Medical history unknown Mother Diabetes Hypertension Maternal Aunt Breast cancer Social History Household Members: Spouse Household Members Other:: mother Housing: House Do you presently have visiting nurse or other home services: No Patient Tobacco Use Status: Never used Tobacco Tobacco use type: Cigarette e-Cigarette/Vaping Use: Never Used Second Hand Smoke Exposure: No service: No Current occupational status: employed Cognitive needs: No Hearing needs: No Vision needs: No Female Reproductive History Menstrual Age of Menarche: 11 Review of Systems Const All systems reviewed & are unremarkable except as noted in HPI and below Physical Exam Vital Signs: Last Vital Signs Pulse 96 04/26/25 10:41 BP 135/87 04/26/25 10:41 Const General: comfortable, no acute distress and alert Orientation/consciousness: patient oriented x3 Resp Effort & Inspection: normal respiratory effort, able to speak in complete sentences and not tachypneic GI Other: well healed incisions, no surrounding erythema at the incisions but more localized to where adhesive was soft, mild tenderness at incisions nondistended Palpation (GI): no guarding Percussion: Yes normal to percussion Skin General skin exam: no rashes or lesions noted and no jaundice Neuro General: patient oriented x3 and moves all extremities Results Reviewed Results Reviewed: Gallbladder, cholecystectomy: Chronic cholecystitis; cholelithiasis Assessment & Plan Assessment & Plan (1) S/P laparoscopic cholecystectomy: Onset Date: 04/18/25 Comment: Laparoscopic cholecystectomy [place] Code(s): Z90.49 - Acquired absence of other specified parts of digestive tract Category: Surgical Plan 34 year old female laparoscopic cholecystectomy on 04/18/25 for biliary colic. She tolerated the procedure well. Her incisions are well healed without evidence of infection. She is to continue heavy lifting and strenuous restrictions for another 3 weeks. She can follow up as needed if she develops concerns. Coding Level of Care Code Global (28461) Diagnoses S/P laparoscopic cholecystectomy Z90.49
[2025-04-26 10:41] VITALS: BP 135/87; PULSE 96
--- OUTSIDE RECORDS SUMMARY | 2025-04-26 12:46 | XMS_ITS | Encounter Summary ---
Author Organization [employer] Address [address] [facility] 7 [place] [address] Care Team Providers Care Partner Marketing Manager Name Role Phone Unavailable Primary Care Provider Unavailabl e Encounter Details Date Type Department Care Team (Latest Contact Info) Description 08/31/2018 Abstract [facility] CONVERSIONS Dental, Provider, DDS Social History [...]
--- OUTSIDE RECORDS SUMMARY | 2025-04-26 12:46 | XMS_ITS | Clinical Summary ---
Author Organization [employer] Address [address] [place] [address] 7t [place] [address] Care Team Providers Care Cane Loader Name Role Phone Unavailable Primary Care Provider [...]
--- OUTSIDE RECORDS SUMMARY | 2025-04-26 12:46 | XMS_ITS | Clinical Summary ---
Author Organization [facility] ity Address [address] [place] [address] Care Team Providers Care Pressure Dispatcher Name Role Phone Unavailable Primary Care Provider [...]
--- OUTSIDE RECORDS SUMMARY | 2025-04-26 12:46 | XMS_ITS | Encounter Summary ---
Author Organization [employer] Address [address] [facility] 7 [place] [address] Care Team Providers Care Trapeze Performer Name Role Phone Unavailable Primary Care Provider Unavailabl e Encounter Details Date Type Department Care Team (Late st Contact Info) Description 06/12/2022 Abstract [facility] ADULT DENTAL [address] [place] [address] Rhys Diaz DDS [address] [place] [address] Social History Tobacco Use Types Packs/Day Years [...]
--- OUTSIDE RECORDS SUMMARY | 2025-04-26 12:47 | XMS_ITS | Encounter Summary ---
Author Organization [employer] Address [address] [place] [address] 7 [place] [address] Care Team Providers Care Celery Stripper Name Role Phone Unavailable Primary Care Provider Unavailabl e Reason for Visit * Reason Onset Date Comments medication 09/23/2022 Encounter Details Date Type Department Care Team ([facility] st Contact Info) Description 09/23/2022 Telephone [facility] ADULT DENTAL [address] [place], [place] [phone] Rhys Diaz DDS [address] [place], [place] [phone] medication Social History Tobacco Use Types Packs/Day [...]
== END 2025-04-26 10:56 | disposition home or self-care (01) ==
LOC: HO.HGS 10:29
PROVIDERS: PCP Internal Medicine; Visit Provider Physician Assistant Surgical
DX: Z90.49 Acquired absence of other specified parts of digestive tract (principal)
CPT/HCPCS: 99024

== ENCOUNTER 2025-05-16 07:37 | Outpatient (REF) | payer OTHER, SELFPAY ==
[2025-05-16 18:01] LABS: CT PCR NOT DETECTED (Not Detect.); NG PCR NOT DETECTED (Not Detect.)
== END 2025-05-16 07:38 | disposition home or self-care (01) ==
LOC: HO.LNP 07:37
PROVIDERS: PCP Internal Medicine; Visit Provider Obstetrics & Gynecology
DX: Z01.419 Encounter for gynecological examination (general) (routine) without abnormal findings (principal); R10.20 Pelvic and perineal pain unspecified side; Z20.2 Contact with and (suspected) exposure to infections with a predominantly sexual mode of transmission
CPT/HCPCS: 87491; 87591

== ENCOUNTER 2025-05-16 07:37 | Outpatient (AMB) | payer OTHER, SELFPAY ==
--- NOTE | 2025-05-16 07:47 | MHC.OFFVIS ---
Vital Signs 05/16/25 07:49 Height 5 ft 4 in Weight 197 lb BMI 33.8 BP 110/70 Intake Visit Reasons: annual Intake Note: c/o of pelvic pain comes and goes Graphic Manager Required: Yes Graphic Manager Language: Program Schedule Clerk Services: Graphic Manager Present (in person) Graphic Manager Name: Lotus EVANS Information Interpreted: non-clinical & clinical Abe Teacher: Abe Teacher Present (Lotus EVANS) Accompanied by: Self / Same As Patient Allergies No Known Allergies Allergy (Verified 05/16/25 07:51) Is last menstrual period known: Yes HPI Comments Details: Presenting for annual exam. Complaining of pelvic pain on and off no associated urinary or GI symptoms The patient has been on cyclic Provera 10 mg p.o. q.d. day 15-24 and her periods are regular Last Pap/HPV was negative in 10/17 [facility] Medical History Gallstone Cholelithiasis TOA (tubo-ovarian abscess) Surgical History S/P laparoscopic cholecystectomy (04/18/25) Hx of dilation and curettage (05/28/23) History of tubal ligation Family History Father Medical history unknown Mother Diabetes Hypertension Maternal Aunt Breast cancer Social History Household Members: Spouse Household Members Other:: son Housing: House Do you presently have visiting nurse or other home services: No Alcohol intake: current Alcohol intake frequency: holidays/special occasions only Patient Tobacco Use Status: Never used Tobacco Tobacco use type: Cigarette e-Cigarette/Vaping Use: Never Used Second Hand Smoke Exposure: No service: No Current occupational status: employed 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 Sexual orientation: Straight/Heterosexual Gender identity: Female Cognitive needs: No Hearing needs: No Vision needs: No Female Reproductive History Menstrual Age of Menarche: 11 Review of Systems Const All systems reviewed & are unremarkable except as noted in HPI and below Card Reports as per HPI Resp Reports as per HPI GI Reports as per HPI and Reports no additional complaints Reports as per HPI Physical Exam Vital Signs: Last Vital Signs BP 110/70 05/16/25 07:49 BMI result Body Mass Index 33.8 Const General: cooperative, healthy appearing and comfortable Chest Chest palpation & inspection: normal inspection of the chest and normal palpation of entire chest wall Breast/axilla inspection: normal inspection of the breasts and normal inspection of the axillae Breast/axilla palpation: normal palpation of the breasts, normal palpation of the axillae and no axillary lymphadenopathy Resp Effort & Inspection: normal respiratory effort Auscultation: clear to auscultation bilaterally Percussion: percussion normal Cardio Palpation: normal PMI Rate: regular rate Rhythm: regular rhythm Heart sounds: no murmurs and no rubs Peripheral pulses: Peripheral pulses 2+ throughout GI Inspection: Yes normal to inspection Palpation (GI): Soft to palpation, nontender, no guarding, not rigid and No hepatosplenomegaly present Percussion: Yes normal to percussion Auscultation: normal bowel sounds Rectal Exam - Female: deferred General: Yes bladder normal to palpation External Female Exam: No lesion Speculum Exam - Vagina: normal appearance of the vagina, normal palpation, normal vaginal discharge and not erythematous Speculum Exam - Cervix: normal appearance of the cervix and normal palpation Bimanual exam- vagina & uterus: normal bimanual exam, normal palpation, uterine size normal, bladder normal to palpation, consistency normal and normal palpation Bimanual Exam- Adnexa, other: normal adnexae, no masses and no tenderness Assessment & Plan Assessment & Plan (1) Well woman exam: Code(s): Z01.419 - Encounter for gynecological examination (general) (routine) without abnormal findings Category: Medical Plan: Provera 10 mg p.o. q.d. day 15-24 refill sent to the patient's pharmacy Cotesting not indicated this year. Counseled the patient about the recommended dietary allowance of 1000 mg of Calcium & 600 IU of vitamin D. The patient was instructed to perform monthly self-breast exams and to schedule an annual exam in a year; All questions answered and the patient verbalized understanding. Instructed the patient to schedule annual exam in a year (2) Pelvic pain: Code(s): R10.20 - Pelvic and perineal pain unspecified side Category: Medical Plan: Urine dip and test done in the office were both negative. GC and chlamydia taken and pelvic ultrasound ordered. Discussed with the patient the differential diagnosis of pelvic pain including but not limited to adnexal, uterine masses, pelvic infections (PID), GI the (Irritable bowel syndrome, diverticulitis, others), musculoskeletal, myofascial pain abdominal wall , adhesions, endometriosis, psychological and others causes. Will check results and treat accordingly. All questions answered, the patient verbalized understanding. Instructed the patient to schedule an ultrasound and a follow-up appointment in 2 weeks. All questions answered, the patient verbalized understanding and agreed with the plan. Orders: Orders US pelvic and transvaginal Today R10.20 - Pelvic and perineal pain unspecified side CT NG by PCR Vag/Cerv Today R10.20 - Pelvic and perineal pain unspecified side Medications: New medroxyprogesterone (Provera) start Provera 1 tablet daily from day 15-24 cyclically every months, day 1 being 1st day of menses 10 mg PO DAILY 30 tabs 3RF 10 days Coding Level of Care Code Est Pt Prev Care 18-39y(39114) Diagnoses Well woman exam Z01.419 Pelvic pain R10.20
[2025-05-16 07:49] VITALS: BP 110/70; BMI 33.8
--- OUTSIDE RECORDS SUMMARY | 2025-05-16 15:06 | XMS_ITS | Encounter Summary ---
Author Organization [employer] Address [address] [facility] 7 [place] [address] Care Team Providers Care Shingle Shearing Machine Operator Name Role Phone Unavailable Primary Care Provider Unavailabl e Encounter Details Date Type Department Care Team (Late st Contact Info) Description 06/12/2022 Abstract [facility] ADULT DENTAL [address] [place] [address] Rhys Diaz DDS [address] [place] [address] Social History Tobacco Use Types Packs/Day Years [...]
--- OUTSIDE RECORDS SUMMARY | 2025-05-16 15:07 | XMS_ITS | Clinical Summary ---
Author Organization [employer] Address [address] [place] [address] [address] [place] [address] Care Team Providers Care Appeals Manager Name Role Phone Unavailable Primary Care [...] Screening 10/02/2023 10/01/2022 COVID-19 Vaccine (1 - 2024-2 6 season) 2025 Influenza Vaccine (#1) 2025 Dental [...]
--- OUTSIDE RECORDS SUMMARY | 2025-05-16 15:07 | XMS_ITS | Encounter Summary ---
Author Organization [employer] Address [address] [facility] 7 [place] [address] Care Team Providers Care Peoplesoft Hcm Developer Name Role Phone Unavailable Primary Care Provider Unavailabl e Encounter Details Date Type Department Care Team (Latest Contact Info) Description 08/31/2018 Abstract [facility] CONVERSIONS Dental, Provider, DDS Social History Tobacco [...]
--- OUTSIDE RECORDS SUMMARY | 2025-05-16 15:07 | XMS_ITS | Encounter Summary ---
Author Organization [employer] Address [address] [place] [address] 7 [place] [address] Care Team Providers Care Parts Lister Name Role Phone Unavailable Primary Care Provider Unavailabl e Reason for Visit * Reason Onset Date Comments medication 09/23/2022 Encounter Details Date Type Department Care Team ([facility] st Contact Info) Description 09/23/2022 Telephone [facility] ADULT DENTAL [address] [place], [place] [phone] Rhys Diaz DDS [address] [place], [place] [phone] medication Social History Tobacco Use Types Packs/Day [...]
--- OUTSIDE RECORDS SUMMARY | 2025-05-16 15:07 | XMS_ITS | Clinical Summary ---
Author Organization [facility] ity Address [address] [place] [address] Care Team Providers Care Stone Planer Name Role Phone Unavailable Primary Care Provider [...] Depression Screening 06/28/2024 COVID-19 Vaccine (1 - 2024-2 6 season) 2025 Influenza Vaccine (#1) 2025 RSV [...]
== END 2025-05-16 09:27 | disposition home or self-care (01) ==
LOC: HO.HWS 07:38
PROVIDERS: PCP Internal Medicine; Visit Provider Obstetrics & Gynecology
DX: Z01.419 Encounter for gynecological examination (general) (routine) without abnormal findings (principal); R10.20 Pelvic and perineal pain unspecified side
CPT/HCPCS: 99395; 99459

== ENCOUNTER 2025-05-17 16:21 | Outpatient (REF) | payer OTHER, SELFPAY ==
--- NOTE | ~2025-05-17 | US_ITS ---
EXAMINATION: US PELVIS CLINICAL INFORMATION: R10.20 - Pelvic and perineal pain unspecified side COMPARISON: Previous pelvic ultrasound most recent November 2022 going back to [address] of the abdomen and pelvis most recent February 2025 TECHNIQUE: Ultrasound of the pelvis is performed using both transabdominal and transvaginal transducers along with Doppler. Transvaginal imaging is performed due to inadequate visualization transabdominally. FINDINGS: Uterus: The uterus is anteverted and measures 12 x 5 x 6 cm. The double wall endometrial thickness is 10 mm. There is a small amount of fluid in the endometrial cavity. The uterus is smooth in contour and has normal myometrial echogenicity. No visible fibroid. There is similar appearance to the cervix with multiple clustered cysts, soft tissue thickening of the endometrial canal and small amount of complex fluid in the endocervical canal. Adnexa: Both ovaries are visualized transabdominally only. There is normal color flow to the adnexa. There is no ovarian torsion. There is a small amount of pelvic ascites. Right ovary measures 2.9 x 1.6 x 2.2 cm. Normal Left ovary measures 2.9 x 2.2 x 2 cm. Question small exophytic or paraovarian cyst measuring 1.3 x 0.8 x 0.9 cm. US/US pelvic and transvaginal IMPRESSION: Normal-appearing uterus. Normal thickness endometrium with small amount of fluid in the endometrial cavity. Similar appearance of the cervix with multiple clustered cysts and soft tissue thickening and complex fluid in the endocervical canal. Question tunnel cluster cysts or cervicitis. Again recommend correlation with visual inspection and consider D and C. Ovaries are seen transabdominally only. The right ovary is normal appearing. Question 1.3 cm left adnexal or paraovarian cyst. Electronically signed by: Nelsy Allen MD 05/17/2025 05:25 PM [facility]
--- OUTSIDE RECORDS SUMMARY | 2025-05-17 20:58 | XMS_ITS | Clinical Summary ---
Author Organization [employer] Address [address] [place] [address] 7t [place] [address] Care Team Providers Care Software Applications Architect Name Role Phone Unavailable Primary Care Provider [...]
--- OUTSIDE RECORDS SUMMARY | 2025-05-17 20:58 | XMS_ITS | Encounter Summary ---
Author Organization [employer] Address [address] [place] [address] 7 [place] [address] Care Team Providers Care Tetryl Boiling Tub Operator Name Role Phone Unavailable Primary Care Provider Unavailabl e Reason for Visit * Reason Onset Date Comments medication 09/23/2022 Encounter Details Date Type Department Care Team ([facility] st Contact Info) Description 09/23/2022 Telephone [facility] ADULT DENTAL [address] [place], [place] [phone] Rhys Diaz DDS [address] [place], [place] [phone] medication Social History Tobacco Use Types Packs/Day [...]
--- OUTSIDE RECORDS SUMMARY | 2025-05-17 20:58 | XMS_ITS | Encounter Summary ---
Author Organization [employer] Address [address] [facility] 7 [place] [address] Care Team Providers Care Electrical Development Engineer Name Role Phone Unavailable Primary Care Provider Unavailabl e Encounter Details Date Type Department Care Team (Latest Contact Info) Description 08/31/2018 Abstract [facility] CONVERSIONS Dental, Provider, DDS Social History [...]
--- OUTSIDE RECORDS SUMMARY | 2025-05-17 20:58 | XMS_ITS | Encounter Summary ---
Author Organization [employer] Address [address] [facility] 7 [place] [address] Care Team Providers Care Home Management Supervisor Name Role Phone Unavailable Primary Care Provider Unavailabl e Encounter Details Date Type Department Care Team (Late st Contact Info) Description 06/12/2022 Abstract [facility]ULT [facility] [address] [place] [address] Rhys Diaz DDS [address] [place] [address] Social History Tobacco Use Types Packs/Day Years [...]
--- OUTSIDE RECORDS SUMMARY | 2025-05-17 20:58 | XMS_ITS | Clinical Summary ---
Author Organization [facility] ity Address [address] [place] [address] Care Team Providers Care Sales Representative Cash Registers Name Role Phone Unavailable Primary Care Provider [...]
== END 2025-05-17 16:22 | disposition home or self-care (01) ==
LOC: HO.US 16:21
PROVIDERS: PCP Internal Medicine; Visit Provider Obstetrics & Gynecology
DX: R10.20 Pelvic and perineal pain unspecified side (principal)
CPT/HCPCS: 76830; 76856

== ENCOUNTER → 2025-05-17 16:24 | Outpatient (BNV) | payer OTHER, SELFPAY | PROVIDERS: PCP Internal Medicine; Visit Provider Radiology Diagnostic Radiology | DX: R10.20 Pelvic and perineal pain unspecified side (principal); N83.292 Other ovarian cyst, left side | CPT/HCPCS: 76830; 76856 ==

== ENCOUNTER 2025-05-29 07:58 | Outpatient (REF) | payer OTHER, SELFPAY ==
[2025-05-29 15:43] LABS: Bacterial Vaginosis PCR POSITIVE (Negative); Candida Group PCR NOT DETECTED (Not Detect); Candida glab krusei PCR NOT DETECTED (Not Detect); Trichomonas vaginalis PCR NOT DETECTED (Not Detect)
[2025-05-29 16:15] LABS: CT PCR NOT DETECTED (Not Detect.); NG PCR NOT DETECTED (Not Detect.)
== END 2025-05-29 07:59 | disposition home or self-care (01) ==
LOC: HO.LNP 07:58
PROVIDERS: PCP Internal Medicine; Visit Provider Obstetrics & Gynecology
DX: N93.9 Abnormal uterine and vaginal bleeding, unspecified (principal); N88.9 Noninflammatory disorder of cervix uteri, unspecified; R10.20 Pelvic and perineal pain unspecified side; N84.1 Polyp of cervix uteri; Z20.2 Contact with and (suspected) exposure to infections with a predominantly sexual mode of transmission
CPT/HCPCS: 58100; 81515; 87070; 87205; 87491; 87591; 88305

== ENCOUNTER 2025-05-29 07:58 | Outpatient (AMB) | payer OTHER, SELFPAY ==
--- OUTSIDE RECORDS SUMMARY | 2025-05-29 08:01 | XMS_ITS | Clinical Summary ---
Author Organization [employer] Address [address] [place] [address] 7t [place] [address] Care Team Providers Care Engineering Coordinator Name Role Phone Unavailable Primary Care Provider [...]
--- OUTSIDE RECORDS SUMMARY | 2025-05-29 08:01 | XMS_ITS | Encounter Summary ---
Author Organization [employer] Address [address] [place] [address] 7 [place] [address] Care Team Providers Care Back Tufter Name Role Phone Unavailable Primary Care Provider Unavailabl e Reason for Visit * Reason Onset Date Comments medication 09/23/2022 Encounter Details Date Type Department Care Team ([facility] st Contact Info) Description 09/23/2022 Telephone [facility] ADULT DENTAL [address] [place], [place] [phone] Rhys Diaz DDS [address] [place], [place] [phone] medication Social History Tobacco Use Types Packs/Day [...]
--- OUTSIDE RECORDS SUMMARY | 2025-05-29 08:01 | XMS_ITS | Clinical Summary ---
Author Organization [facility] ity Address [address] [place] [address] Care Team Providers Care Panel Sewer Name Role Phone Unavailable Primary Care Provider [...]
--- OUTSIDE RECORDS SUMMARY | 2025-05-29 08:01 | XMS_ITS | Encounter Summary ---
Author Organization [employer] Address [address] [facility] 7 [place] [address] Care Team Providers Care Hospital Technician Name Role Phone Unavailable Primary Care Provider Unavailabl e Encounter Details Date Type Department Care Team (Late st Contact Info) Description 06/12/2022 Abstract [facility] [address] [place] [address] Rhys Diaz DDS [address] [place] [address] Social History Tobacco Use Types Packs/Day Years [...]
--- OUTSIDE RECORDS SUMMARY | 2025-05-29 08:01 | XMS_ITS | Encounter Summary ---
Author Organization [employer] Address [address] [facility] 7 [place] [address] Care Team Providers Care Video Surveillance Technician Name Role Phone Unavailable Primary Care Provider Unavailabl e Encounter Details Date Type Department Care Team (Latest Contact Info) Description 08/31/2018 Abstract [facility] CONVERSIONS Dental, Provider, DDS Social History [...]
--- NOTE | 2025-05-29 08:04 | MHC.OFFVIS ---
Vital Signs 05/29/25 08:07 Height 5 ft 4 in Weight 197 lb BMI 33.8 BP 122/80 Intake Visit Reasons: Ultra sound followup Administrative Job Titles Required: Yes Administrative Job Titles Language: Senior Safety Support Manager Services: Administrative Job Titles Present (in person) Administrative Job Titles Name: Lotus EVANS Information Interpreted: non-clinical & clinical Accompanied by: Self / Same As Patient Allergies No Known Allergies Allergy (Verified 05/29/25 08:08) HPI Comments Details: Presenting for follow-up regarding her pelvic pain. The patient is doing well. The following workup was done so far: GC/CT negative. Last visit urine test was negative. Last visit urine dip was negative. Pelvic ultrasound showed the following: Uterus: The uterus is anteverted and measures 12 x 5 x 6 cm. The double wall endometrial thickness is 10 mm. There is a small amount of fluid in the endometrial cavity. The uterus is smooth in contour and has normal myometrial echogenicity. No visible fibroid. There is similar appearance to the cervix with multiple clustered cysts, soft tissue thickening of the endometrial canal and small amount of complex fluid in the endocervical canal. Adnexa: Both ovaries are visualized transabdominally only. There is normal color flow to the adnexa. There is no ovarian torsion. There is a small amount of pelvic ascites. Right ovary measures 2.9 x 1.6 x 2.2 cm. Normal Left ovary measures 2.9 x 2.2 x 2 cm. Question small exophytic or paraovarian cyst measuring 1.3 x 0.8 x 0.9 cm. 06/19 the patient underwent hysteroscopy D&C where during cervical dilatation cervical cyst ruptured and purulent material came out culture taken came back negative, hysteroscopy showed normal endometrial and endocervical cavity pathology was negative for endometrial hyperplasia and/or malignancy with no polyps [facility] Medical History Gallstone Cholelithiasis TOA (tubo-ovarian abscess) Surgical History S/P laparoscopic cholecystectomy (04/18/25) Hx of dilation and curettage (05/28/23) History of tubal ligation Family History Father Medical history unknown Mother Diabetes Hypertension Maternal Aunt Breast cancer Social History Household Members: Spouse Household Members Other:: son Housing: House Do you presently have visiting nurse or other home services: No Alcohol intake: current Alcohol intake frequency: holidays/special occasions only Patient Tobacco Use Status: Never used Tobacco Tobacco use type: Cigarette e-Cigarette/Vaping Use: Never Used Second Hand Smoke Exposure: No service: No Current occupational status: employed 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 hysteroscopy D&C) & the risks were discussed with the patient including but not limited: pain, uterine perforation, bleeding, infection, possible injury to bladder, bowel, ureter, possible need for blood transfusion with all its possible risks. The patient verbalized understanding all questions answered and signed consent. Urine test done in the office was negative The patient was placed into the dorsal lithotomy position; a speculum was inserted in the vagina. Using aseptic technique for the procedure, the cervix was cleansed with Betadine. The anterior lip of the cervix was grasped with a single tooth tenaculum. The pipelle introduced inside the endocervix and found resistance this was followed by drainage of blood clots and then the resistance resolved and the pipelle was introduced inside the uterine cavity without any resistance until the uterine fundus. General Cultures, GC and BV panel collected from the fluid and ECC was done afterwards. The uterus was sounded to 7 cm with a 4 mm Pipelle was used to sample the endometrial cavity. All Tissues samples were obtained and placed in formalin, in a patient labeled container and sent to the pathology department. Monsel's solution was used at the endocervical can not to secure hemostasis. At the end of the procedure, there was minimal bleeding noted The patient tolerated the procedure well and was discharged in good condition with the following instructions: Nothing in the vagina until the bleeding stops. No sex until the bleeding stops, to call if any of the following occurs: fever (>100.4), flu-like symptoms, abdominal pain, heavy bleeding, four smelling vaginal discharge. The patient was instructed to schedule a Follow up appointment in 2 weeks to discuss pathology results of the biopsy and treatment options. This note was generated with a voice recognition program. Some errors may have been overlooked during the review of this note. Sometimes these errors may affect the content or meaning of a given sentence. [id number] Biopsy Assessment & Plan Assessment & Plan (1) Abnormality of cervix: Comment: By ultrasound Code(s): N88.9 - Noninflammatory disorder of cervix uteri, unspecified Category: Medical Plan: Discussed with the patient the finding on pelvic ultrasound. Recommended to the patient that the next step is an endometrial/endocervical sampling via hysteroscopy D&C possible polypectomy versus endometrial biopsy/ECC to r/o endometrial/ endocervical pathology including hyperplasia or cancer. All the pros and cons risks and benefits of each approach were discussed with the patient, endometrial biopsy/ECC being less invasive, office procedure with less sensitivity and inability diagnose a polyp and removal versus hysteroscopy done under anesthesia more invasive more sensitive to endometrial cancer and possibility of diagnosing and endometrial /endocervical polyp with the possibility of polypectomy. All questions were answered pt verbalized understanding and decided to proceed with endometrial biopsy/ECC. The procedure done, see procedure note Orders: Orders AMB Endometrial Biopsy Today R31.29 - Other microscopic hematuria Coding Level of Care Code Est Pt Level 3 (24824) Procedure Only Diagnoses Abnormality of cervix N88.9 CPT Codes Endometrial Biopsy - CPT: 10724-[id number] Biopsy ([id number])
[2025-05-29 08:07] VITALS: BP 122/80; BMI 33.8
== END 2025-05-29 09:17 | disposition home or self-care (01) ==
LOC: HO.HWS 07:59
PROVIDERS: PCP Internal Medicine; Visit Provider Obstetrics & Gynecology
DX: N88.9 Noninflammatory disorder of cervix uteri, unspecified (principal)
CPT/HCPCS: 58100; 99213

== ENCOUNTER 2025-06-25 08:24 | Outpatient (AMB) | payer OTHER, SELFPAY ==
--- NOTE | 2025-06-25 08:24 | A.OFFVIS_ITS ---
Intake Visit Reasons: Biopsies Results Concrete Stone Finishing Supervisor Required: Yes Concrete Stone Finishing Supervisor Language: Yard Supervisor Services: Concrete Stone Finishing Supervisor Present (in person) Concrete Stone Finishing Supervisor Name: Lotus Wilson Information Interpreted: non-clinical & clinical Allergies No Known Allergies Allergy (Verified 06/25/25 08:25) HPI Comments Details: The patient is presenting after endometrial biopsy /ECC . The patient has no complaints, no vaginal bleeding, no feverishness chills or abdominal pain. The endometrial biopsy pathology report showed the following: A. Endometrium, biopsy: Benign inactive endometrium with focal breakdown and abundant blood; no atypia or carcinoma. B. Endocervix, curettage: Benign endocervical glandular and squamous epithelium; negative for dysplasia Cultures of the fluid that came after on the cervix were negative Last Co testing in 10/17 was negative PFSH Medical History Gallstone Cholelithiasis TOA (tubo-ovarian abscess) Surgical History S/P laparoscopic cholecystectomy (04/18/25) Hx of dilation and curettage (05/28/23) History of tubal ligation Family History Father Medical history unknown Mother Diabetes Hypertension Maternal Aunt Breast cancer Social History Household Members: Spouse Household Members Other:: son Housing: House Do you presently have visiting nurse or other home services: No Alcohol intake: current Alcohol intake frequency: holidays/special occasions only Patient Tobacco Use Status: Never used Tobacco Tobacco use type: Cigarette e-Cigarette/Vaping Use: Never Used Second Hand Smoke Exposure: No service: No 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 occupational status: employed 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 Sexual orientation: Straight/Heterosexual Gender identity: Female Cognitive needs: No Hearing needs: No Vision needs: No Female Reproductive History Menstrual Age of Menarche: 11 Review of Systems Const All systems reviewed & are unremarkable except as noted in HPI and below Reports as per HPI and Reports no additional complaints GI Reports no additional complaints Reports no additional complaints Telehealth Telehealth Telehealth Platform: [facility] Location of provider rendering services: practice address Location of patient: address on file Patient Identification confirmed using: Name, : Yes Telehealth method: video Patient verbally consented to treatment: Yes Patient verbally consented to billing insurance company: Yes Patient informed of any privacy concerns related to visit: Yes Minutes spent on Phone/Video with Pt.: 3 Assessment & Plan Assessment & Plan (1) Abnormality of cervix: Comment: By ultrasound Code(s): N88.9 - Noninflammatory disorder of cervix uteri, unspecified Category: Medical Plan: Discussed with the patient the results of the cultures, ECC and EMB. Instructions given to patient to call in case of abnormal uterine bleeding, pelvic pain , fever above 100.4, nausea or vomiting or any other concerns. All questions answered, the patient verbalized understanding I spent a total of 20 minutes reviewing the chart, talking to the patient via video and documenting in the medical record. Coding Level of Care Code Tele Est Pt Level 3 (13550) Diagnoses Abnormality of cervix N88.9
--- OUTSIDE RECORDS SUMMARY | 2025-06-25 08:27 | XMS_ITS | Encounter Summary ---
Author Organization [employer] Address [address] [facility] 7 [place] [address] Care Team Providers Care Communication Assistant Name Role Phone Unavailable Primary Care Provider Unavailabl e Encounter Details Date Type Department Care Team (Latest Contact Info) Description 08/31/2018 Abstract [facility] CONVERSIONS Dental, Provider, DDS Social History [...]
--- OUTSIDE RECORDS SUMMARY | 2025-06-25 08:27 | XMS_ITS | Encounter Summary ---
Author Organization [employer] Address [address] [facility] 7 [place] [address] Care Team Providers Care Hot Braider Name Role Phone Unavailable Primary Care Provider Unavailabl e Encounter Details Date Type Department Care Team (Late st Contact Info) Description 06/12/2022 Abstract [facility] D[facility] [address] [place] [address] Rhys Diaz DDS [address] [place] [address] Social History Tobacco Use Types Packs/Day Years [...]
--- OUTSIDE RECORDS SUMMARY | 2025-06-25 08:27 | XMS_ITS | Encounter Summary ---
Author Organization [employer] Address [address] [place] [address] 7 [place] [address] Care Team Providers Care Help Desk Engineer Name Role Phone Unavailable Primary Care Provider Unavailabl e Reason for Visit * Reason Onset Date Comments medication 09/23/2022 Encounter Details Date Type Department Care Team ([facility] st Contact Info) Description 09/23/2022 Telephone [facility] ADULT DENT[facility] [address] [place], [place] [phone] Rhys Diaz DDS [address] [place], [place] [phone] medication Social History Tobacco Use Types Packs/Day [...]
--- OUTSIDE RECORDS SUMMARY | 2025-06-25 08:27 | XMS_ITS | Clinical Summary ---
Author Organization [employer] Address [address] [place] [address] [address] [place] [address] Care Team Providers Care Lamp Cleaner Name Role Phone Unavailable Primary Care Provider [...]
--- OUTSIDE RECORDS SUMMARY | 2025-06-25 08:27 | XMS_ITS | Clinical Summary ---
Author Organization [facility] ity Address [address] [place] [address] Care Team Providers Care Product Safety Technical Assistant Name Role Phone Unavailable Primary Care [...]
== END 2025-06-25 09:03 | disposition home or self-care (01) ==
LOC: HO.HWS 08:24
PROVIDERS: PCP Internal Medicine; Visit Provider Obstetrics & Gynecology
DX: N88.9 Noninflammatory disorder of cervix uteri, unspecified (principal)
CPT/HCPCS: 99213